=== PATIENT | male | born 1960 | race Caucasian/White ===

== ENCOUNTER 2017-07-22 13:57 | Emergency (ER) | payer OTHER ==
[2017-07-22 14:25] VITALS: BP 162/90
--- NOTE | 2017-07-22 15:08 | UC ---
FLU HPI - HPI Summary HPI Summary: Pt presents with fatigue and headache for 1 month. He has a headache 4-5 days out of the week. He had labwork done through his insurance company on 07/01 and his BUN was abnormal, but he is unsure what the value was. Since that time he has been feeling increasingly faint. He tells me that he has been taking 2-3 tylenol every 3-4 hours for about a month due to his headache. He also says that about 2 years ago this happened to him and he was in the ER requiring 6 liters of fluid. He has a history of bariatric surgery and diabetes. Denies fever, chills, recent illness, or recent injury. No abdominal pain, n/v/d/c - History of Current Complaint Chief Complaint: UCGeneralIllness Stated Complaint: DEHYDRATED Time Seen by Provider: 07/22/17 14:23 Hx Obtained From: Patient Pain Intensity: 0 Pain Scale Used: 0-10 Numeric - Allergy/Home Medications Allergies/Adverse Reactions: Allergies Allergy/AdvReac Type Severity Reaction Status Date / Time Adhesive Tape Allergy BURNING, Verified 07/22/17 14:26 IRRITATION TO SKIN clindamycin Allergy Diarrhea Verified 07/22/17 14:26 Penicillins Allergy Unknown Verified 07/22/17 14:26 Reaction Details BEE STING Allergy Anaphylatic Uncoded 07/22/17 14:26 Shock Home Medications: Home Medications Acetaminophen [Acetaminophen Extra Strength] 2 - 3 tab PO Q3HR PRN 07/22/17 [ History Confirmed 07/22/17] Albuterol HFA INHALER* [Ventolin HFA Inhaler*] 1 puff INH Q4HR PRN 07/22/17 [ History Confirmed 07/22/17] Vilazodone (NF) [Viibryd (NF)] 20 mg PO DAILY 07/22/17 [History Confirmed ] PMH/Surg Hx/FS Hx/Imm Hx Endocrine History: Diabetes Respiratory History: Asthma - Surgical History Surgical History: Yes Surgery Procedure, Year, and Place: 2010 LAPAROSCOPIC GASTRIC BYPASS- [facility] , [facility] [place] 2011 LAPAROSCOPIC REDUCTION AND REPAIR INTERNAL HERNIA, [facility] [place] - Family History Known Family History: Positive: Unknown - Social History Lives: With Family Alcohol Use: Rare Alcohol Amount: 2xmonth Substance Use Type: None Smoking Status (MU): Former Smoker Type: Cigarettes Amount Used/How Often: 1PPD Have You Smoked in the Last Year: No When Did the Patient Quit Smoking/Using Tobacco: 1995 - Immunization History Most Recent Influenza Vaccination: 2013 Most Recent Tetanus Shot: unable to determine Most Recent Pneumonia Vaccination: 2012 Review of Systems Constitutional: Fatigue, Other - Body aches Skin: Negative Eyes: Negative ENT: Negative Respiratory: Negative Cardiovascular: Negative Gastrointestinal: Negative Genitourinary: Hematuria Motor: Negative Neurovascular: Negative Musculoskeletal: Negative Neurological: Headache Psychological: Negative All Other Systems Reviewed And Are Negative: Yes Physical Exam - Summary Physical Exam Summary: GENERAL: NAD. WDWN. No pain distress. SKIN: No rashes, sores, ulcers, masses, lesions. HEENT: Head: AT/NC Eyes: EOM intact. PERRLA. NECK: Supple. Nontender. No lymphadenopathy. CHEST: CTAB. No r/r/w. No accessory muscle use. Breathing comfortably and in no distress. CV: Bradycardia. Without m/r/g. Pulses intact. Brisk cap refill. ABDOMEN: NTTP. Bowel sounds present. No CVA tenderness. NEURO: Alert. CN II-XII grossly intact. PSYCH: Age appropriate behavior. Triage Information Reviewed: Yes Vital Signs: Initial Vital Signs Temp 96.9 F 07/22/17 14:06 Pulse 50 07/22/17 14:06 Resp 16 07/22/17 14:06 BP 162/90 07/22/17 14:06 Pulse Ox 100 07/22/17 14:06 Diagnostics - EKG Cardiac Rate: Bradycardia Cardiac Rhythm: Sinus: Normal ST Segment: Normal Flu Course/Dx - Course Course Of Treatment: EKG - rate 47bpm. Sinus bradycardia. No ST changes as read by Dr. Jiang. UA with protein, glucose, blood, nitrite, bilirubin, and leuks. POC glucose at 145. I spoke with the patient and advised him to go by ambulance to the [facility] [place] ED for further evaluation. I am suspicious of lactic acidosis, rhabdo, renal failure, sepsis, and dehydration. He refused ambulance transfer. I explained the risks of this to him and he signed out AMA, but said he would go to the ED by private car. - Differential Dx/Diagnosis Provider Diagnoses: Hematuria. Headache. Dizziness. Bradycardia. Proteinuria Discharge - Discharge Plan Condition: Fair Disposition: AGAINST MEDICAL ADVICE Referrals: Kathryn Espitia DC [Primary Care Provider] -
--- NOTE | 2017-07-23 15:10 | PN ---
Progress Note - Progress Note Date of Service: 07/23/17 Note: FOllow up labs- + for UTI, patient left AMA from urgent care, patient given Bactrim by AJuan Antonio Gutierrez, nurse to call to confirm. -Vandana Pickett.
== END 2017-07-22 14:46 | disposition left against medical advice (07) ==
LOC: UCEAST 13:57
DX: N39.0 Urinary tract infection, site not specified (principal); B96.20 Unspecified Escherichia coli [E. coli] as the cause of diseases classified elsewhere; R31.9 Hematuria, unspecified; R80.9 Proteinuria, unspecified; R51 Headache; R42 Dizziness and giddiness; R00.1 Bradycardia, unspecified; E11.9 Type 2 diabetes mellitus without complications; J45.909 Unspecified asthma, uncomplicated; Z98.84 Bariatric surgery status; Z88.1 Allergy status to other antibiotic agents; Z91.030 Bee allergy status; Z88.0 Allergy status to penicillin; Z91.048 Other nonmedicinal substance allergy status; Z87.891 Personal history of nicotine dependence
CPT/HCPCS: 81003; 87077; 87086; 87186; 93005; 99212; G0463

== ENCOUNTER 2017-07-22 14:56 | Observation (INO) | payer OTHER ==
[2017-07-22] MEDS ORDERED: NS 0.9% 1000 ML* 1,000 ML IV ONE (15:20)
[2017-07-22] MEDS ORDERED: Meclizine TAB* 12.5 MG PO ONE (15:20)
[2017-07-22 15:53] LABS: ABS Basophils 0 10^3/ul (0-0.2); ABS Eosinophils 0 10^3/ul (0-0.6); ABS Lymphocytes 1.2 10^3/ul (1.0-4.8); ABS Monocytes 0.6 10^3/ul (0-0.8); ABS Neutrophils 10.5 10^3/ul (1.5-7.7); ABS Nucleated RBC 0 10^3/ul; Eosinophil % 0.3 % (0-6); Hematocrit 43 % (42-52); Hemoglobin 14.3 g/dl (14.0-18.0); Lymphocyte % 9.3 % (25-47); Mean Corpuscular HGB Conc 34 g/dl (31-36); Mean Corpuscular Hemoglobin 28 pg (27-31); Mean Corpuscular Volume 84 fL (80-94); Mean Platelet Volume 7 um3 (7.4-10.4); Nucleated Red Blood Cells % 0; Platelet Count 234 10^3/ul (150-450); Red Cell Distribution Width 14 % (10.5-15); White Blood Count 12.4 10^3/ul (3.5-10.8)
[2017-07-22 16:16] LABS: EGFR Non-African American 94.9 (>60)
--- NOTE | 2017-07-22 16:18 | RAD ---
Indication: Dizziness. CT of the brain was performed without IV contrast. Ventricular structures are midline. No midline shift is noted. The extra-axial spaces are unremarkable. There is no evidence of intracranial mass or hemorrhage. Hypodensity in the right posterior parietal lobe is noted. This is consistent with infarct age of which is undetermined. Paranasal sinuses and orbits are unremarkable. IMPRESSION: No intracranial lesion is identified. Right posterior parietal lobe infarct. Age of this is undetermined. No hemorrhage is noted.
[2017-07-22] MEDS ORDERED: Aspirin Low Dose CHEW TAB* 81 MG PO ONE (16:30)
[2017-07-22] MEDS ORDERED: Morphine INJ* 4 MG/ML 1 ML SYRINGE (NEW SYRINGE VERSION) IV ONE (16:30)
[2017-07-22] MEDS ORDERED: Ondansetron INJ* 2 MG/ML VIAL IV ONE (16:31)
--- NOTE | 2017-07-22 16:34 | RAD ---
Indication: Dizziness. 2 views of the chest including dual energy PA views demonstrates no mediastinal shift. Heart is normal size and configuration. Lung bryan appear clear. IMPRESSION: No active cardiopulmonary disease is noted.
[2017-07-22 17:06] LABS: Urine Appearance Turbid; Urine Blood 3+ (Negative); Urine Color Amber; Urine Ketones Trace (Negative); Urine Protein 2+(100 mg/dL) (Negative); Urine Specific Gravity 1.016 (1.010-1.030); Urine Urobilinogen Negative (Negative)
[2017-07-22] MEDS ORDERED: Ciprofloxacin 400MG IVPREMIX(* 400 MG/200 ML BAG IVPB ONE (17:29)
[2017-07-22] MEDS ORDERED: NS 0.9% 1000 ML* 1,000 ML IV SCH (18:00)
[2017-07-22] MEDS ORDERED: Ondansetron INJ* 2 MG/ML VIAL IV PRN (18:00)
[2017-07-22] MEDS ORDERED: Acetaminophen TAB* 325 MG PO PRN (18:00)
[2017-07-22] MEDS ORDERED: Albuterol HFA INHALER* 8 gm MDI INH PRN (18:03)
[2017-07-22] MEDS ORDERED: Iodixanol* (CONTRAST) 320 MG/ML 100 ML SDV IV ONE (18:39)
[2017-07-22] MEDS ORDERED: cefTRIAXone VIAL(*) 1,000 MG in NS 0.9% 50 ML* 50 ML IVPB SCH (20:00)
--- NOTE | 2017-07-22 20:00 | RAD ---
Indication: Stroke. Contrast: Administered 80.3 ml of VISAPAQUE 320 mg/ml CTA of the neck was performed after IV contrast demonstration. CTA of the head was also performed. Coronal and sagittal reconstructed images were obtained. The aortic arch is unremarkable. The great vessels are unremarkable. The common carotid arteries demonstrates minimal intimal wall thickening. Plaque is noted in the left carotid bulb. The left internal carotid artery demonstrates no evidence of carotid artery dissection. The right carotid artery also demonstrates no evidence of carotid artery dissection although the internal carotid arteries are tortuous bilaterally. The vertebral arteries demonstrates no evidence of vertebral artery dissection. No stenosis is noted. The intracranial carotid arteries demonstrates the cavernous portions of the carotid arteries to be patent. Anterior and middle cerebral arteries are intact. No evidence of aneurysmal dilatation or branch occlusion is noted. The basilar artery and posterior cerebral arteries are otherwise unremarkable. No aneurysmal dilatation is noted. IMPRESSION: No evidence of carotid artery or vertebral artery dissection. No aneurysmal dilatation is noted. No branch occlusion is noted. Minimal calcific plaque is noted in the left carotid bulb.
--- NOTE | 2017-07-22 20:48 | RAD ---
Indication: Dizziness. Sagittal and axial T1, axial T2, FLAIR, diffusion and susceptibility weighted images of the brain were obtained. Comparison is made with prior CT done earlier the same day. Ventricular structures are midline. No midline shift is noted. The extra-axial spaces are unremarkable. There is no evidence of intracranial mass or hemorrhage. Periventricular signal abnormality likely represents chronic ischemic White matter change on the FLAIR images. Encephalomalacia involving the right posterior parietal lobe is noted. No restriction of diffusion is noted. Susceptibility weighted images demonstrates no evidence of susceptibility weighted artifact. The FLAIR images demonstrates no significant areas of vasogenic edema with scattered punctate subcortical signal abnormalities. The brainstem and posterior fossa are unremarkable. The cerebellopontine angles are unremarkable. Mastoid air cells and paranasal sinuses are otherwise unremarkable. IMPRESSION: Chronic ischemic White matter change. No evidence of acute infarct is noted.
--- NOTE | 2017-07-22 20:59 | HP ---
CC: [facility] Tamie Levin; Dr. Oliveira * HISTORY AND PHYSICAL: DATE OF ADMISSION: 07/22/17 PRIMARY CARE PROVIDER: [facility] Poonam. ATTENDING PHYSICIAN WHILE IN THE HOSPITAL: Dr. Samson Yeboah * (report dictated by Herman Pacheco NP) CONSULTING NEUROLOGIST: Dr. Oliveira. CHIEF COMPLAINT: Dizziness. HISTORY OF PRESENT ILLNESS: Mr. Howard is a 56-year-old male patient. He has a history of cluster headaches, history of asthma, also carries a history of anxiety. He comes into the ED today stating that he was out lunch today with a friend and he was noticing that he just felt dizzy, felt lightheaded. He had been noticing this morning that he was having difficulty with urination. His urine appeared to be very concentrated. He was having urgency and hesitancy with the stream this afternoon. When he did urinate, he did have some pain with urination. He denied any fevers or chills. No flank pain or abdominal pain. He did notice some hematuria as well. He was concerned though because of the dizziness and he thought maybe he was dehydrated. He says he did not feel like the room was spinning. He said the dizziness got worse when he stood up. Denied having any facial drooping. Denied having any weakness to one side. Denied having any trouble with speech. He was concerned he went to Urgent Care and they transferred him to the hospital here, because there was concern on his initial EKG, there was bradycardia. We were asked to evaluate and ultimately it was found that the patient had the UTI and it appeared that he had a stroke of indeterminate age on the right parietal area. He denies having any vomiting or diarrhea. Denies having any abdominal pain. PAST MEDICAL HISTORY: Significant for: 1. Cluster headaches. 2. Anxiety. 3. Asthma. PAST SURGICAL HISTORY: 1. He has had gastric bypass. 2. He has had inguinal hernia repair. HOME MEDICATIONS: Include: 1. Tylenol Extra Strength 1 to 3 tablets every 3 hours as needed. 2. He also is taking Viibryd 20 mg daily. 3. He is taking multivitamin 2 tablets p.o. b.i.d. 4. Albuterol 1 puff inhaled every 4 hours as needed. ALLERGIES TO MEDICATIONS: Include CLINDAMYCIN and PENICILLIN along with TAPE. FAMILY HISTORY: His mother did have a history of a brain aneurysm. Father had a history of GA and CVA. His multiple relatives, multiple brothers with cancers and sisters also with cancer. He also has a sister that did have alpha antitrypsin disorder. SOCIAL HISTORY: He is a former smoker, he quit in 1995. He does not drink alcohol. Surrogate decision maker is his son. REVIEW OF SYSTEMS: There is no documented fever. He denied having any significant weight change. There was no double vision. He denies having any ear discharge. He denied having any rhinorrhea. No sore throat, no thyroid enlargement. Denies having any chest pain. There is no orthopnea. No nocturnal dyspnea. There was no loss of consciousness. No pruritus and no skin ulceration. Again, no nausea, no vomiting. There was dysuria, there was urgency and frequency. Review of 14 systems completed, all others negative. PHYSICAL EXAMINATION GENERAL: At this time, Mr. Howard is a 56-year-old male patient. He is sitting in the ED stretcher. He does not appear to be in any acute distress. VITAL SIGNS: Blood pressure 181/85, pulse 61, respirations 17, O2 sat 95%, temperature 97.4. HEENT: Head: Atraumatic, normocephalic. Eyes: EOMs are intact. Sclerae anicteric, not pale. Throat: Oral mucosa appears to be moist. No oropharyngeal erythema. NECK: Supple. LUNGS: Clear to auscultation bilaterally. No wheezing, rales, or rhonchi. HEART: Sounds S1, S2. Regular rate and rhythm. No murmurs, rubs, or gallops. ABDOMEN: Soft, flat, nontender. Bowel sounds were present. EXTREMITIES: Pulses were 2+ throughout. He had 5/5 strength. NEUROLOGIC: The patient is awake, he is alert, he is oriented x3. Finger-to- nose intact bilaterally. [id number] intact bilaterally. He had no gross focal deficits. SKIN: Intact. DIAGNOSTIC STUDIES/LAB DATA: WBC of 4.4, RBC of 5.10, hemoglobin 14.3, hematocrit of 43, platelet count of 234. Sodium 131, potassium of 3.9, chloride 99, bicarb of 27, BUN 10, creatinine 0.84, glucose of 112, lactate 0.8 , calcium 9.1, mag 2.1. Total bili 0.8, AST 22, ALT 17, alk phos 79. CK 139. Troponin 0. CRP of 1. TSH was normal. Urine showed 2+ proteins, trace ketones , 3+ blood, positive nitrite, 3+ leukocyte esterase, 3+ wbc's, 3+ rbc's, 3+ glucose. Toxicology was negative. He did have an EKG obtained today. It does show a sinus bradycardia at a rate of 47. No ST elevations or T-wave inversions. When you look at the repeat EKG , the heart rate now is 53. When you look back to an EKG from 2 years ago, his heart rate was noted to be 51 and no acute changes in the morphology. No ST elevations or T-wave inversions. He did have a chest x-ray obtained today which revealed no active cardiopulmonary disease. He had a CT brain obtained today, impression: No intracranial lesions identified, right posterior parietal lobe infarct, age of this is indeterminate. No hemorrhage is noted. Old medical records were reviewed. ASSESSMENT AND PLAN: Mr. Howard is a 56-year-old male patient coming into the ED today with complaints of dizziness. On evaluation here, it was found that he had an age-indeterminate cerebrovascular accident. Also, found to have urinary tract infection. We were asked to evaluate for admission. He will be admitted under observation status for: 1. Dizziness. Etiology is unclear, certainly could be related to the urinary tract infection exacerbating an old stroke. The plan at this point will be to get Neurology input, start the patient on an aspirin. Work up the cerebrovascular accident with CTA head and neck, echo with bubble study, get an MRI of the brain, check lipid panel, A1c in the morning. Place him on telemetry. Get neuro checks every 2 hours and follow this closely. 2. Urinary tract infection. I did put him on Rocephin. When he has finished the antibiotic course, he will need to follow up with Urology in the outpatient setting. 3. History of cluster headaches. P.r.n. Tylenol has been ordered. I am checking the Tylenol level as he has been taking as excessive amount. Education has been provided to the patient. This will need to be reinforced at discharge about the amount that he has been able to take. 4. Asthma. I have ordered his p.r.n. albuterol. 5. DVT prophylaxis. SCDs. 6. Elevated blood pressure in the setting of possible acute cerebrovascular accident. I will allow for permissive hypertension. If the systolics get above 200 or the diastolics above 110, I will treat. 7. Code status. Full code. 8. Fluids, electrolytes, and nutrition. He can have a heart-healthy diet. TIME SPENT: On admission was 60 minutes, greater than half of the time was spent [id number] with the patient obtaining my history and physical, other half of the time was spent going over the plan of care with the patient and implementing plan of care. I did discuss the plan of care with my attending, Dr. Yeboah; he is in agreement. HERMAN PACHECO, AMI [id number]/[facility] #: [id number] KIRK
[2017-07-23 06:28] LABS: ABS Basophils 0.1 10^3/ul (0-0.2); ABS Eosinophils 0.2 10^3/ul (0-0.6); ABS Lymphocytes 1.7 10^3/ul (1.0-4.8); ABS Monocytes 0.7 10^3/ul (0-0.8); ABS Neutrophils 7.8 10^3/ul (1.5-7.7); ABS Nucleated RBC 0 10^3/ul; Eosinophil % 1.8 % (0-6); Hematocrit 40 % (42-52); Hemoglobin 13.4 g/dl (14.0-18.0); Lymphocyte % 16.5 % (25-47); Mean Corpuscular HGB Conc 34 g/dl (31-36); Mean Corpuscular Hemoglobin 28 pg (27-31); Mean Corpuscular Volume 85 fL (80-94); Mean Platelet Volume 7 um3 (7.4-10.4); Nucleated Red Blood Cells % 0; Platelet Count 218 10^3/ul (150-450); Red Blood Count 4.72 10^6/ul (4.0-5.4); Red Cell Distribution Width 14 % (10.5-15); White Blood Count 10.4 10^3/ul (3.5-10.8)
[2017-07-23 06:38] LABS: INR 1.01 (0.77-1.02)
[2017-07-23 06:45] LABS: EGFR Non-African American 93.6 (>60)
[2017-07-23] MEDS ORDERED: Aspirin Low Dose CHEW TAB* 81 MG PO SCH (09:00)
[2017-07-23] MEDS ORDERED: VILAZODONE 10 MG PO SCH (09:00)
[2017-07-23 09:02] VITALS: BP 143/87
--- NOTE | 2017-07-23 09:17 | ED ---
Sourav Lee Angela, scribed for Sebastián Romero MD on 07/22/17 at 1528 . Dizziness - HPI Summary HPI Summary: This pt is a 56 y/o male presenting to [facility] referred by [facility] c/o frequent headaches for the past 1 month associated with dizziness today. Pt describes dizziness as feeling like passing out. Denies room spinning sensation. Pt notes additionally he has felt fatigued, lightheaded for the past couple of hours, and dehydrated x3 days. Denies chest pain, SOB, fever, chills, abd pain. He reports he has been drinking "too much cappuccino" and has had decreased in water intake. Pt had lab work on 07/01/17 and notes everything was normal except he had an "orange" BUN. PMHx includes bariatric surgery and diabetes. - History Of Current Complaint Chief Complaint: EDGeneral Stated Complaint: ABNORMAL EKG-CC TRANSFER Hx Obtained From: Patient Onset/Duration: Still Present Timing: Days Severity Currently: Moderate Character: Lightheaded, Weak Aggravating Factor(s): Nothing Alleviating Factor(s): Nothing Associated Signs And Symptoms: Positive: Other: - NEG: abd pain. Negative: Chest Pain, SOB, Fever, Chills - Allergies/Home Medications Allergies/Adverse Reactions: Allergies Allergy/AdvReac Type Severity Reaction Status Date / Time Adhesive Tape Allergy BURNING, Verified 07/22/17 14:26 IRRITATION TO SKIN clindamycin Allergy Diarrhea Verified 07/22/17 14:26 Penicillins Allergy Unknown Verified 07/22/17 14:26 Reaction Details BEE STING Allergy Anaphylatic Uncoded 07/22/17 14:26 Shock Home Medications: Home Medications Pediatric Multivitamin No.101 [Gummy] 2 tab PO BID 07/22/17 [History Confirmed 07/22/17] PMH/Surg Hx/FS Hx/Imm Hx Endocrine/Hematology History: Reports: Hx Diabetes - HX OF BEFORE WEIGHT LOSS Cardiovascular History: Reports: Hx Hypertension - HX OF, BUT NO MEDICATION Denies: Hx Congestive Heart Failure Respiratory History: Reports: Hx Asthma - USES INHALER, Hx Chronic Bronchitis, Hx Chronic Obstructive Pulmonary Disease (COPD), Hx Pneumonia, Hx Sleep Apnea - HX OF GI History: Reports: Hx Gastroesophageal Reflux Disease - ACID REFLUX - NO MEDS , Other GI Disorders - gastric bypass surgery, 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 History: Denies: Hx Renal Disease Sensory History: Reports: Hx Contacts or Glasses - GLASSES Denies: Hx Hearing Aid Opthamlomology History: Reports: Hx Contacts or Glasses - GLASSES Neurological History: Reports: Hx Headaches - CLUSTER HEADACHES, Hx Migraine - EVERY 2 WEEKS - Surgical History Surgery Procedure, Year, and Place: 2010 LAPAROSCOPIC GASTRIC BYPASS- [facility] , [facility] [place]. 2011 LAPAROSCOPIC REDUCTION AND REPAIR INTERNAL HERNIA, [facility] [place] Hx Anesthesia Reactions: No Infectious Disease History: No Infectious Disease History: Denies: Traveled Outside the [place] in Last 30 Days - Family History Known Family History: Positive: Cardiac Disease - Father: [place] Family History: Father: stroke. Sister: liver and stomach CA - Social History Alcohol Use: Rare Alcohol Amount: 2xmonth Substance Use Type: Reports: None Smoking Status (MU): Former Smoker Type: Cigarettes Amount Used/How Often: 1PPD Have You Smoked in the Last Year: No Review of Systems Constitutional: Other - dehydrated Positive: Fatigue. Negative: Fever, Chills Negative: Chest Pain Negative: Shortness Of Breath Negative: Abdominal Pain Neurological: Other - POS: dizziness, lightheadedness Positive: Headache All Other Systems Reviewed And Are Negative: Yes Physical Exam - Summary Physical Exam Summary: VITAL SIGNS: Reviewed. GENERAL: Patient is a well-developed and nourished male who is lying comfortable in the stretcher. Patient is not in any acute respiratory distress. HEAD AND FACE: No signs of trauma. No ecchymosis, hematomas or skull depressions. No sinus tenderness. EYES: PERRLA, EOMI x 2, No injected conjunctiva, no nystagmus. EARS: Hearing grossly intact. Ear canals and tympanic membranes are within normal limits. MOUTH: Oropharynx within normal limits. NECK: Supple, trachea is midline, no adenopathy, no JVD, no carotid bruit, no c- spine tenderness, neck with full ROM. CHEST: Symmetric, no tenderness at palpation LUNGS: Clear to auscultation bilaterally. No wheezing or crackles. CVS: Regular rate and rhythm, S1 and S2 present, no murmurs or gallops appreciated. ABDOMEN: Soft, non-tender. No signs of distention. No rebound no guarding, and no masses palpated. Bowel sounds are normal. EXTREMITIES: FROM in all major joints, no edema, no cyanosis or clubbing. NEURO: Alert and oriented x 3. No acute neurological deficits. Speech is normal and follows commands. SKIN: Dry and warm GCS: 15 Triage Information Reviewed: Yes Vital Signs On Initial Exam: Initial Vitals Temp Pulse Resp BP Pulse Ox 97.4 F 46 18 162/86 98 07/22/17 14:58 07/22/17 14:58 07/22/17 14:58 07/22/17 14:58 07/22/17 14:58 Vital Signs Reviewed: Yes - Miguel A Coma Scale Best Eye Response: 4 - Spontaneous Best Motor Response: 6 - Obeys Commands Best Verbal Response: 5 - Oriented Coma Scale Total: 15 Diagnostics - Vital Signs Vital Signs Temp Pulse Resp BP Pulse Ox 07/22/17 14:58 97.4 F 46 18 162/86 98 - Laboratory Result Diagrams: 07/22/17 15:40 07/22/17 15:40 Lab Statement: Any lab studies that have been ordered have been reviewed, and results considered in the medical decision making process. - Radiology Chest XR Xray Interpretation: No Acute Changes - IMPRESSION: No active cardiopulmonary disease is noted. Dr. Romero has reviewed this radiology report. Radiology Interpretation Completed By: Radiologist - CT Brain CT CT Interpretation: No Acute Changes - IMPRESSION: No intracranial lesion is identified. Right posterior parietal lobe infarct. Age of this is undetermined. No hemorrhage is noted. Dr. Romero has reviewed this radiology report. CT Interpretation Completed By: Radiologist - EKG 15:00 Cardiac Rate: Bradycardia EKG Rhythm: Sinus Bradycardia - at 53 bpm EKG Interpretation: No ST elevation. - Additional Comments Diagnostic Additional Comments: MRI Brain official radiology report is pending. Please see [facility]. Dizzy Course/Dx - Course Assessment/Plan: This pt is a 56 y/o male presenting to [facility] referred by [facility] c/o frequent headaches for the past 1 month associated with dizziness today. Pt describes dizziness as feeling like passing out. Denies room spinning sensation. Pt notes additionally he has felt fatigued, lightheaded for the past couple of hours, and dehydrated x3 days. Denies chest pain, SOB, fever, chills, abd pain. He reports he has been drinking "too much cappuccino" and has had decreased in water intake. Pt had lab work on 07/01/17 and notes everything was normal except he had an "orange" BUN. PMHx includes bariatric surgery and diabetes. Test results without any significant abnormalities except for WBC of 12.4. Urinalysis is positive for UTI. Pt was given Ciprofloxacin for his UTI. Chest XR shows on active cardiopulmonary disease is noted. Head CT shows no intracranial lesion is identified. Right posterior parietal lobe infarct. Age of this is undetermined. No hemorrhage is noted. I discussed the case with Dr. Dao, neurologist, who recommends an MRI. Since the pt continues to be dizzy and feeling like passing out despite the Meclizine, I discussed the test results and findings with Dr. Yeboah, hospitalist, who accepted the pt for admission. Pt is hemodynamically stable, alert and oriented x3. - Diagnoses Provider Diagnoses: Near syncopal episode, Intractable dizziness, Undetermined CVA - Provider Notifications Discussed Care Of Patient With: Cal Dao Time Discussed With Above Provider: 16:33 Instructed by Provider To: Other - I discussed pt care with Dr. Dao, neurologist, who recommends an MRI. [17:15] I discussed with Dr. Yeboah, hospitalist, who has agreed to admit the pt. Discharge - Discharge Plan Condition: Stable Disposition: ADMITTED TO [facility] Referrals: No Primary Care Phys,NOPCP [Primary Care Provider] - The documentation as recorded by the Sourav ariza Angela accurately reflects the service I personally performed and the decisions made by me, Sebastián Romero MD.
--- NOTE | 2017-07-23 10:32 | DCNOTE ---
Subjective Date of Service: 07/23/17 Interval History: Pt reports he feels much better and would like to go home. No further hematuria , or urinary retention or urgency. Denies fever, chills, no flank or abd pain. No hx of UTI in the past. Recent sex with male partner., Objective Active Medications: Acetaminophen (Tylenol Tab*) 650 mg PO Q4H PRN PRN Reason: FEVER/PAIN Albuterol (Ventolin Hfa Inhaler*) 1 puff INH Q4H PRN PRN Reason: WHEEZING Aspirin (Aspirin Low Dose Tab*) 81 mg PO DAILY [facility] Last Admin: 07/23/17 08:48 Dose: 81 mg Sodium Chloride (Ns 0.9% 1000 Ml*) 1,000 mls @ 100 mls/hr IV PER RATE [facility] Last Admin: 07/22/17 22:47 Dose: 100 mls/hr Ceftriaxone Sodium 1,000 mg/ (Sodium Chloride) 50 mls @ 200 mls/hr IVPB Q24H [facility] Last Admin: 07/22/17 18:45 Dose: 200 mls/hr Ondansetron HCl (Zofran Inj*) 4 mg IV Q6H PRN PRN Reason: NAUSEA Vilazodone HCl (Viibryd (Nf)) 20 mg PO DAILY [facility] PRN Reason: Protocol Last Admin: 07/23/17 09:22 Dose: Not Given Vital Signs - 8 hr 07/23/17 07/23/17 07/23/17 02:35 03:15 08:00 Temperature 97.9 F 97.9 F Pulse Rate 67 62 Respiratory 18 16 16 Rate Blood Pressure 152/80 140/84 (mmHg) O2 Sat by Pulse 96 96 Oximetry 07/23/17 08:44 Temperature 98.2 F Pulse Rate 62 Respiratory 16 Rate Blood Pressure 143/87 (mmHg) O2 Sat by Pulse 96 Oximetry Oxygen Devices in Use Now: None Appearance: well developed 56 yo male A+O x3 in NAD Eyes: No Scleral Icterus, PERRLA Ears/Nose/Mouth/Throat: NL Teeth, Lips, Gums, Mucous Membranes Moist Neck: NL Appearance and Movements; NL JVP Respiratory: Symmetrical Chest Expansion and Respiratory Effort, Clear to Auscultation Cardiovascular: NL Sounds; No Murmurs; No JVD, RRR, No Edema Abdominal: NL Sounds; No Tenderness; No Distention Lymphatic: No Cervical Adenopathy Extremities: No Edema, No Clubbing, Cyanosis Skin: No Rash or Ulcers, No Nodules or Sclerosis Neurological: Alert and Oriented x 3, NL Sensation, NL Gait, NL Muscle Strength and Tone Lines/Tubes/Other Access: Clean, Dry and Intact Peripheral IV Nutrition: Taking PO's Result Diagrams: 07/23/17 05:52 07/23/17 05:52 Assess/Plan/Problems-Billing Assessment: 56 yo male with PMH of cluster VALADEZ, Hx of asthma, anxiety who presented with dizziness, found to have a UTI and incidental old occipital infarct - Patient Problems (1) UTI (urinary tract infection) Comment: + u/a with urinary retention, hematuria - now resolved. Will DC home on Bactrim. Awaiting cx - I will call pt with urine cx results today or tomorrow. Follow up with PCP. Renal function normal, No CVA pain. Low suspicion for stone. No new sexual partners, recently this week had sex with male partner. (2) Dizziness Comment: resolved. Possibly UTI and dehydration?? Na+ was 131 on admission - now resolved with IVFs (3) CVA (cerebral vascular accident) Comment: old occiptal infarct. Appreciate neuro consult Dr. Oliveira. Follow up as outpt. Will need outpt echo with bubble. Monitored on tele, no noted arrythmias. DC home on ASA 81 mg po daily Status and Disposition: OBV. DC to home. Stable. Follow up with Neurology and Dr. Han
--- NOTE | 2017-07-23 12:41 | CONS ---
CC: Dr. Sonia Han NEUROLOGY CONSULTATION: DATE OF CONSULT: 07/23/17 LOCATION: He is in room 443. REFERRING PROVIDER: Herman Pacheco NP CHIEF COMPLAINT: Dizziness, abnormal imaging. HISTORY OF PRESENT ILLNESS: Gabriel Howard is a 56-year-old right-handed man who yesterday Morning noted difficulty urinating and hematuria. He went out I believe for some brunch or lunch and after that, he tried to urinate again and he urinated brown urine. He felt somewhat faint but not vertiginous an d did not have any other symptoms. He went to the [facility] where he was found to be br adycardic and so he was recommended to be transferred to the emergency room. In the emergency room, he had a CT scan of the brain apparently because of the dizziness which revealed a right occipital in farction. This led to an MRI of the brain, which confirmed a right occipital infarction interpreted as a posterior parietal infarction and was felt to be chronic. He was admitted. He has been treated with antibiotics and he feels well today. There is no prior history of transient neurological deficits or stroke. He has a history of obesity, hypertension, diabetes and smoked over 20 years ago. His hypertension and diabetes resolved after b ariatric surgery and weight loss. There is specifically no history of transient visual loss. PAST MEDICAL HISTORY: Notable for bariatric surgery, prior hypertension and diabetes, prior tobacco use over 20 years ago. MEDICATIONS: Medications at home consist of: 1. Acetaminophen as needed for headaches. 2. Viibryd 20 mg p.o. daily. 3. Multivitamins. 4. Albuterol p.r.n. Medications here in the hospital include: 1. Ceftizoxime 1000 mg IV q. 24 hours. 2. Viibryd 20 mg p.o. daily. 3. Aspirin 81 mg p.o. daily. ALLERGIES: He is allergic to PENICILLIN and CLINDAMYCIN. FAMILY HISTORY: Notable for multiple family members with cancer. REVIEW OF SYSTEMS: Notable for frequent dull headaches which resolved with acetaminophen. Occasiona lly he gets more severe headache. There is no history of visual disturbances with his headaches. Th ere is no history of cardiac disease, recent shortness of breath, chest pain, visual changes, seizure s, renal, GI, pulmonary, endocrine, infectious, dermatological, or psychiatric disorders other than t he history of present illness and past medical history. PHYSICAL EXAM: He is thin, but well hydrated. Blood pressure most recently 159/92, although it was up to 180 at one point systolic. He has been afebrile, most recently temperature 97.9. Respiratory rate 16 and oxygen saturations 96% on room air. Heart rates running in the 60s and is regular. There are no murmurs. Lungs are clear. Carotid pulses are present. There are no bruits. Neurologic exam: Pupils and fundi are normal. Visual bryan are full to confrontation bilaterally a nd tested monocularly. Facial musculature and facial sensation are intact and symmetric. Palate and tongue are normal and speech is clear. Hearing is intact and neck muscle strength is normal. Motor exam reveals normal muscle tone, bulk and strength proximally and distally in upper and lower extrem ities. Sensory exam is intact in upper and lower extremities to vibration and light touch. Reflexes are intact and symmetric and plantar responses are flexor bilaterally. A brief testing of g ait is normal. Romberg signs are absent. There is no tremor. Finger taps are normal in the hands. He is alert and oriented and an excellent detailed historian. Memory is intact and language is fluen t. He has good attention, concentration, and fund of knowledge. DIAGNOSTIC STUDIES/LAB DATA: Includes the MRI and CT scan of which images were personally reviewed. Chemistry profile notable for sodium at 131 when he came in, up to 133 this morning. Glucose was 112 when he was admitted, 90 yesterday. Otherwise chemistry profile was normal. Cholesterol is 113, LD L 54. TSH 1.18. CBC notable for an elevated white blood cell count of 12.4 when he came in, 10.4 this morning. There was a slight left shift yesterday but that is normalized as of this morning. Urinalysis notable for 3+ blood, 3+ leukocyte esterase, positive nitrite. Urine was turbid, 2+ red blood cells. Tox scree n yesterday is negative. INR normal at 1.01. CT angiogram of the head and neck is reviewed and reveals some calcification in the aortic bifurcatio ns but no significant stenosis. There is no intracranial stenosis or aneurysms. IMPRESSION: Old right occipital infarction. Appears to have been asymptomatic and he has normal vis ual bryan to confrontation testing today. His risk factors of hypertension and diabetes and prior t obacco use are all resolved. His lipid profile is excellent. PLAN/RECOMMENDATIONS: Recommend treating with aspirin 81 mg per day. He does need an echocardiogram , but this was remote stroke by imaging and so I do not think he needs to remain in the hospital for that. I think he would be discharged for outpatient echocardiogram with bubble study. I can see him in followup in my office and follow up to make sure there are no loose ends in terms of vascular ris k factor control. I explained my recommendations to Mr. Howard. [id number]/[facility] #: [id number]
--- NOTE | 2017-07-23 15:59 | DS ---
AMENDED REPORT NOW INCLUDES COSIGNER DESIGNATION - ESIGNED BEFORE ADJUSTMENT CC: Dr. Sonia Han; Dr. Oliveira * DISCHARGE SUMMARY: DATE OF ADMISSION: 07/22/17 DATE OF DISCHARGE: 07/23/17. HOSPITAL STATUS: Observation. PROVIDER: Yolanda Oh NP. ATTENDING PHYSICIAN: Dr. Jurado * (report dictated by Yolanda Oh NP). PRIMARY CARE PROVIDER: Dr. Sonia Han. CONSULTING HOSPITAL PROVIDER: Dr. Oliveira, Neurologist. DISCHARGE DIAGNOSES: 1. Urinary tract infection, uncomplicated. 2. Dizziness, resolved; suspect in the setting of urinary tract infection and dehydration with a noted low sodium of 131, which resolved with IV fluids. 3. Old occipital infarct, which is an incidental finding. SECONDARY DIAGNOSES: 1. Cluster headaches. 2. Anxiety. 3. Asthma. DISCHARGE MEDICATIONS: 1. Acetaminophen 1000 mg p.o. q. 8 hours p.r.n. 2. Viibryd 20 mg p.o. daily. 3. Pediatric multivitamin 2 tab p.o. b.i.d. 4. Ventolin HFA inhaler 1 puff INH q. 4 hours p.r.n. New medications, 1. Bactrim DS 800/160 mg 1 tab p.o. b.i.d. x7 days. 2. Aspirin 81 mg p.o. daily. 3. Probiotics 1 cap p.o. daily. HISTORY OF PRESENT ILLNESS AND HOSPITAL COURSE: Please see history and physical by Herman Pacheco NP, for full admission details, but in summary, this is a 56-year- old male who presented to the emergency department on 07/22/17 with complaint of dizziness, also reporting a sense of lightheadedness. He also reported that he had noticed that morning he had difficulty with urination and his urine appeared to be very concentrated and he was experiencing urinary urgency and hesitancy with his stream in the afternoon. He reported some pain with urination and noted 2 drops of blood after urinating, and decided to come to the emergency department for further evaluation. He was admitted for dizziness and urinary tract infection. He underwent workup to rule out stroke, which included a brain CT, brain MRI, and a head CTA. The brain MRI did show an old occipital infarct per neurologist, Dr. Oliveira. His head CTA showed no evidence of carotid artery or vertebral artery dissection. No aneurysmal dilatation noted. No branch occlusion is noted. There were minimal calcific plaque noted in the carotid bulb. The patient's dizziness resolved after he was hydrated with IV fluids. His sodium on admission was 131, which resolved after IV fluids were given. Most likely his dizziness was secondary to dehydration in the setting of low sodium and infection. Dr. Oliveira rounded on the patient this morning and reported he is stable for discharge to home. He will need to have an outpatient transthoracic echocardiogram and bubble study. The patient has been given the phone number of [facility] to call and make an appointment on Tuesday. In regards to the patient's urinary tract infection, his UA is abnormal along with his symptoms of dysuria, hematuria, urgency and frequency. Today, on evaluation all of these symptoms have resolved. He reports he feels that he is at his baseline and would like to go home. He denies any pain, fever, chills, nausea, vomiting, CVA or back pain. He denies ever having a history of UTI before in the past. He denies any new sexual partners. He does report he had unprotected sex with his male partner this week prior to these symptoms. I have low suspicion for an obstructing stone. His creatinine has remained normal throughout hospitalization. He has no history of stones and has no pain. I did discuss with the patient, I would like him to follow up closely with his primary care provider and if he has any concerning symptoms to return to the emergency department. As well, if he develops another urinary tract infection, he will require an evaluation by urology. Urine culture is still pending. At the time of discharge, the patient has been given my personal cell phone number and we will connect tomorrow when the culture results, if not sooner. In regards to the incidental finding of an old occipital stroke, the patient will follow up with Neurology as an outpatient. He has been put on aspirin 81 mg p.o. daily. His fasting lipid profile this morning were triglycerides 74, cholesterol 113, LDL 54, HDL 43.8. Other labs are unremarkable. The patient is stable for discharge to home. It is noted that he is a little hypertensive throughout his hospitalization. Yesterday, noting on admission, blood pressure between 150 and 180. This morning they are improved between systolically 130 and 140. The patient will need to followup with his primary care provider to determine if he needs further control of this. Currently, on discharge his blood pressure is 130/72. His drug screen was negative. DISCHARGE PLAN: 1. Follow up with primary care provider, Dr. Sonia Han within 1 week. 2. Follow up with Dr. Oliveira as an outpatient. The patient has been given his office phone number. 3. The patient is to call [facility] on Tuesday for an outpatient echocardiogram with bubble study, results to Dr. Oliveira and Dr. Sonia Han. 4. Follow up for possible hypertension. 5. The patient was instructed to return to the emergency department with any concerning symptoms. 6. The patient is stable to discharge home. TIME SPENT: Approximately 60 minutes was spent on this discharge. The patient is stable for discharge home. YOLANDA OH, AMI [id number]/[facility] #: [id number] KIRK
== END 2017-07-23 11:33 | disposition home or self-care (01) ==
LOC: ED 14:56 → MEDTELE 17:58
PROVIDERS: ADMIT Internal Medicine; ATTEND Internal Medicine
DX: R42 Dizziness and giddiness (principal); N39.0 Urinary tract infection, site not specified; R55 Syncope and collapse; E86.0 Dehydration; Z86.73 Personal history of transient ischemic attack (TIA), and cerebral infarction without residual deficits; F41.9 Anxiety disorder, unspecified; I10 Essential (primary) hypertension; J45.909 Unspecified asthma, uncomplicated; Z79.899 Other long term (current) drug therapy; Z88.0 Allergy status to penicillin; Z88.1 Allergy status to other antibiotic agents; Z87.891 Personal history of nicotine dependence; R00.1 Bradycardia, unspecified
CPT/HCPCS: 36415; 70450; 70496; 70498; 70551; 71046; 80048; 80053; 80061; 80307; 80320; 80329; 81003; 81015; 82550; 83036; 83605; 83735; 83880; 84443; 84484; 85025; 85610; 86140; 93005; 96365; 96367; 96375; 99284; A9270-GY; G0378; G0480; J0696; J0744; J2270; J2405; Q9967

== ENCOUNTER 2017-10-10 21:32 | Emergency (ER) | payer OTHER ==
[2017-10-10] MEDS ORDERED: HYDROmorphone INJ* 2 MG/ML CARPUJECT SYRINGE IV SLOW PU ONE (22:12)
[2017-10-10] MEDS ORDERED: Metoclopramide IV* 5 MG/ML 2 ML VIAL IV SLOW PU ONE (22:16)
[2017-10-10 22:35] LABS: ABS Basophils 0.1 10^3/ul (0-0.2); ABS Eosinophils 0.4 10^3/ul (0-0.6); ABS Lymphocytes 4.3 10^3/ul (1.0-4.8); ABS Monocytes 1.3 10^3/ul (0-0.8); ABS Neutrophils 7.2 10^3/ul (1.5-7.7); ABS Nucleated RBC 0 10^3/ul; Eosinophil % 2.9 % (0-6); Hematocrit 44 % (42-52); Hemoglobin 14.4 g/dl (14.0-18.0); Lymphocyte % 32.3 % (25-47); Mean Corpuscular HGB Conc 33 g/dl (31-36); Mean Corpuscular Hemoglobin 27 pg (27-31); Mean Corpuscular Volume 83 fL (80-94); Mean Platelet Volume 6.8 um3 (7.4-10.4); Nucleated Red Blood Cells % 0; Platelet Count 282 10^3/ul (150-450); Red Blood Count 5.28 10^6/ul (4.0-5.4); Red Cell Distribution Width 14 % (10.5-15); White Blood Count 13.2 10^3/ul (3.5-10.8)
[2017-10-10 22:43] LABS: INR 0.98 (0.77-1.02)
[2017-10-10] MEDS ORDERED: LORazepam INJ* 2 MG/ML 1 ML VIAL ONE (22:45)
[2017-10-10] MEDS ORDERED: LORazepam INJ* 2 MG/ML 1 ML VIAL IV PUSH ONE (22:45)
[2017-10-10] MEDS ORDERED: Iohexol 350* (CONTRAST) 500 ML MDV IV ONE (23:03)
[2017-10-10] MEDS ORDERED: Labetalol IV* 5 MG/ML 20 ML VIAL ONE (23:15)
[2017-10-10] MEDS ORDERED: fentaNYL* 50 MCG/ML 2 ML VIAL (100 MCG VIAL) ONE (23:15)
[2017-10-10] MEDS ORDERED: Labetalol IV* 5 MG/ML 20 ML VIAL IV PUSH ONE (23:16)
[2017-10-10] MEDS ORDERED: fentaNYL* 50 MCG/ML 2 ML VIAL (100 MCG VIAL) IV SLOW PU ONE (23:16)
[2017-10-10] MEDS ORDERED: niCARdipine 0.1MG/ML IVPREMIX* 20 MG/200 ML BAG IV ONE (23:41)
--- NOTE | 2017-10-11 00:28 | ED ---
Ayanna Lee Emily, scribed for Anali Giles MD on 10/10/17 at 2217 . HPI Chest Pain - HPI Summary HPI Summary: This patient is a 57 year old M presenting to [facility] with a chief complaint of L- sided chest pain radiating to mid back that began at 2130 today. The patient rates the pain 9/10 in severity. Symptoms aggravated by nothing. Symptoms alleviated by nothing. Patient reports diaphoresis, muscle spasms, SOB, vomiting (once), and epigastric abd pain. - History of Current Complaint Chief Complaint: EDChestPainROMI Time Seen by Provider: 10/10/17 22:07 Hx Obtained From: Patient Onset/Duration: Started Minutes Ago, Still Present Timing: Constant, Lasting Minutes Initial Severity: Severe Current Severity: Severe Pain Intensity: 9 Pain Scale Used: 0-10 Numeric Chest Pain Location: Left Lateral Chest Pain Radiates: Yes Chest Pain Radiates To:: Back Character: Other: - Spasm Aggravating Factor(s): Nothing Alleviating Factor(s): Nothing Associated Signs and Symptoms: Positive: Other: - Positive diaphoresis, muscle spasms, SOB, vomiting (once), and epigastric abd pain - Additional Pertinent History Primary Care Physician: KANDY - Allergy/Home Medications Allergies/Adverse Reactions: Allergies Allergy/AdvReac Type Severity Reaction Status Date / Time Adhesive Tape Allergy BURNING, Verified 10/10/17 21:41 IRRITATION TO SKIN clindamycin Allergy Diarrhea Verified 10/10/17 21:41 Penicillins Allergy Unknown Verified 10/10/17 21:41 Reaction Details BEE STING Allergy Anaphylatic Uncoded 10/10/17 21:41 Shock PMH/Surg Hx/FS Hx/Imm Hx Previously Healthy: No Endocrine/Hematology History: Reports: Hx Diabetes - HX OF BEFORE WEIGHT LOSS Cardiovascular History: Reports: Hx Hypertension - HX OF, BUT NO MEDICATION Denies: Hx Congestive Heart Failure Respiratory History: Reports: Hx Asthma - USES INHALER, Hx Chronic Bronchitis, Hx Chronic Obstructive Pulmonary Disease (COPD), Hx Pneumonia, Hx Sleep Apnea - HX OF GI History: Reports: Hx Gastroesophageal Reflux Disease - ACID REFLUX - NO MEDS , Other GI Disorders - gastric bypass surgery, 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 History: Denies: Hx Renal Disease Sensory History: Reports: Hx Contacts or Glasses - GLASSES Denies: Hx Hearing Aid Opthamlomology History: Reports: Hx Contacts or Glasses - GLASSES Neurological History: Reports: Hx Headaches - CLUSTER HEADACHES, Hx Migraine - EVERY 2 WEEKS - Surgical History Surgery Procedure, Year, and Place: 2010 LAPAROSCOPIC GASTRIC BYPASS- [facility] [place] 2011 LAPAROSCOPIC REDUCTION AND REPAIR INTERNAL HERNIA, [facility] [place] Hx Anesthesia Reactions: No Infectious Disease History: No Infectious Disease History: Denies: Traveled Outside the [place] in Last 30 Days - Family History Known Family History: Positive: Cardiac Disease - Father: MA Family History: Father: stroke. Sister: liver and stomach CA - Social History Occupation: Employed Full-time Lives: Alone Alcohol Use: Rare Alcohol Amount: 2xmonth Substance Use Type: Reports: None Smoking Status (MU): Former Smoker Type: Cigarettes Amount Used/How Often: 1PPD Have You Smoked in the Last Year: No Review of Systems Positive: Chest Pain Positive: Shortness Of Breath Positive: Abdominal Pain, Vomiting Positive: Other - Positive muscle spasms Positive: Other - Positive diaphoresis All Other Systems Reviewed And Are Negative: Yes Physical Exam - Summary Physical Exam Summary: VITAL SIGNS: Reviewed. GENERAL: ~Patient is a well-developed and nourished male. Pt seems very anxious screaming, doesnt want to stay still in stretcher. Patient is not in any acute respiratory distress. HEAD AND FACE: No signs of trauma. No ecchymosis, hematomas or skull depressions. No sinus tenderness. EYES: PERRLA, EOMI x 2, No injected conjunctiva, no nystagmus. EARS: Hearing grossly intact. Ear canals and tympanic membranes are within normal limits. MOUTH: Oropharynx within normal limits. NECK: Supple, trachea is midline, no adenopathy, no JVD, no carotid bruit, no c- spine tenderness, neck with full ROM. CHEST: Symmetric, no tenderness at palpation LUNGS: Clear to auscultation bilaterally. No wheezing or crackles. CVS: Regular rate and rhythm, S1 and S2 present, no murmurs or gallops appreciated. ABDOMEN: Soft. Diffusely tender. No signs of distention. No rebound no guarding , and no masses palpated. Bowel sounds are normal. EXTREMITIES: FROM in all major joints, no edema, no cyanosis or clubbing. NEURO: Alert and oriented x 3. No acute neurological deficits. Speech is normal and follows commands. SKIN: Diaphoretic Triage Information Reviewed: Yes Vital Signs On Initial Exam: Initial Vitals Temp Pulse Resp BP Pulse Ox 98.5 F 60 20 145/78 100 10/10/17 21:39 10/10/17 21:39 10/10/17 21:39 10/10/17 21:39 10/10/17 21:39 Vital Signs Reviewed: Yes Diagnostics - Vital Signs Vital Signs Temp Pulse Resp BP Pulse Ox 10/10/17 21:39 98.5 F 60 20 145/78 100 - Laboratory Result Diagrams: 10/10/17 22:18 10/10/17 22:18 Lab Statement: Any lab studies that have been ordered have been reviewed, and results considered in the medical decision making process. - Radiology CXR Radiology Interpretation Completed By: ED Physician - CXR reveals, per ED physician, no acute cardiopulmonary disease. - CT CTA Chest/Abdomen/Pelvis CT Interpretation Completed By: Radiologist - Dissection extending through the proximal left common iliac artery and minimally involving the celiac axis and origin of the right renal artery. 4.3 cm ascending aortic aneurysm. ED physician has reviewed this radiology report. - EKG 2126 Cardiac Rate: NL EKG Rhythm: Sinus Rhythm - 68 BPM EKG Interpretation: Nml axis. Nml intervals. No ischemic changes Re-Evaluation - Re-Evaluation First Eval Re-Evaluation Time: 23:30 Change: Unchanged Comment: Discussed results with pt Second Eval Re-Evaluation Time: 23:47 Change: Unchanged Comment: Discussed plan of care with patient Chest Pain Course/Dx - Course Course Of Treatment: 57 year old male. He has no past medical history, came to the ER with CP and back pain that began 30 minutes [employer]. Anxious and moderate distress because of pain. Thrashing in the stretcher. EKG was unremarkable. Sent to CT, CT showed patient has an aortic dissection type B. Pt accepted to CCU at [facility] by Dr. Alvarez (shelver). Patient's blood pressure is improving with labetalol Cardene. Patient's appearance is improving. - Diagnoses Provider Diagnoses: Dissecting aneurysm of thoracic aorta, Beverly type B - Provider Notifications Instructed by Provider To: Other - Consult with Dr. Alvarez (shelver at [facility]) at [phone]. He accepts the pt to the CCU at [facility]. - Critical Care Time Critical Care Time: 30-74 min - 50 minutes Discharge - Sign-Out/Discharge Documenting (check all that apply): Discharge/Admit/Transfer - Transfer - Discharge Plan Condition: Stable Disposition: TRANS HIGHER LVL OF CARE FAC Referrals: Sonia Han MD [Primary Care Provider] - The documentation as recorded by the Ayanna ariza Emily accurately reflects the service I personally performed and the decisions made by me, Anali Giles MD.
[2017-10-11 01:29] VITALS: BP 119/54
--- NOTE | 2017-10-11 07:19 | RAD ---
INDICATION: Chest pain. COMPARISON: Comparison is made with a prior study from July 22, 2017. TECHNIQUE: A portable view of the chest was obtained. FINDINGS: The heart is within normal limits in size. The lungs are underinflated. There are small nodular densities which project bilaterally at the level of the lung bases most consistent with nipple shadows. The lungs are otherwise clear. No pleural effusion or pneumothorax is seen. IMPRESSION: NO EVIDENCE FOR ACUTE DISEASE.
--- NOTE | 2017-10-11 09:59 | RAD ---
Indication: Left chest wall pain and back pain. CTA of the chest was performed after IV contrast administration. Coronal and sagittal reconstructed images were obtained. Contrast: Administered 99.0 ml of OMNIPAQUE 350 mg/ml CTA of the chest, abdomen and pelvis was performed after IV contrast administration. Coronal and sagittal reconstructed images were obtained. There is a descending aortic dissection which originates distal to the origin of the left subclavian artery. The dissection extends into the descending thoracic aorta, abdominal aorta to the left common iliac arteries. There is minimal dissection involving the origin of the celiac axis. There may be minimal involvement of the left renal artery at its origin; however, the left kidney appears to be well perfused. SMA appears to originate from the true lumen. There is mild ectasia of the ascending aorta measuring up to 4.3 cm. The trachea and major bronchi appear patent. The lung bryan demonstrate no pleural fluid, nodules or masses. Heart is of normal size without evidence of pericardial effusion. The liver and spleen are normal in size. Pancreas demonstrates no mass or pancreatic duct dilatation. Gallbladder demonstrates no calcified gallstones. No adrenal masses are noted. The kidneys demonstrate no hydronephrosis. They demonstrate symmetric enhancement. Normal excretion is noted. There is a low density lesion in the lower pole of the right kidney consistent with a cyst measuring 10 mm. No retroperitoneal lymphadenopathy is noted. No dilated loops of bowel are noted. No hernias are noted. The urinary bladder is unremarkable. IMPRESSION: No pericardial effusion is noted. There is a descending aortic dissection noted. This extends from just distal to the left subclavian artery origin to the left common iliac artery. There is minimal involvement of the dissection extending into the celiac axis. Superior mesenteric artery is patent. Left renal artery appears to originate from the true lumen; however, there may be minimal involvement of the dissection into the left renal artery origin. Normal nephrogram of the left kidney is noted.
== END 2017-10-11 01:37 | disposition short-term general hospital (02) ==
LOC: ED 21:32
DX: I71.01 Dissection of thoracic aorta (principal); Z87.891 Personal history of nicotine dependence; Z88.3 Allergy status to other anti-infective agents; Z88.0 Allergy status to penicillin
CPT/HCPCS: 36415; 71045; 71275; 74174; 80053; 82150; 82550; 83605; 83690; 83735; 83880; 84484; 85025; 85610; 85730; 86140; 93005; 96374; 96375; 99285; J1170; J2060; J2765; J3010; Q9967

== ENCOUNTER 2017-10-19 08:07 | Emergency (ER) | payer OTHER ==
[2017-10-19] MEDS ORDERED: NS 0.9% 1000 ML* 1,000 ML IV ONE (08:28)
[2017-10-19] MEDS ORDERED: Iodixanol* (CONTRAST) 320 MG/ML 100 ML SDV IV ONE (08:37)
[2017-10-19] MEDS ORDERED: NS 0.9% 1000 ML* 1,000 ML IV SCH (08:45)
[2017-10-19 08:53] LABS: ABS Basophils 0.1 10^3/ul (0-0.2); ABS Eosinophils 0.4 10^3/ul (0-0.6); ABS Lymphocytes 1.4 10^3/ul (1.0-4.8); ABS Neutrophils 7.9 10^3/ul (1.5-7.7); ABS Nucleated RBC 0 10^3/ul; Eosinophil % 3.8 % (0-6); Hematocrit 38 % (42-52); Hemoglobin 12.9 g/dl (14.0-18.0); Lymphocyte % 12.7 % (25-47); Mean Corpuscular HGB Conc 34 g/dl (31-36); Mean Corpuscular Hemoglobin 28 pg (27-31); Mean Corpuscular Volume 82 fL (80-94); Mean Platelet Volume 7.4 um3 (7.4-10.4); Nucleated Red Blood Cells % 0; Platelet Count 300 10^3/ul (150-450); Red Blood Count 4.63 10^6/ul (4.0-5.4); Red Cell Distribution Width 15 % (10.5-15); White Blood Count 10.7 10^3/ul (3.5-10.8)
[2017-10-19 09:01] LABS: INR 1.13 (0.77-1.02)
--- NOTE | 2017-10-19 09:16 | RAD ---
HISTORY: Aortic dissection, chest pain COMPARISONS: October 10, 2017 TECHNIQUE: Multiple contiguous axial CT scans were obtained of the chest, abdomen, and pelvis after the administration of intravenous contrast. Coronal and sagittal multiplanar reformations are submitted for review.. Oral contrast was not administered. 3-D volumetric reconstructions of the aorta are also submitted for review. FINDINGS: CHEST NECK AND THYROID: The lower neck and thyroid are unremarkable. CHEST WALL: There is no lower cervical, axillary, or supraclavicular lymphadenopathy by size criteria. HEART AND PERICARDIUM: The heart is unremarkable. AORTA AND PULMONARY VASCULATURE: Again noted is a dissection of the thoracic aorta extending from the junction of the arch and descending thoracic aorta, distal to the origin of the left subclavian artery, extending into the abdominal aorta. The cephalic great vessels originate proximal to the dissection. There has been partial thrombosis of the false lumen at the level of the arch compared to the previous examination. The pulmonary vasculature is normal for technique. MEDIASTINUM: There is no mediastinal lymphadenopathy by size criteria. TRINA: There is no hilar lymphadenopathy by size criteria. AIRWAY AND ESOPHAGUS: The airway is unremarkable, without endobronchial filling defect. The esophagus is grossly normal. LUNG PARENCHYMA: There is minimal compressive atelectasis of the left lower lobe. PLEURA: No pleural abnormalities are noted. BONES AND SOFT TISSUES: No bone or soft tissue abnormalities are noted. ABDOMEN/PELVIS: LIVER: The liver is normal in shape, size, contour, and attenuation. BILE DUCTS: There is no intrahepatic or extrahepatic biliary dilatation. GALLBLADDER: The gallbladder is normal, without pericholecystic inflammatory change. PANCREAS: The pancreas is normal, without mass or ductal dilatation. SPLEEN: Normal in size and appearance. UPPER GI TRACT: Evaluation of the gastrointestinal tract is limited by incomplete gastric distention. There is a small sliding hiatal hernia. There is postsurgical change to the upper GI tract. SMALL BOWEL & MESENTERY: There is postsurgical change to the small bowel. There is no obstruction. COLON: The colon is normal in contour, course, caliber. There is no pericolonic inflammatory change. ADRENALS: Normal bilaterally. KIDNEYS: There is asymmetric hypoperfusion of the left kidney compared to the right BLADDER: The bladder is smooth in contour. PELVIC ORGANS: The prostate gland is normal. The seminal vesicles are symmetric. AORTA: As noted above, there is an aortic dissection extending from the descending thoracic aorta. The celiac trunk originates from the true lumen. There is a small dissection flap extending into the celiac trunk. The superior mesenteric artery originates from the true lumen. The renal arteries originate from the true lumen bilaterally. The inferior mesenteric artery originates from the false lumen. The dissection extends into the left common iliac artery. IVC: Unremarkable LYMPH NODES: There is no lymphadenopathy by size criteria. ABDOMINAL WALL: There is no evidence for abdominal wall hernia. BONES AND SOFT TISSUES: There are bilateral pars defects at L5 with trace anterolisthesis of L5 on S1. Mild diffuse degenerative changes are noted. OTHER: None IMPRESSION: AGAIN NOTED IS AN AORTIC DISSECTION THAT ORIGINATES DISTAL TO THE CEPHALIC GREAT VESSELS (BRUCE TYPE B), INFERIORLY INTO THE LEFT COMMON ILIAC ARTERY. THE DISSECTION FLAP EXTENDS INTO THE CELIAC TRUNK. THERE IS RELATIVE HYPOPERFUSION OF THE LEFT KIDNEY COMPARED TO THE RIGHT. WHEN COMPARED TO OCTOBER 10, 2012, THERE HAS BEEN INTERVAL PARTIAL THROMBOSIS OF THE FALSE LUMEN AT THE LEVEL OF THE ARCH. 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
--- NOTE | 2017-10-19 09:56 | ED ---
HPI Chest Pain - HPI Summary HPI Summary: Patient presents to the emergency department this morning with left-sided chest pain that started around 6 AM. He denies associated diaphoresis, shortness of breath, nausea however he reports this is different chest pain that he had on Tuesday when he presented to the ED and was diagnosed with an aortic dissection, Acton type B. He continues to have sullivan and belly pain he's been having from day of onset. From that visit, he was transferred to [facility] in [place] and discharged on albuterol, amlodipine, aspirin 81 mg, carvedilol 25 mg twice a day, cetirizine, [place] vitamins, oxycodone, simethicone, Flomax, vybrid. He's been taking his meds as directed. He was advised to follow up outpatient with vascular surgeon here in [facility] however with his new onset of chest pain, wanted to be seen. Went to and was directed here. - History of Current Complaint Chief Complaint: EDChestPainROMI Time Seen by Provider: 10/19/17 08:43 Hx Obtained From: Patient Pain Intensity: 6 - Additional Pertinent History Primary Care Physician: KANDY - Allergy/Home Medications Allergies/Adverse Reactions: Allergies Allergy/AdvReac Type Severity Reaction Status Date / Time Adhesive Tape Allergy BURNING, Verified 10/10/17 21:41 IRRITATION TO SKIN clindamycin Allergy Diarrhea Verified 10/10/17 21:41 Penicillins Allergy Unknown Verified 10/10/17 21:41 Reaction Details BEE STING Allergy Anaphylatic Uncoded 10/10/17 21:41 Shock Home Medications: Home Medications Aspirin 81 mg CHEW TAB* 81 mg PO BID 10/19/17 [History Confirmed 10/19/17] Carvedilol TAB* [Coreg TAB*] 25 mg PO BID 10/19/17 [History Confirmed 10/19/17] Cetirizine* [ZyrTEC 10 MG TAB*] 10 mg PO DAILY 10/19/17 [History Confirmed 10/19] Tamsulosin CAP* [Flomax CAP*] 0.4 mg PO DAILY 10/19/17 [History Confirmed ] amLODIPine TAB* [Norvasc 5 mg TAB*] 10 mg PO DAILY 10/19/17 [History Confirmed 10/19/17] oxyCODONE TAB* [Roxycodone TAB 5 mg*] 5 mg PO Q4H PRN 10/19/17 [History Confirmed 10/19/17] PMH/Surg Hx/FS Hx/Imm Hx Previously Healthy: No - Aortic dissection, Chaz Type B, bariatric status Endocrine/Hematology History: Reports: Hx Diabetes - HX OF BEFORE WEIGHT LOSS Cardiovascular History: Reports: Hx Hypertension - was not on meds prior to Denies: Hx Congestive Heart Failure Respiratory History: Reports: Hx Asthma - USES INHALER, Hx Chronic Bronchitis, Hx Chronic Obstructive Pulmonary Disease (COPD), Hx Pneumonia, Hx Sleep Apnea - HX OF GI History: Reports: Hx Gastroesophageal Reflux Disease - ACID REFLUX, Other GI Disorders - gastric bypass surgery, 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 History: Denies: Hx Renal Disease Sensory History: Reports: Hx Contacts or Glasses - GLASSES Denies: Hx Hearing Aid Opthamlomology History: Reports: Hx Contacts or Glasses - GLASSES Neurological History: Reports: Hx Headaches - CLUSTER HEADACHES, Hx Migraine - EVERY 2 WEEKS - Surgical History Surgery Procedure, Year, and Place: 2010 LAPAROSCOPIC GASTRIC BYPASS- [facility] , [facility] [place] [facility] [place]. 2011 LAPAROSCOPIC REDUCTION AND REPAIR INTERNAL HERNIA, [facility] [place] Hx Anesthesia Reactions: No Infectious Disease History: No Infectious Disease History: Denies: Traveled Outside the [place] in Last 30 Days - Family History Known Family History: Positive: Cardiac Disease - Father: [place] Family History: Father: stroke. Sister: liver and stomach CA - Social History Alcohol Use: Rare Alcohol Amount: 2xmonth Hx Substance Use: No Substance Use Type: Reports: None Hx Tobacco Use: Yes - not currently Smoking Status (MU): Former Smoker Type: Cigarettes Amount Used/How Often: 1PPD Have You Smoked in the Last Year: No Review of Systems Positive: Fatigue - generalized. Negative: Fever, Chills Eyes: Negative ENT: Negative Positive: Chest Pain Negative: Shortness Of Breath, Cough Positive: Abdominal Pain Genitourinary: Negative Musculoskeletal: Negative Skin: Negative Neurological: Negative Psychological: Normal All Other Systems Reviewed And Are Negative: Yes Physical Exam Triage Information Reviewed: Yes Vital Signs On Initial Exam: Initial Vitals Temp Pulse Resp BP Pulse Ox 97.4 F 48 18 96/56 94 10/19/17 08:11 10/19/17 08:11 10/19/17 08:11 10/19/17 08:11 10/19/17 08:11 Vital Signs Reviewed: Yes Appearance: Positive: Ill-Appearing - generalized pallor, fatigued but speaking w/ normal volume, pace and tone Skin: Positive: Warm, Skin Color Reflects Adequate Perfusion, Dry Head/Face: Positive: Normal Head/Face Inspection Eyes: Positive: Normal, EOMI, FLAVIA, Conjunctiva Clear ENT: Positive: Normal ENT inspection, Hearing grossly normal, Pharynx normal Neck: Positive: Supple Respiratory/Lung Sounds: Positive: Clear to Auscultation, Breath Sounds Present Cardiovascular: Positive: Pulses are Symmetrical in both Upper and Lower Extremities, S1, S2. Negative: Leg Edema Left, Leg Edema Right Abdomen Description: Positive: Soft, Other: - TTP over Rt mid abdomen. Negative : Pulsatile Mass Bowel Sounds: Positive: Present Musculoskeletal: Positive: Normal, Strength/ROM Intact Neurological: Positive: Normal, Sensory/Motor Intact, Alert, Oriented to Person Place, Time, CN Intact II-III Psychiatric: Positive: Normal - pleasant, calm, cooperative Diagnostics - Vital Signs Vital Signs Temp Pulse Resp BP Pulse Ox 10/19/17 09:02 50 12 98 10/19/17 08:41 48 17 115/67 98 10/19/17 08:22 46 96 10/19/17 08:11 97.4 F 48 18 96/56 94 - Laboratory Lab Results: Lab Results 10/19/17 10/19/17 10/19/17 Range/Units 08:36 08:36 08:36 WBC 10.7 (3.5-10.8) 10^3/ul RBC 4.63 (4.0-5.4) 10^6/ul Hgb 12.9 L (14.0-18.0) g/dl Hct 38 L (42-52) % MCV 82 (80-94) fL MCH 28 (27-31) pg MCHC 34 (31-36) g/dl RDW 15 (10.5-15) % Plt Count 300 (150-450) 10^3/ul MPV 7.4 (7.4-10.4) um3 Neut % (Auto) 73.6 (38-83) % Lymph % (Auto) 12.7 L (25-47) % [place] % (Auto) 9.3 H (0-7) % Eos % (Auto) 3.8 (0-6) % Baso % (Auto) 0.6 (0-2) % Absolute Neuts (auto) 7.9 H (1.5-7.7) 10^3/ul Absolute Lymphs (auto) 1.4 (1.0-4.8) 10^3/ul Absolute Monos (auto) 1.0 H (0-0.8) 10^3/ul Absolute Eos (auto) 0.4 (0-0.6) 10^3/ul Absolute Basos (auto) 0.1 (0-0.2) 10^3/ul Absolute Nucleated RBC 0 10^3/ul Nucleated RBC % 0 INR (Anticoag Therapy) 1.13 H (0.77-1.02) APTT 37.4 H (26.0-36.3) seconds Sodium 129 L (139-145) mmol/L Potassium 3.6 (3.5-5.0) mmol/L Chloride 98 L (101-111) mmol/L Carbon Dioxide 23 (22-32) mmol/L Anion Gap 8 (2-11) mmol/L BUN 18 (6-24) mg/dL Creatinine 0.80 (0.67-1.17) mg/dL Est GFR ( Amer) 128.6 (>60) Est GFR (Non-Af Amer) 100.0 (>60) BUN/Creatinine Ratio 22.5 H (8-20) Glucose 124 H (70-100) mg/dL Lactic Acid (0.5-2.0) mmol/L Calcium 8.5 L (8.6-10.3) mg/dL Total Bilirubin 0.70 (0.2-1.0) mg/dL AST 13 (13-39) U/L ALT 10 (7-52) U/L Alkaline Phosphatase 73 (34-104) U/L Troponin I 0.00 (<0.04) ng/mL Total Protein 6.8 (6.4-8.9) g/dL Albumin 3.3 (3.2-5.2) g/dL Globulin 3.5 (2-4) g/dL Albumin/Globulin Ratio 0.9 L (1-3) Blood Type Antibody Screen 10/19/17 10/19/17 Range/Units 08:36 08:36 WBC (3.5-10.8) 10^3/ul RBC (4.0-5.4) 10^6/ul Hgb (14.0-18.0) g/dl Hct (42-52) % MCV (80-94) fL MCH (27-31) pg MCHC (31-36) g/dl RDW (10.5-15) % Plt Count (150-450) 10^3/ul MPV (7.4-10.4) um3 Neut % (Auto) (38-83) % Lymph % (Auto) (25-47) % [place] % (Auto) (0-7) % Eos % (Auto) (0-6) % Baso % (Auto) (0-2) % Absolute Neuts (auto) (1.5-7.7) 10^3/ul Absolute Lymphs (auto) (1.0-4.8) 10^3/ul Absolute Monos (auto) (0-0.8) 10^3/ul Absolute Eos (auto) (0-0.6) 10^3/ul Absolute Basos (auto) (0-0.2) 10^3/ul Absolute Nucleated RBC 10^3/ul Nucleated RBC % INR (Anticoag Therapy) (0.77-1.02) APTT (26.0-36.3) seconds Sodium (139-145) mmol/L Potassium (3.5-5.0) mmol/L Chloride (101-111) mmol/L Carbon Dioxide (22-32) mmol/L Anion Gap (2-11) mmol/L BUN (6-24) mg/dL Creatinine (0.67-1.17) mg/dL Est GFR ( Amer) (>60) Est GFR (Non-Af Amer) (>60) BUN/Creatinine Ratio (8-20) Glucose (70-100) mg/dL Lactic Acid 0.7 (0.5-2.0) mmol/L Calcium (8.6-10.3) mg/dL Total Bilirubin (0.2-1.0) mg/dL AST (13-39) U/L ALT (7-52) U/L Alkaline Phosphatase (34-104) U/L Troponin I (<0.04) ng/mL Total Protein (6.4-8.9) g/dL Albumin (3.2-5.2) g/dL Globulin (2-4) g/dL Albumin/Globulin Ratio (1-3) Blood Type A Negative Antibody Screen Negative Result Diagrams: 10/19/17 08:36 10/19/17 08:36 Lab Statement: Any lab studies that have been ordered have been reviewed, and results considered in the medical decision making process. Chest Pain Course/Dx - Course Course Of Treatment: Patient with a Chaz type B aortic dissection presents as a return patient to our ED with new onset chest pain. He was diagnosed with this aortic dissection on Tuesday here in the ED and transferred to [facility]. He was recently discharged with medications including a beta deejay. He presents here today because of his different, new left-sided chest pain. He continues to have back and ab pain he had on Tuesday. His EKG reveals bradycardia otherwise no acute changes and 1st troponin is WNL. His labs show mild decrease of H&H from last visit. His CTA reveals "again noted is an aortic dissection that originates distal to the cephalic great vessels ( Acton type B) , inferiorly into the left common iliac artery. Dissection flap extends into the ciliary trunk. There is relative hypoperfusion of the left kidney compared to the right (discussed with Dr. Kilgore, radiologist, today who cannot state if this is old or new compared to previous CT from Tuesday as he reports 'the timing of the dye was different then'). When compared to October 10, 2012, there has been interval partial thrombosis of the false lumen at the level of the arch. Spondylolysis with trace retrolisthesis at L5-S1". Discussed with Dr. Roberto, on-call vascular surgeon at [facility], who offers to take the patient as a transfer through the ED to better assess and observe hypoperfusion found to the left kidney as well as complete Lt chest pain investigation. Pt's BUN and creatinine are within normal limits at this time. He has urinated. However with a low pressure and low heart rate, it is difficult to say what could be causing this, especially since he's on a beta deejay. Discussed options with the patient who agrees to transfers. Stable at times of transition of care. Accepting physician is Dr. Oneill at [facility]. - Diagnoses Provider Diagnoses: Dissecting aneurysm of thoracic aorta, Acton type B, Chest pain, Unspecified injury of left renal artery, initial encounter Discharge - Sign-Out/Discharge Documenting (check all that apply): Discharge/Admit/Transfer - Discharge Plan Condition: Stable Disposition: TRANS HIGHER LVL OF CARE FAC - Billing Disposition and Condition Condition: STABLE Disposition: Trans Higher Lvl of Care Fac
[2017-10-19] MEDS ORDERED: oxyCODONE TAB* 5 MG TAB PO ONE (10:24)
[2017-10-19 13:52] VITALS: BP 134/76
== END 2017-10-19 13:50 | disposition short-term general hospital (02) ==
LOC: ED 08:07
DX: I71.01 Dissection of thoracic aorta (principal); S35.402A Unspecified injury of left renal artery, initial encounter; R07.89 Other chest pain; R10.9 Unspecified abdominal pain; Z86.79 Personal history of other diseases of the circulatory system; Z87.891 Personal history of nicotine dependence; X58.XXXA Exposure to other specified factors, initial encounter; Y92.9 Unspecified place or not applicable
CPT/HCPCS: 36415; 71275; 74174; 80053; 83605; 84484; 85025; 85610; 85730; 86850; 86900; 86901; 93005; 99283; A9270-GY; Q9967

== ENCOUNTER 2018-01-14 13:01 | Emergency (ER) | payer OTHER ==
--- OUTSIDE RECORDS SUMMARY | 2018-01-14 13:12 | XMS REPORT ---
:1960 External Reference #:[id number] Author Organization [facility] Address [address] [place] [address] Phone [phone] Care Team Providers Name Role Phone Roni Yoo MD Care Team Information Side Trimmer Unavailable Roni Yoo MD Primary Care Physician Unavailable Payers Type Date Identification Numbers Payment Provider Subscriber Health Maintenance Effective: Policy Number: [place] Tali Howard Organization (O) 05/16/2012 [id number] [facility] Group Number: [id number] [id number] Group Name: [facility] [place] [address] PayID: [id number] Problems Date Description Provider Status Onset: 06/03/2006 Benign essential hypertension Zay Candelario M.D. Active Onset: 06/03/2006 Asthma without status asthmaticus Zay Candelario M.D. Active Onset: 11/28/2008 Obesity Mack Mejía M.D. Active Onset: 01/06/2012 FH: Cardiovascular disease Mack Mejía M.D. Active Onset: 04/08/2009 Type 2 diabetes mellitus Mack Mejía M.D. Active Onset: 02/03/2012 Anxiety state Mack Mejía M.D. Active Onset: 07/26/2017 Ischemic stroke Sonia Han M.D. Active Onset: 10/11/2017 Dissection of thoracic aorta Sonia Han M.D. Active Onset: 02/15/2011 Allergic urticaria Roni Solomon M.D. Resolved Resolved: 03/24/2016 Onset: 12/31/2011 Acute pharyngitis Roni Solomon M.D. Resolved Resolved: 03/24/2016 Onset: 05/23/2012 Acute bronchitis Zay Candelario M.D. Resolved Resolved: 03/24/2016 Onset: 05/23/2012 Acute sinusitis Zay Candelario M.D. Resolved Resolved: 03/24/2016 Family History Date Family Member(s) Problem(s) Comments General No early myocardial infarction or cerebrovascular accident, nothing less than age 61Also cousin with aortic aneurysm - fatal age 38 Father NM age 68 Father due to Liver Cancer () Father due to Kidney Disease () Mother Aneurysm Brain Mother due to Aneurysm () - Brain First Brother Anuerysm Aortic First Sister Aortic Aneurysm Paternal Uncles Aortic Dissection Social History Type Date Description Comments Cigarette Use Former Cigarette Smoker quit 1995 ETOH Use Occasional wine Smoking Patient is a former smoker Daily Caffeine occ tea Exercise Type/Frequency Current Does not exercise Allergies, Adverse Reactions, Alerts Date Description Reaction Status Severity Comments 10/28/1997 Penicillin active 07/02/2009 Clindamycin active Severe Acid Reflux 03/19/2010 Bee Sting active Medications Medication Date Status Form Strength Qnty SIG Indications Ordering Provider Azithromycin 01/10 Hx Tablets 250mg 6tabs 2 by Linda mouth [place], - every Afnp-C 01/15 day x1 then 1 by mouth every day x 4 more days Viibryd 12/14 Active Tablets 20mg 60tabs one po F41.1 bid MD Fredo Pepcid 11/07 Active Tablets 40mg 60tabs by mouth . twice a matt Yoo MD Srinivasa Contour 03/24 Active Strips 100unit test Roni Link Blood Glucose /2015 s blood Vikas Yoo Strips glucose once a week - Dx: E11.9 - last seen 12/14/17 Proair HFA 04/02 Active Aerosol 108(90Bas 1units 2 puffs J45.20 Roni Fariba /2014 e) every 4 luiz Yoo/Act hours as needed Albuterol 08/08 Active Nebulizer (2.5mg/3M 20Bulle dispense Roni Link Sulfate /2012 L) 0.083% ts 1 bullet adela Yoo MD nebulize r, inhale twice a day, or up to 4 times daily if needed Flinstones Active 1 po bid Unknown Multivitamin / Aspir-Low Active Tablets DR 81mg 1 by Unknown /0000 mouth every day Carvedilol Active Tablets 25mg one po Unknown /0000 bid Hydrochlorothiaz Active Tablets 25mg one by Unknown hermes /0000 mouth qam. Amlodipine Active Tablets 10mg 1 by Unknown Besylate /0000 mouth every day Bactrim DS 12/14 Hx Tablets 800-160mg 14tabs twice a N39.0 Roni Galloway. day Fredo, - 01/02 Lisinopril 11/25 Hx Tablets 10mg 90tabs 1 by Roni Link mouth Fredo, - every MD Viibryd 03/24 Hx Tablets 40mg 90tabs Take One F41.1 Tablet Guille, - By Mouth M.D. 12/14 Day Doxycycline 02/03 Hx Tablets 100mg 20tabs 1 twice R68.84 Celia Hyclate /2015 a day x Lewis, - 10 days Afnp-C 02/13 Physical Therapy 08/14 Hx evaluate S46.911A and [facility] Alatorre - treat Rt 12/01 pain Tramadol HCL 08/14 Hx Tablets 50mg 120tabs 1 - 2 S46.911A tablets AMI Alatorre - by mouth 12/01 4 x a day as needed for pain Medrol (Merritt) 08/14 Hx Tablets 4mg 21tabs take as S46.911A directed AMI Alatorre - 08/21 Viibryd 04/02 Hx Tablets 20mg 90tabs 1 by F41.1 mouth Guille, - every M.D. Ketoconazole 02/26 Hx Cream 2% 60units apply to B35.4 Raz De La Rosa, affected M.D. - area 12/01 day Return To Work 02/26 Hx Pt september B34.9 Raz De La Rosa, return M.D. - to work 08/1402/27/15 . no restrict ions Fluticasone 07/22 Hx Suspension 50mcg/Act 1units use two J02.0 Gabriela Propionate sprays Giselle, - in each [employer] 12/02 nostril daily, as needed Prednisone 05/30 Hx Tablets 10mg 19tabs 4 by Yung A. mouth x [place], - 2 days, M.D. 06/06 then by mouth x 2 days, then 2 by mouth x 2 days,the n 1 by mouth x 1 day Levocetirizine 05/28 Hx Tablets 5mg 7tabs 1 by 708.1 Yung A. Dihydrochloride mouth [place], - every M.D. Ranitidine HCL 05/28 Hx Tablets 300mg 7tabs 1 by 708.1 Yung A. mouth [place], - every M.D. Fluocinonide 05/28 Hx Cream 0.1% 30gm apply to 708.1 Yung A top of [place], - feet as M.D. 06/11 once a day Prednisone 02/14 Hx Tablets 10mg 19tabs 4 by 692.6 Yung A. mouth x [place], - 2 days, M.D. 02/21 then by mouth x 2 days, then 2 by mouth x 2 days,the n 1 by mouth x 1 day Levocetirizine 02/14 Hx Tablets 5mg 7tabs 1 by 692.6 Yung A. Dihydrochloride mouth [place], - every M.D. Ranitidine HCL 02/14 Hx Tablets 300mg 7tabs 1 by 692.6 Yung A. mouth [place], - every M.D. Prednisone 11/15 Hx Tablets 20mg 13tabs 2 po qd 692.6 Nica L. /2013 x Lola helton, - then 1 M.D. 02/14 po qd x d and / po x 3 d take with food Prednisone 11/15 Hx Tablets 20mg 13tabs 2 po qd 692.6 Nica L. /2013 x Lola helton, - then 1 M.D. 02/14 po qd x d and 1/2 po x 3 d take with food Prednisone 10/24 Hx Tablets 20mg 13tabs 2 po qd 692.6 x 3d, [place], - then 1 Afnp-C 11/02 po qd x d and 1/2 po x 3 d take with food Sertraline HCL 06/27 Hx Tablets 25mg 10tabs 1 po qd 300.00 Giron A. Otilio Mejía - 06/27 Sertraline HCL 06/27 Hx Tablets 50mg 90tabs 1 by F41.1 Yung A. mouth [place], - every M.D. Srinivasa Contour 06/08 Hx 100unit test Sonia Blood Glucose s every [place], Test Strips - day as M.D. 03/24 Bupropion HCL XL 05/17 Hx Tablets ER 150mg 30tabs 1 po qd 300.00 Gabriela 24HR Giselle, - SAMPLING EXPERT 06/27 Medrol Dosepak 11/24 Hx Tablets 4mg 1pack use as 692.6 Giron A. directed Otilio Mejía - 12/06 Azithromycin 08/08 Hx Tablets 500mg 13tabs 2 po x 3 461.8 days, [facility], - then 1 [employer]ING [employer] 11/24 per x 7 days Cheratussin ac 08/08 Hx Syrup 100-10mg/ 100ml 5 ml 786.2 5ML every 12 [facility], - hrs prn [facility] 11/24 cough Work Excuse 08/08 Hx excuse 466.0 from [facility], - work due [facility] 11/24 to illness until 08/08/12 through 08/10/12 Proair HFA 05/23 Hx Aerosol 108(90Bas 1units 2 Puffs J45.20 Zay Link /2012 e) mcg/ac Q Id prn Peggy Candelario M.D. 04/02 Levofloxacin 05/23 Hx Tablets 500mg 10tabs 1 po qd 461.8 Zay Link /2012 Peggy Candelario M.D. 08/08 Sertraline HCL 02/13 Hx Tablets 50mg 30tabs Take One 300.00 Mack Tablet Otilio Mejía - By Mouth 05/17 Day Zithromax Z-Merritt 01/05 Hx Tablets 250mg 1Pack as Mack Chua directed Otilio Mejía - 02/02 Sertraline HCL 01/05 Hx Tablets 25mg 90tabs 1 po qd 300.00 Mack Otilio Mejía - 02/13 Zithromax Z-Merritt 12/30 Hx Tablets 250mg 1Pack as Roni Rivas directed Peggy Solomon M.D. 01/05 Prednisone 02/15 Hx Tablets 20mg 18tabs 3 x 3 Roni Evelyn days 2 Peggy Solomon x 3 days MBernard 12/30 1 x 3 days Proair HFA 02/04 Hx Aerosol 108(90Bas 2units Two 493.90 e) mcg/ac Inhalati Otilio Mejía - ons One Apart Every 4 Hours as Needed Ibuprofen 08/27 Hx Tablets 800mg 90tabs 1 po q8 493.00 hours Giselle, - tid with [employer] 02/15 Tussionex 08/27 Hx Syrup 10mg;8 4Oz 1 tsp q 493.00 mg/5 ML 12 hrs Giselle, - SAMPLING EXPERT 10/01 Levaquin 08/27 Hx Tablets 500mg 10tabs 1 po qd 493.00 x 10 Giselle, - days [employer] 10/01 Xopenex 08/27 Hx Nebulizer 1.25mg/3M 1box use qd 493.00 L - qid in Giselle, - nebulize [employer] 10/01 r sob/coug h/ wheeze Nebulizer 08/27 Hx Kit 1units to use J45.20 Gabriela Kit/Tubing/Mouth with Giselle, piece - nebulize [employer] 02/03 Nebulizer 08/27 Hx Misc 1units use as J45.20 directed Giselle, - SAMPLING EXPERT 02/03 dx: asthma lifelong Symbicort 08/27 Hx Aerosol 160-4.5mc 1units 1 puff 493.00 g/Act bid Otilio Mejía - 12/30 Ibuprofen 04/30 Hx Tablets 800mg 30tabs 1 po q8 719.47 Giron hours Otilio Mejía - tid with 08/27 food next three days then prn Actos 04/30 Hx Tablets 15mg 90tabs 1 po qd 250.00 Giron A. Otilio Mejía - 04/30 Metformin HCL 04/30 Hx Tablets 1000mg 180tabs 1 po bid 250.00 Giron A Otilio Mejía - 11/24 Vivotif Candice 03/19 Hx Capsules 4caps one V65.8 DR ankit Mejía M.D. - po qod 07/21 for doses, complete more than one week before leaving Cephalexin 12/06 Hx Tablets 500mg 20tabs 1 po qid Oumou /2010 Peggy Quintero M.D. 12/17 Hydrocodone-Acet 12/06 Hx Tablets 10-500mg 100tabs 1-2 po Oumou aminophen q8 hours Peggy Quintero M.D. 12/17 for pain Ibuprofen 12/06 Hx Tablets 800mg 90tabs 1 po q8 Oumou hours donell Rascon - tid with Otilio 04/30 Advair Diskus 09/03 Hx Misc 250-50mcg 3units 1 puff Giron A. /Dose bid Otilio Mejía - 11/24 Levaquin 08/13 Hx Tablets 500mg 10tabs 1 po qd 465.9 Giron Otilio Mejía - 10/06 Prednisone 08/13 Hx Tablets 20mg 8tabs 2 tabs x 493.90 Giron 4 days Otilio Mejía - 10/06 Contour Blood 08/02 Hx 1Month testing Oumou Test qid or Peggy Quintero M.D. 11/24 Metformin HCL 07/30 Hx Tablets 500mg 180tabs 1 po bid 250.00 Giron Otilio Mejía - 04/30 Prednisone 07/30 Hx Tablets 10mg 30tabs 2 bid x 493.90 3dAlfonzo pelletier M.D. - then 3 08/13 qd x days, then 1 bid x 3 days then 1 qd x 3 Azithromycin 07/30 Hx Tablets 250mg 6tabs 2 po 493.90 today Otilio Mejía - and 1 po 08/13 x 4 days Mens One A Day 07/02 Hx [facility] 11/24 Of Niacin 07/02 Hx Tablets 500mg 1 po qd [facility] 07/08 Of Levaquin 07/02 Hx Tablets 750mg 5tabs 1 qd x 465.9 5d Otilio Mejía - 07/30 Prednisone 07/02 Hx Tablets 10mg 30tabs 2 bid x 493.90 3dAlfonzo pelletier M.D. - then 3 07/30 qd x days, then 1 bid x 3 days then 1 qd x 3 Tussionex 07/02 Hx Syrup 10mg;8 4Oz 1 tsp q 466.0 mg/5 ML 12 hrs Otilio Mejía - 10/06 Proair HFA 04/09 Hx Aerosol 90mcg/ac 1units 2 puffs 493.90 every Otilio Mejía - four prn sob or wheezing Metformin HCL 04/08 Hx Tablets 500mg 90tabs 1 po 250.00 daily Otilio Mejía - 07/30 Cozaar 10/25 Hx Tablets 50mg 90tabs 1 po qd 401.1 Otilio Mejía - 11/24 Cozaar 09/26 Hx Tablets 25mg 30tabs 1 po qd 401.1 Nae - Afnp-C 10/25 Zithromax 07/25 Hx Tablets 250mg 6Tabs 2 po qd Nae almaguer, - then 1 Afnp-C 05/04 po qd /2008 times 4 Tussionex 08/31 Hx Liquid ER (12/23/5ML 120ml 5ml po q 465.9 Zay TDeena Pennkinetic ) 12 hours Midura, Extended Release - M.D. 08/15 Robitussin A-C 08/24 Hx 80ml 1-2 tsp 466.0 Giron A. po q4h Otilio Mejía - prn 07/25 cough Zithromax 08/24 Hx Tablets 250mg 6Tabs 2 po qd 466.0 Giron A. today , Otilio Mejía - then 1 07/25 po qd times 4 Prednisone 08/24 Hx Tablets 20mg 21tabs 3 tabs x 493.90 Giron A 3 days, Otilio Mejía - then 2 07/25 tabs x 3 days then 1 tab x 3 days then 1/2 tab for three days Albuterol 08/24 Hx Aerosol 90mcg/Act 1Mdi 2 puffs 493.90 Giron A q4hrs Otilio Mejía - prn 04/09 Zithromax 02/02 Hx Capsules 250mg 11caps 2 tabs 466.0 Gabriela /2006 po x1, Giselle, - then 1 [employer]ING EXPERT 08/24 tab po /2007 qd x 9 more days Tussionex 02/02 Hx Syrup 10mg;8 4Oz 1 TSP Q 466.0 mg/5 ML 12 HRS Giselle, - SAMPLING EXPERT 08/24 Percocet 02/02 Hx Tablets 10mg;325 30tabs 1 PO Q Gabriela /2006 mg 4-5 Giselle, - Hours [employer]ING [employer]ERT 08/24 prn Lisinopril 07/06 Hx Tablets 5mg 30tabs 1 po qd 401.1 Giron A. Otilio Mejía - 09/26 Topomax 07/06 Hx 25mg 60units 1 at hs Zay T. /2007 for 1 Midura, - week M.D. 08/24 then at hS Zithromax 04/21 Hx Capsules 250mg 6caps 2 Tabs Linda PO X1, [place], - Then 1 Afnp-C 04/26 Tab PO /2005 qd X 4 More Days Albuterol Mdi 04/21 Hx 1units 2 puffs Zay T. q 4hr Midura, - prn M.D. 07/25 cough wheeze Mucinex 03/31 Hx 0units 600 MG 1-2 PO Medicine - bid [facility] 04/21 Of [place] Levaquin 03/31 Hx Tablets 500mg 10tabs 1 PO qd Zay T. /2004 Andree, - M.D. 04/21 Medrol Dosepack 03/31 Hx 4mg 1units as Zay T. /2004 Directed Andree, - M.D. 08/27 Quinamn 03/31 Hx 260mg 60units 1-2 po Zay T. bid prn Andree, - Leg M.D. 04/21 Cramps Levaquin 03/23 Hx 500mg 10units 1 qd Zay T. Andree, - M.D. 03/31 Tussionex 03/23 Hx 100ml 1 tsp Zay T. q12h prn Andree, - M.D. 03/31 Zithromax 03/10 Hx 250mg 6units 2 tabs Gabriela day 1 Giselle, - SAMPLING EXPERT 03/23 1 tab qd days 2 thru 5 Humibid LA 03/10 Hx 60units 1 bid Gabriela Giselle, - SAMPLING EXPERT 03/31 Advair Discus 03/10 Hx 100/50 Sample one inhalati Giselle, - on twice [employer]ING EXPERT 03/23 daily 2004 Zithromax 07/21 Hx 250mg 6units 2 Tabs Gabriela Day 1 Giselle, - SAMPLING EXPERT 11/12 1 Tab qd Days 2 Thru 5 Entex-LA 07/21 Hx 20units 1 PO bid Gabriela (Without Ppa) prn Giselle, - SAMPLING EXPERT 11/12 Plegine 07/21 Hx 35mg 180unit 1-2 tid Gabriela s Giselle, - SAMPLING EXPERT 03/31 Zithromax 05/23 Hx 250mg 6units 2 tabs Gabriela day 1 Giselle, - SAMPLING EXPERT 07/21 1 tab qd days 2 thru 5 Claritin D 24HR 05/23 Hx 90units 1qd Giselle, - SAMPLING EXPERT 11/12 Meridia 05/23 Hx 10mg 30units one qd Gabriela Giselle, - SAMPLING EXPERT 07/21 Liat-D 08/31 Hx 60units 1 po bid Zay T. /2001 prn for Midura, - allergy M.D. 05/23 Tobradex 08/31 Hx Ophth 1Bottle 1-2 gtts Zay T. /2001 Soln lt eye Midura, - qid M.D. 05/23 Plegine 08/31 Hx 35mg 180unit 1-2 tid Zay T. /2001 s prn Midura, - M.D. 05/23 Plegine 10/13 Hx 35mg 180unit 1-2 tid Zay T. s Before Midura, - Meals M.D. 08/31 Prednisone 03/19 Hx 10mg 5 Tabs Zay T. PO qd X Midura, - 2 D, 4T M.D. 03/19 qd X3D, 3T QDX 3D, 1YCVT0T, 1T QDX 2D And D/C Claritin D 24 HR 03/19 Hx 30units One PO qd Giselle, - SAMPLING EXPERT 04/18 Prednisone 03/19 Hx 10mg 5 Tabs PO qd X Giselle, - 2 D, 4T SAMPLING EXPERT 03/31 qd X3D, 3T QDX 3D, 0YODD0S, 1T QDX 2D And D/C Ciprofloxacin 06/19 Hx 500mg 20units 1 PO bid Zay T. Midura, - M.D. 03/09 Medrol 06/19 Hx Dose Pack 1units as Zay T. Directed Midura, - M.D. 03/09 Zithromax 06/05 Hx 250mg 6units 2 Tabs Celia Day 1 Lewis, - Afnp-C 06/10 1 Tab qd Days 2 Thru 5 Robitussin ac 06/05 Hx 4Oz 1-2 TSP PO Q4H Lewis, - prn Afnp-C 06/15 Cough Entex Pse 06/05 Hx 20units 1 bid prn Lewis, - [place] Afnp-C 06/15 on Liat-D 10/28 Hx 60units 1 PO bid Zay T. prn For Midura, - Allergy M.D. 08/31 Symptoms Zithromax 10/09 Hx Tabs 250mg 6tabs 2 Tabs Vincenzo F. /1997 Day 1 Peggy Grey.Juana 10/14 1 Tab qd Days 2 Thru 5 Proventil 10/09 Hx Mdi 1units Two Vincenzo F. Puffs Q Que, - 4H prn M.DDeena 03/09 Cough Wheezing Niacin Hx Tablets ER 500mg 1 tab qd Giron A. /0000 Otilio Mejía - 10/06 Hydrocodone-Acet Hx Tablets 5-325mg 30tabs 1-2 q 6 Unknown aminophen / hrs prn - pain 12/06 [address] 81mg 1 po qd Unknown /0000 - 11/24 Vitamin C 00/00 Hx Tablets 1000mg qd Unknown /0000 - 02/03 Vitamin B12 /00 Hx Tablets ER 1000mcg 2 po qd Unknown /0000 - 02/03 Multivitamins 00/00 Hx Tablets 90tabs 1 po qd Unknown /0000 - 12/30 Biotin 00/00 Hx Capsules 5000mcg 1 po qd Unknown /0000 - 07/21 Calcium Citrate 00 Hx Tablets 250mg 2 petite Unknown /0000 tabs sd - 12/14 Bactrim 0000 Hx Tablets 400-80mg use Unknown /0000 twice a - day 12/14 Prevacid Hx Capsules 15mg 1 by Unknown /0000 mouth - every 11/07 day acid reflux as needed Immunizations CPT Code Status Date Vaccine Lot # [id number] Given 01/28/2017 Influenza Vac, Quad[place] [id number] Given 03/24/2016 Influenza Vac, Quadrivalent, Slit Virus, Im [id number] 70164 Given 12/03/2015 Tdap Tetanus, W Pertussis [id number] 14658 Given 12/03/2015 Hep A Adlt Immunization [id number] 37073 Given 04/02/2015 Influenza Vac, Quadrivalent, Slit Virus, Im [id number] 03571 Given 04/30/2010 Hepatitis B Immunization, adult dosage, for [id number] intramuscular use 12732 Given 03/19/2010 Hep A Adlt Immunization [id number] 92008 Given 07/08/2009 Pneumococcal Immunization [id number] 31154 Given 04/08/2009 H1N1 Virus Vaccine [id number] 26190 Given 04/08/2009 H1N1 Immunization Intramuscular/Intranasal W Counseling Vital Signs Date Vital Result Comment 01/10/2018 BP Systolic 130 mmHg BP Diastolic 70 mmHg Heart Rate 76 /min Body Temperature 98.2 F Respiratory Rate 20 /min Weight 192.50 lb 12/14/2017 BP Systolic 112 mmHg BP Diastolic 74 mmHg Heart Rate 66 /min Body Temperature 98.6 F Respiratory Rate 16 /min Height 70 inches 5'10" Weight 196.12 lb BMI (Body Mass Index) 28.1 kg/m2 11/07/2017 BP Systolic 142 mmHg BP Diastolic 76 mmHg Heart Rate 72 /min Body Temperature 98.1 F Height 70 inches 5'10" Weight 192.12 lb BMI (Body Mass Index) 27.6 kg/m2 07/29/2017 BP Systolic 140 mmHg BP Diastolic 94 mmHg Heart Rate 68 /min Body Temperature 97.8 F Respiratory Rate 16 /min Height 70 inches 5'10" Weight 195.00 lb BMI (Body Mass Index) 28.0 kg/m2 03/24/2016 BP Systolic 124 mmHg BP Diastolic 80 mmHg Heart Rate 64 /min Body Temperature 98.8 F Respiratory Rate 18 /min Height 70 inches 5'10" Weight 188.00 lb BMI (Body Mass Index) 27.0 kg/m2 02/04/2016 BP Systolic 120 mmHg BP Diastolic 86 mmHg Heart Rate 60 /min Body Temperature 98.6 F Height 70 inches 5'10" Weight 193.00 lb BMI (Body Mass Index) 27.7 kg/m2 12/03/2015 BP Systolic 140 mmHg BP Diastolic 92 mmHg Heart Rate 60 /min Body Temperature 97.6 F Weight 191.12 lb 08/15/2015 BP Systolic 110 mmHg BP Diastolic 70 mmHg Heart Rate 72 /min Body Temperature 98.0 F Respiratory Rate 18 /min Weight 201.00 lb 05/02/2015 BP Systolic 134 mmHg BP Diastolic 80 mmHg Heart Rate 60 /min Body Temperature 98.4 F Respiratory Rate 15 /min Height 70 inches 5'10" Weight 202.25 lb BMI (Body Mass Index) 29.0 kg/m2 04/02/2015 BP Systolic 144 mmHg BP Diastolic 92 mmHg Heart Rate 78 /min Body Temperature 98.4 F Respiratory Rate 18 /min Height 70 inches 5'10" Weight 200.00 lb BMI (Body Mass Index) 28.7 kg/m2 02/26/2015 BP Systolic 118 mmHg BP Diastolic 70 mmHg Heart Rate 60 /min Body Temperature 97.1 F Respiratory Rate 18 /min Height 70 inches 5'10" Weight 194.00 lb BMI (Body Mass Index) 27.8 kg/m2 07/22/2014 BP Systolic 122 mmHg BP Diastolic 70 mmHg Heart Rate 72 /min Body Temperature 97.2 F Height 70 inches 5'10" Weight 217.00 lb BMI (Body Mass Index) 31.1 kg/m2 05/28/2014 BP Systolic 124 mmHg BP Diastolic 80 mmHg Heart Rate 60 /min Body Temperature 97.9 F Respiratory Rate 16 /min Height 70 inches 5'10" Weight 214.00 lb BMI (Body Mass Index) 30.7 kg/m2 02/14/2014 BP Systolic 122 mmHg BP Diastolic 80 mmHg Heart Rate 68 /min Body Temperature 98.4 F Respiratory Rate 16 /min Height 70 inches 5'10" Weight 215.00 lb BMI (Body Mass Index) 30.8 kg/m2 10/24/2013 Heart Rate 64 /min Body Temperature 98.8 F Respiratory Rate 16 /min Height 70 inches 5'10" Weight 214.00 lb BMI (Body Mass Index) 30.7 kg/m2 06/27/2013 BP Systolic 120 mmHg BP Diastolic 86 mmHg Heart Rate 60 /min Body Temperature 98.3 F Respiratory Rate 20 /min Height 70 inches 5'10" Weight 217.00 lb BMI (Body Mass Index) 31.1 kg/m2 05/17/2013 BP Systolic 118 mmHg BP Diastolic 60 mmHg Heart Rate 68 /min Body Temperature 97.1 F Height 70 inches 5'10" Weight 227.12 lb BMI (Body Mass Index) 32.6 kg/m2 11/24/2012 Body Temperature 98.7 F Respiratory Rate 18 /min Height 70 inches 5'10" Weight 228.00 lb BMI (Body Mass Index) 32.7 kg/m2 08/08/2012 BP Systolic 124 mmHg BP Diastolic 78 mmHg Heart Rate 54 /min Body Temperature 97.5 F Respiratory Rate 16 /min O2 % BldC Oximetry 97 % Height 70 inches 5'10" Weight 217.00 lb BMI (Body Mass Index) 31.1 kg/m2 05/23/2012 BP Systolic 112 mmHg BP Diastolic 64 mmHg Heart Rate 60 /min Body Temperature 97.9 F Height 70 inches 5'10" Weight 206.00 lb BMI (Body Mass Index) 29.6 kg/m2 02/03/2012 BP Systolic 120 mmHg BP Diastolic 82 mmHg Heart Rate 54 /min Height 70 inches 5'10" Weight 189.00 lb BMI (Body Mass Index) 27.1 kg/m2 01/06/2012 BP Systolic 124 mmHg BP Diastolic 84 mmHg Heart Rate 54 /min Body Temperature 96.8 F Height 70 inches 5'10" Weight 190.00 lb BMI (Body Mass Index) 27.3 kg/m2 12/31/2011 BP Systolic 114 mmHg BP Diastolic 84 mmHg Heart Rate 54 /min Body Temperature 97.4 F Height 70 inches 5'10" Weight 195.00 lb BMI (Body Mass Index) 28.0 kg/m2 02/15/2011 BP Systolic 104 mmHg BP Diastolic 72 mmHg Heart Rate 52 /min Body Temperature 98.3 F Height 70 inches 5'10" Weight 218.00 lb BMI (Body Mass Index) 31.3 kg/m2 11/24/2010 BP Systolic 104 mmHg BP Diastolic 72 mmHg Heart Rate 66 /min Body Temperature 97.4 F Height 70 inches 5'10" Weight 259.00 lb BMI (Body Mass Index) 37.2 kg/m2 10/01/2010 BP Systolic 126 mmHg BP Diastolic 84 mmHg Heart Rate 78 /min Body Temperature 98.3 F Height 70 inches 5'10" Weight 291.00 lb BMI (Body Mass Index) 41.7 kg/m2 08/27/2010 BP Systolic 110 mmHg BP Diastolic 70 mmHg Heart Rate 68 /min Body Temperature 98.7 F Height 70 inches 5'10" Weight 297.00 lb BMI (Body Mass Index) 42.6 kg/m2 07/21/2010 BP Systolic 120 mmHg BP Diastolic 76 mmHg Heart Rate 64 /min Body Temperature 97.8 F Height 70 inches 5'10" Weight 294.00 lb BMI (Body Mass Index) 42.2 kg/m2 04/30/2010 BP Systolic 132 mmHg BP Diastolic 68 mmHg Heart Rate 66 /min Body Temperature 97.1 F Height 70 inches 5'10" Weight 297.00 lb BMI (Body Mass Index) 42.6 kg/m2 03/19/2010 BP Systolic 140 mmHg BP Diastolic 86 mmHg Heart Rate 60 /min Body Temperature 98.0 F Respiratory Rate 20 /min Height 70 inches 5'10" Weight 300.00 lb BMI (Body Mass Index) 43.0 kg/m2 12/17/2009 BP Systolic 122 mmHg BP Diastolic 78 mmHg Heart Rate 72 /min Body Temperature 97.4 F Height 70 inches 5'10" Weight 293.00 lb BMI (Body Mass Index) 42.0 kg/m2 12/06/2009 BP Systolic 128 mmHg BP Diastolic 76 mmHg Heart Rate 78 /min Body Temperature 98.1 F Height 70 inches 5'10" Weight 304.00 lb BMI (Body Mass Index) 43.6 kg/m2 10/06/2009 BP Systolic 130 mmHg BP Diastolic 82 mmHg Heart Rate 68 /min Body Temperature 98.2 F Weight 303.00 lb 08/13/2009 BP Systolic 120 mmHg BP Diastolic 80 mmHg Heart Rate 60 /min Body Temperature 98.0 F Respiratory Rate 24 /min O2 % BldC Oximetry 94 % Weight 304.00 lb 07/30/2009 BP Systolic 138 mmHg BP Diastolic 80 mmHg Heart Rate 80 /min Body Temperature 98.8 F Weight 308.00 lb 07/08/2009 BP Systolic 130 mmHg BP Diastolic 82 mmHg Heart Rate 73 /min Body Temperature 97.6 F O2 % BldC Oximetry 96 % Height 70 inches 5'10" Weight 306.00 lb BMI (Body Mass Index) 43.9 kg/m2 07/02/2009 BP Systolic 120 mmHg BP Diastolic 84 mmHg Heart Rate 66 /min Body Temperature 98.3 F Respiratory Rate 18 /min O2 % BldC Oximetry 96 % Height 70 inches 5'10" Weight 312.00 lb BMI (Body Mass Index) 44.8 kg/m2 04/29/2009 BP Systolic 130 mmHg BP Diastolic 86 mmHg Heart Rate 78 /min Body Temperature 97.7 F Height 70 inches 5'10" Weight 315.00 lb BMI (Body Mass Index) 45.2 kg/m2 04/08/2009 BP Systolic 122 mmHg BP Diastolic 82 mmHg Heart Rate 60 /min Body Temperature 97.4 F Respiratory Rate 20 /min Weight 314.00 lb 12/25/2008 BP Systolic 128 mmHg BP Diastolic 88 mmHg Heart Rate 60 /min Body Temperature 98.0 F Respiratory Rate 18 /min Height 70 inches 5'10" Weight 311.00 lb BMI (Body Mass Index) 44.6 kg/m2 11/28/2008 BP Systolic 130 mmHg BP Diastolic 90 mmHg Heart Rate 72 /min Body Temperature 98.0 F Height 70 inches 5'10" Weight 310.00 lb BMI (Body Mass Index) 44.5 kg/m2 10/25/2008 BP Systolic 142 mmHg BP Diastolic 62 mmHg Heart Rate 68 /min Body Temperature 97.3 F Respiratory Rate 16 /min Weight 310.00 lb 09/26/2008 BP Systolic 124 mmHg BP Diastolic 78 mmHg Heart Rate 68 /min Body Temperature 97.0 F Respiratory Rate 16 /min Weight 302.00 lb 08/27/2008 BP Systolic 142 mmHg BP Diastolic 80 mmHg Heart Rate 76 /min Body Temperature 97.9 F Weight 303.00 lb 08/15/2008 BP Systolic 154 mmHg BP Diastolic 90 mmHg Heart Rate 76 /min Body Temperature 98.4 F Respiratory Rate 20 /min Weight 301.00 lb 07/25/2008 BP Systolic 126 mmHg BP Diastolic 92 mmHg Heart Rate 66 /min Body Temperature 97.2 F Height 70 inches 5'10" Weight 302.00 lb BMI (Body Mass Index) 43.3 kg/m2 2007 BP Systolic 120 mmHg BP Diastolic 78 mmHg Heart Rate 78 /min Body Temperature 98.8 F Height 70 inches 5'10" Weight 298.00 lb BMI (Body Mass Index) 42.8 kg/m2 08/25/2007 BP Systolic 120 mmHg BP Diastolic 80 mmHg Body Temperature 98.3 F Height 70 inches 5'10" Weight 298.00 lb BMI (Body Mass Index) 42.8 kg/m2 02/02/2007 BP Systolic 142 mmHg BP Diastolic 90 mmHg Heart Rate 72 /min Body Temperature 97.9 F Height 70 inches 5'10" Weight 299.00 lb BMI (Body Mass Index) 42.9 kg/m2 07/28/2006 BP Systolic 122 mmHg BP Diastolic 70 mmHg Heart Rate 76 /min Height 70 inches 5'10" Weight 296.00 lb BMI (Body Mass Index) 42.5 kg/m2 07/06/2006 BP Systolic 152 mmHg BP Diastolic 100 mmHg Heart Rate 72 /min Height 70 inches 5'10" Weight 297.00 lb BMI (Body Mass Index) 42.6 kg/m2 06/03/2006 BP Systolic 160 mmHg BP Diastolic 82 mmHg Heart Rate 76 /min Height 70 inches 5'10" Weight 294.00 lb BMI (Body Mass Index) 42.2 kg/m2 04/21/2006 BP Systolic 132 mmHg BP Diastolic 80 mmHg Body Temperature 98.6 F Height 70 inches 5'10" 03/31/2005 BP Systolic 124 mmHg BP Diastolic 70 mmHg Heart Rate 66 /min Body Temperature 98.4 F Height 70 inches 5'10" Weight 278.00 lb BMI (Body Mass Index) 39.9 kg/m2 03/23/2004 BP Systolic 134 mmHg BP Diastolic 80 mmHg Heart Rate 66 /min Body Temperature 97.1 F Height 70 inches 5'10" Weight 269.00 lb BMI (Body Mass Index) 38.6 kg/m2 03/10/2004 BP Systolic 122 mmHg BP Diastolic 80 mmHg Heart Rate 80 /min Height 70 inches 5'10" Weight 266.00 lb BMI (Body Mass Index) 38.2 kg/m2 11/13/2003 BP Systolic 128 mmHg BP Diastolic 92 mmHg Heart Rate 88 /min Height 70 inches 5'10" Weight 276.00 lb BMI (Body Mass Index) 39.6 kg/m2 07/22/2003 BP Systolic 140 mmHg BP Diastolic 84 mmHg Heart Rate 66 /min Body Temperature 98.2 F Height 70 inches 5'10" Weight 275.00 lb BMI (Body Mass Index) 39.5 kg/m2 05/23/2003 BP Systolic 144 mmHg BP Diastolic 98 mmHg Heart Rate 88 /min Body Temperature 97.6 F Height 70 inches 5'10" Weight 272.00 lb BMI (Body Mass Index) 39.0 kg/m2 08/31/2001 BP Systolic 126 mmHg LG Cuff BP Diastolic 80 mmHg LG Cuff Body Temperature 97.7 F Height 70 inches 5'10" Weight 258.00 lb BMI (Body Mass Index) 37.0 kg/m2 05/13/2000 BP Systolic 122 mmHg BP Diastolic 68 mmHg Heart Rate 66 /min Height 70 inches 5'10" Weight 232.00 lb BMI (Body Mass Index) 33.3 kg/m2 12/10/1999 BP Systolic 122 mmHg LA, SM Cuff BP Diastolic 88 mmHg LA, SM Cuff Heart Rate 72 /min Reg Height 70 inches 5'10" Weight 231.00 lb BMI (Body Mass Index) 33.1 kg/m2 10/14/1999 BP Systolic 116 mmHg LG Cuff BP Diastolic 80 mmHg LG Cuff Height 70 inches 5'10" Weight 252.00 lb BMI (Body Mass Index) 36.2 kg/m2 03/19/1999 Body Temperature 97.2 F 03/09/1999 Body Temperature 98.2 F Weight 246.00 lb 06/19/1998 BP Systolic 126 mmHg LA LG Cuff BP Diastolic 84 mmHg LA LG Cuff Body Temperature 97.6 F 06/05/1998 Body Temperature 98.7 F Weight 250.00 lb 10/28/1997 BP Systolic 120 mmHg BP Diastolic 78 mmHg Weight 255.00 lb 10/09/1997 BP Systolic 130 mmHg L Arm BP Diastolic 86 mmHg L Arm Heart Rate 64 /min Body Temperature 96.0 F Height 71.5 inches 5'11.50" Weight 249.00 lb Results Test Date Test Result H/L Range Note Laboratory test finding 01/10/2018 Quickstrep POS Negative Chlamydia/GC 12/28/2017 Chlamydia Negative Negative 1, 2 Amplification trachomatis, Cleo Neisseria gonorrhoeae, Cleo Negative Negative 1, 3 Laboratory test 12/28/2017 RPR Non Reactive Non Reactive 1, 4 finding Laboratory test 12/28/2017 HIV 1&2 Antibody NEGATIVE Negative finding Screen ([facility]) Urine Culture And 12/14/2017 Urine Culture SEE RESULT 5 Sensitivities BELOW Ua - Micro ([facility]) 12/14/2017 Appearance CLOUDY Color YELLOW Glucose, Urine ([facility]/CTX) NEG Bilirubin NEG Ketones NEG SP Grav 1.015 Blood SMALL PH 7.0 Protein SSA:1+ Urobil 0.2 Nitrite POSITIVE Leukocytes ([facility]) LARGE Hyaline - /Lpf Granular - /Lpf WBC ([facility]) 15-20 RBC 4-5 Mucus - /Lpf Epith RARE /Lpf Bacteria 2-3+ /Hpf Amorphous - /Lpf Crystals, Fluid ([facility]/CTX) - Z#Comments - Laboratory test finding 10/19/2017 Troponin I 0.00 ng/mL <0.04 Laboratory test finding 10/10/2017 Magnesium 2.1 mg/dL 1.9-2.7 Creatine Kinase(CK) 85 U/L 10-223 Troponin I 0.00 ng/mL <0.04 Amylase 51 U/L 29-103 Lipase 24 U/L 11.0-82.0 C Reactive Protein < 1.00 mg/L < 5.00 6 Comp Metabolic Panel 10/10/2017 Sodium 136 mmol/L Low 139-145 Potassium 3.4 mmol/L Low 3.5-5.0 Chloride 104 mmol/L 101-111 Co2 Carbon Dioxide 21 mmol/L Low 22-32 Anion Gap 11 mmol/L 2-11 Glucose 124 mg/dL High 70-100 Blood Urea Nitrogen 12 mg/dL 6-24 Creatinine 0.96 mg/dL 0.67-1.17 BUN/Creatinine Ratio 12.5 8-20 Calcium 9.0 mg/dL 8.6-10.3 Total Protein 7.2 g/dL 6.4-8.9 Albumin 4.1 g/dL 3.2-5.2 Globulin 3.1 g/dL 2-4 Albumin/Globulin Ratio 1.3 1-3 Total Bilirubin 0.50 mg/dL 0.2-1.0 Alkaline Phosphatase 76 U/L 34-104 Alt 13 U/L 7-52 Ast 21 U/L 13-39 Egfr Non- 81.0 >60 Egfr 104.2 >60 7 Laboratory test finding 10/10/2017 Partial Thrombo Time 38.4 seconds High 26.0-36.3 PTT Lactic Acid 3.2 mmol/L High 0.5-2.0 8 B-Type Natriuretic Peptide BNP 10 pg/mL 9 Inr/Protime 10/10/2017 Inr 0.98 0.77-1.02 CBC Auto Diff 10/10/2017 White Blood Count 13.2 10^3/uL High 3.5-10.8 Red Blood Count 5.28 10^6/uL 4.0-5.4 Hemoglobin 14.4 g/dL 14.0-18.0 Hematocrit 44 % 42-52 Mean Corpuscular Volume 83 fL 80-94 Mean Corpuscular Hemoglobin 27 pg 27-31 Mean Corpuscular HGB Conc 33 g/dL 31-36 Red Cell Distribution Width 14 % 10.5-15 Platelet Count 282 10^3/uL 150-450 Mean Platelet Volume 6.8 um3 Low 7.4-10.4 Abs Neutrophils 7.2 10^3/uL 1.5-7.7 Abs Lymphocytes 4.3 10^3/uL 1.0-4.8 Abs Monocytes 1.3 10^3/uL High 0-0.8 Abs Eosinophils 0.4 10^3/uL 0-0.6 Abs Basophils 0.1 10^3/uL 0-0.2 Abs Nucleated RBC 0 10^3/uL Granulocyte % 54.1 % 38-83 Lymphocyte % 32.3 % 25-47 Monocyte % 9.7 % High 0-7 Eosinophil % 2.9 % 0-6 Basophil % 1.0 % 0-2 Nucleated Red Blood Cells % 0 Ua - Non Micro ([facility]) 08/11/2017 Appearance clear Color yellow Glucose, Urine ([facility]/CTX) 100mg/dl High know diabetic Bilirubin neg Ketones neg SP Grav 1.015 Blood neg PH 7.0 Protein neg Urobil 0.2 Nitrite neg Leukocytes ([facility] neg Measles/Mumps/Rubella 09/21/2016 Rubella >33.00 Immune 10, 11 Immunity Antibodies, IgG index >0.99 Rubeola Ab, IgG >300.0 AU/mL Immune >29.9 10, 12 Mumps Abs, IgG 24.3 AU/mL Immune >10.9 10, 13 Comprehensive Metabolic Prof 03/24/2016 Sodium 141 mEq/L 134-149 Potassium 4.9 mEq/L 3.6-5.5 Chloride 100 mEq/L 94-112 Carbon Dioxide 29 mEq/L 21-32 Glucose 121 mg/dL High 70-105 BUN 10 mg/dL 6-26 Creatinine 0.8 mg/dL 0.6-1.4 BUN/Creat Ratio 12.5 CALC 8.0-36.0 Calcium 9.1 mg/dL 8.6-10.2 Total Protein 6.7 g/dL 6.4-8.3 Albumin 4.3 g/dL 3.8-5.5 Globulin 2.4 g/dL 2.0-4.8 A/G Ratio 1.8 CALC 0.6-2.3 Alk. Phosphatase 91 U/L 22-95 Alt (SGPT) 22 U/L 7-35 Ast (Sgot) 20 U/L 5-34 Total Bilirubin 1.1 mg/dL 0.2-1.3 GFR Non- >60 ml/min/1.73m^ >=60 GFR >60 ml/min/1.73m^ >=60 Laboratory test finding 03/24/2016 TSH 1.06 mIU/L 0.50-6.00 Lipid Profile 03/24/2016 Cholesterol 138 mg/dL 120-200 Triglycerides 47 mg/dL 30-200 HDL Cholesterol 51 mg/dL 30-70 LDL (Calculated) 78 CALC 0-129 VLDL Cholesterol 9 mg/dL 0-50 HDL Risk Factor 2.7 CALC 0.0-4.4 Laboratory test finding 03/24/2016 PSA 0.3 ng/mL 0.0-4.0 Complete Blood Count 03/24/2016 WBC 9.5 x10^3/UL 3.6-9.6 RBC 5.08 x10^6/UL 3.90-5.70 HGB 15.2 g/dL 12.1-17.2 HCT 45 % 36-50 MCV 88.0 fL 82.2-97.4 MCH 29.9 pg 27.6-33.3 MCHC 34.2 g/dL 33.0-35.5 RDW 14.3 % High 11.6-13.7 PLT 286 x10^3/UL 150-400 MPV 6.2 fL Low 7.4-10.4 Gran # 7.7 x10^3/UL High 1.5-7.2 Lymph# 1.5 x10^3/UL 0.7-4.9 [place]# 0.3 x10^3/UL 0.1-0.9 Gran % 80.3 % High 42.2-75.2 Lymph % 16.2 % Low 20.5-51.1 [place]% 3.5 % 1.7-9.3 Laboratory test finding 03/24/2016 Hemoglobin A1c ([facility]) 5.7 % 4.1-5.7 Comprehensive Metabolic Prof 03/21/2015 Sodium 136 mEq/L 134-149 Potassium 4.1 mEq/L 3.6-5.5 Chloride 100 mEq/L 94-112 Carbon Dioxide 23 mEq/L 21-32 Glucose 97 mg/dL 70-105 BUN 9 mg/dL 6-26 Creatinine 0.7 mg/dL 0.6-1.4 BUN/Creat Ratio 12.9 CALC 8.0-36.0 Calcium 9.6 mg/dL 8.6-10.2 Total Protein 7.0 g/dL 6.4-8.3 Albumin 4.1 g/dL 3.8-5.5 Globulin 2.9 g/dL 2.0-4.8 A/G Ratio 1.4 CALC 0.6-2.3 Alk. Phosphatase 77 U/L 22-95 Alt (SGPT) 22 U/L 7-35 Ast (Sgot) 27 U/L 5-34 Total Bilirubin 1.1 mg/dL 0.2-1.3 GFR Non- >60 ml/min/1.73m^ >=60 GFR >60 ml/min/1.73m^ >=60 Lipid Profile 03/21/2015 Cholesterol 134 mg/dL 120-200 Triglycerides 50 mg/dL 30-200 HDL Cholesterol 54 mg/dL 30-70 LDL (Calculated) 70 CALC 0-129 VLDL Cholesterol 10 mg/dL 0-50 HDL Risk Factor 2.5 CALC 0.0-4.4 Complete Blood Count 03/21/2015 WBC 6.1 x10^3/UL 3.6-9.6 RBC 5.04 x10^6/UL 3.90-5.70 HGB 15.5 g/dL 12.1-17.2 HCT 45 % 36-50 MCV 90.0 fL 82.2-97.4 MCH 30.8 pg 27.6-33.3 MCHC 34.2 g/dL 33.0-35.5 RDW 13.9 % High 11.6-13.7 PLT 198 x10^3/UL 150-400 MPV 6.6 fL Low 7.4-10.4 Gran # 3.9 x10^3/UL 1.5-7.2 Lymph# 1.8 x10^3/UL 0.7-4.9 [place]# 0.4 x10^3/UL 0.1-0.9 Gran % 62.3 % 42.2-75.2 Lymph % 30.0 % 20.5-51.1 [place]% 7.7 % 1.7-9.3 Laboratory test finding 03/21/2015 PSA 0.4 ng/mL 0.0-4.0 14 Laboratory test finding 07/22/2014 Quickstrep neg Negative Throat - Beta Strep [facility] NEG@48HRS CBC Electronic ([facility]) 05/17/2013 WBC 6.6 3.6-9.6 RBC 5.71 High 3.90-5.70 Hemoglobin ([facility]/CMC/CTX) 16.9 g/dL 12.1 - 17.2 Hematocrit ([facility]/CMC/CTX) 51.7 % High 36.1 - 50.3 Platelets 220 10^3/ul 150-400 Lymph% 23.3 20.5-51.1 Mixed% 5.6 Neutrophils % 71.1 Mean Corpuscular Vol 90 82.2-97.4 Mean Corpuscular Hemoglobin 29.6 27.6-33.3 Mean Corpuscular Hemo Concen 32.7 32.0-36.0 RDW 11.4 Low 11.6-13.7 Mean Platelet Volume 6.3 Low 6.5-11.0 Laboratory test finding 05/17/2013 Hemoglobin A1c 5.8 % High 4.1-5.7 ([facility]/CMC,CX) Comprehensive Metabolic 05/17/2013 Albumin 4.8 g/dL 3.8-5.5 Prof Alk. Phos. 102 U/L High 22-95 Alt (SGPT) 19 U/L 10-40 Ast (Sgot) 24 U/L 5-34 BUN 15 mg/dL 6-26 Calcium 9.6 mg/dL 8.6-10.2 Chloride 101 mEq/L 94-112 Creatinine 0.9 mg/dL 0.6-1.4 Carbon Dioxide 23 mEq/L 21-32 Glucose 103 mg/dL 70-105 Sodium 137 mEq/L 134-149 Total Bilirubin 0.7 mg/dL 0.2-1.3 Total Protein 7.4 g/dL 6.3-8.1 Potassium 5.1 mEq/L 3.6-5.5 Globulin 2.6 g/dL 2.0-4.8 A/G Ratio 1.9 Calc 0.6-2.3 BUN/Creat Ratio 16.1 Calc 8.0-36.0 Lipid Profile 05/17/2013 Cholesterol 150 mg/dL 120-200 HDL 36 mg/dL 30-70 Triglycerides 84 mg/dL 30-200 HDL Risk Factor 4.2 CALC 0.0-4.4 LDL (Calculated) 98 CALC 0-129 VLDL (Calculated) 17 mg/dL 0-50 Laboratory test finding 05/17/2013 B12 789 pg/mL 230-1050 Folate 6.41 ng/mL 3.00-16.00 Vitamin D25 35.3 ng/mL 30.0-100.0 Ferritin 69 ng/mL 22-415 Laboratory test finding 01/06/2012 Hemoglobin A1c ([facility] 5.5 % 4.1- 5.7 Ua - Non Micro (a) 01/06/2012 Appearance clear Color yellow Glucose neg Bilirubin neg Ketones neg SP Grav 1.020 Blood neg PH 6.0 Protein neg Urobil 0.2 Nitrite neg Leukocytes ([facility]) neg Laboratory test finding 12/31/2011 Quickstrep negative Negative Comprehensive Metabolic Prof 12/31/2011 Albumin 4.4 g/dL 3.8-5.5 Alk. Phos. 103 U/L High 22-95 15 Alt (SGPT) 28 U/L 10-40 Ast (Sgot) 20 U/L 5-34 BUN 20 mg/dL 6-26 Calcium 9.2 mg/dL 8.6-10.2 Chloride 103 mEq/L 94-112 Creatinine 1.0 mg/dL 0.6-1.4 Carbon Dioxide 24 mEq/L 21-32 Glucose 103 mg/dL 70-105 Sodium 141 mEq/L 134-149 Total Bilirubin 0.7 mg/dL 0.2-1.3 Total Protein 6.5 g/dL 6.3-8.1 Potassium 4.6 mEq/L 3.6-5.5 Globulin 2.2 g/dL 2.0-4.8 A/G Ratio 2.0 Calc 0.6-2.2 BUN/Creat Ratio 20.2 Calc 8.0-36.0 Lipid Profile 12/31/2011 Cholesterol 110 mg/dL Low 120-200 16 HDL 38 mg/dL 30-70 Triglycerides 50 mg/dL 30-200 HDL Risk Factor 2.9 CALC 0.0-4.0 LDL (Calculated) 63 CALC 0-129 VLDL (Calculated) 10 mg/dL 0-50 Laboratory test finding 12/31/2011 PSA 0.30 ng/mL 0.00-4.00 Laboratory test finding 11/29/2011 Vitamin B1 Whole 151 nmol/L 70-180 17 , 18 Blood Vitamin E 6.9 mg/L 5.5 - 17.0 17, 19 Vitamin D, 25 Hydroxy 11/29/2011 25-Hydroxy Vitamin D2 <4.0 ng/mL () 17 25-Hydroxy Vitamin D3 26 ng/mL () 17 25-Hydroxy Vitamin D Total 26 ng/mL () 17, 20 Laboratory test finding 11/29/2011 Ferritin 186 NG/ML 24-336 17 Vitamin B12 > 1500 pg/mL High 180-914 17 Folic Acid > 25.8 NG/ML See Below 17, 21 Iron & Iron Binding Capacity 11/29/2011 Iron Total 165 g/dL 45-182 17 Unsaturated Iron Binding 141 g/dL 17 Total Iron Binding Capacity 306 g/dL 250-450 17 % Iron Saturation 54 % 15-55 17 Comp Metabolic Panel 11/29/2011 Sodium 138 mmol/L 135-145 17 Potassium 4.4 mmol/L 3.5-5.0 17 Chloride 107 mmol/L 101-111 17 Co2 (Carbon Dioxide) 28.0 mmol/L 22-32 17 Anion Gap 3.0 mmol/L 2-11 17, 22 Glucose 93 mg/dL 70-100 17 BUN 22 mg/dL 6-24 17 Creatinine 0.9 mg/dL 0.50-1.40 17 One Over Creatinine 1.11 17 BUN/Creatinine Ratio 24.4 High 8-20 17 Calcium 9.5 mg/dL 8.1-9.9 17 Total Protein 6.7 GM/DL 6.2-8.1 17 Albumin 4.1 GM/DL 3.6-5.4 17 Globulin 2.6 GM/DL 2-4 17 Albumin/Globulin Ratio 1.6 1-3 17 Bilirubin Total 1.0 mg/dL 0.4-1.5 17, 23 Alkaline Phosphatase 73 U/L 39-117 17 Alt (SGPT) 39 U/L 17-63 17 Ast (Sgot) 27 U/L 12-42 17 eGFR Non- 89.3 > 60 17 eGFR 114.9 > 60 17, 24 CBC Auto Diff 11/29/2011 White Blood Count 5.9 CUMM 4.8-10.8 17 Red Cell Count 4.64 CUMM 4.6-6.2 17 Hemoglobin 14.9 g/dL 14.0-18.0 17 Hematocrit 42 % 42-52 17 Mean Corpuscular Volume 90 um3 80-94 17 Mean Corpuscular Hemoglob 32 pg High 27-31 17 Mean Corpuscular HGB Cone 36 g/dL 32-36 17 Redcell Distribution WDTH 13 % 10.5-15 17 Platelet Count 162 CUMM 150-450 17 Mean Platelet Volume 8.3 um3 7.4-10.4 17 Gran % 58.8 % 38-83 17 Lymph % 30.6 % 20-45 17 Mononuclear % 8.4 % 1-9 17 Eosinophil % 1.9 % 0-6 17 Basophil % 0.3 % 0-2 17 Abs Lymphs 1.8 1.0-4.8 17 Abs Mononuclear 0.5 0-0.8 17 Absolute Neutrophil Count 3.5 1.5-7.7 17 Abs Eosinophils 0.1 0-0.6 17 Abs Basophils 0 0-0.2 17 Comments 1 17, 25 Laboratory test finding 07/30/2011 Vitamin E, Serum 9.7 mg/L 4.6-17.8 26 , 27 Iron/Tibc,%Sat Group 07/30/2011 Iron 64 g/dL 46-155 26 Total Iron Binding Cap. 319 g/dL 250-450 26 % Iron Saturation 20.1 % 13.0-45.0 26 Laboratory test finding 07/30/2011 Vitamin B1, Plasma 22.9 nmol/L 5.2- 76.1 26, 28 Vitamin D, 25 Oh 30.0 ng/mL 30.0-100.0 26, 29 CBC Electronic ([facility]) 07/30/2011 WBC 7.5 3.6-9.6 RBC 5.03 3.90-5.70 Hemoglobin ([facility]/CMC/CTX) 15.3 g/dL 12.1 - 17.2 Hematocrit ([facility]/CMC/CTX) 44.3 % 36.1 - 50.3 Platelets 234 10^3/ul 150-400 Lymph% 25.9 20.5-51.1 Mixed% 4.5 Neutrophils % 69.6 Mean Corpuscular Vol 88.1 82.2-97.4 Mean Corpuscular Hemoglobin 30.4 27.6-33.3 Mean Corpuscular Hemo Concen 34.5 32.0-36.0 RDW 13.2 11.6-13.7 Mean Platelet Volume 10.1 6.5-11.0 Laboratory test finding 07/30/2011 B12 > 2260 pg/mL High 230-1050 Folate 17.84 ng/mL High 3.00-16.00 Ferritin 115 ng/mL 22-415 Comprehensive Metabolic Prof 07/30/2011 Albumin 4.8 g/dL 3.8-5.5 Alk. Phos. 103 U/L High 22-95 30 Alt (SGPT) 39 U/L 10-40 Ast (Sgot) 29 U/L 5-34 BUN 15 mg/dL 6-26 Calcium 9.8 mg/dL 8.6-10.2 Chloride 100 mEq/L 94-112 Creatinine 1.0 mg/dL 0.6-1.4 Carbon Dioxide 28 mEq/L 21-32 Glucose 107 mg/dL High 70-105 31 Sodium 137 mEq/L 134-149 Total Bilirubin 0.4 mg/dL 0.2-1.3 Total Protein 7.4 g/dL 6.3-8.1 Potassium 4.1 mEq/L 3.6-5.5 Globulin 2.5 g/dL 2.0-4.8 A/G Ratio 1.9 Calc 0.6-2.2 BUN/Creat Ratio 14.9 Calc 8.0-36.0 Laboratory test finding 06/14/2011 Amylase 44 U/L 20-120 32 Lipase 26 U/L 22-51 C Reactive Protein 0.5 mg/dL Less Than 0.5 Comp Metabolic Panel 06/14/2011 Sodium 139 mmol/L 135-145 Potassium 4.7 mmol/L 3.5-5.0 Chloride 101 mmol/L 101-111 Co2 (Carbon Dioxide) 30.0 mmol/L 22-32 Anion Gap 8.0 mmol/L 2-11 33 Glucose 102 mg/dL High 70-100 BUN 13 mg/dL 6-24 Creatinine 0.8 mg/dL 0.50-1.40 One Over Creatinine 1.25 BUN/Creatinine Ratio 16.3 8-20 Calcium 9.5 mg/dL 8.1-9.9 Total Protein 7.3 GM/DL 6.2-8.1 Albumin 4.7 GM/DL 3.6-5.4 Globulin 2.6 GM/DL 2-4 Albumin/Globulin Ratio 1.8 1-3 Bilirubin Total 0.8 mg/dL 0.4-1.5 34 Alkaline Phosphatase 96 U/L 39-117 Alt (SGPT) 35 U/L 17-63 Ast (Sgot) 28 U/L 12-42 eGFR Non- 102.7 > 60 eGFR 132.1 > 60 35 Manual Differential 06/14/2011 Polysegmented Neutrophil 76 % 38-83 Lymphocyte 16 % Low 25-47 Monocyte 6 % 0-13 Eosinophil 1 % 0-6 Atypical Lymph 1 % 0-6 Absolute Neutrophil Count 7.3 Anisocytosis SLIGHT CBC Auto Diff 06/14/2011 White Blood Count 9.7 CUMM 4.8-10.8 Red Cell Count 4.90 CUMM 4.6-6.2 Hemoglobin 15.3 g/dL 14.0-18.0 Hematocrit 43 % 42-52 Mean Corpuscular Volume 89 um3 80-94 Mean Corpuscular Hemoglob 31 pg 27-31 Mean Corpuscular HGB Cone 35 g/dL 32-36 Redcell Distribution WDTH 14 % 10.5-15 Platelet Count 231 CUMM 150-450 Mean Platelet Volume 8.3 um3 7.4-10.4 36 Comprehensive Metabolic Prof 04/19/2011 Albumin 4.5 g/dL 3.8-5.5 Alk. Phos. 110 U/L High 22-95 37 Alt (SGPT) 20 U/L 10-40 Ast (Sgot) 18 U/L 5-34 BUN 15 mg/dL 6-26 Calcium 9.7 mg/dL 8.6-10.2 Chloride 101 mEq/L 94-112 Creatinine 0.9 mg/dL 0.6-1.4 Carbon Dioxide 26 mEq/L 21-32 Glucose 86 mg/dL 70-105 Sodium 134 mEq/L 134-149 Total Bilirubin 0.5 mg/dL 0.2-1.3 Total Protein 6.8 g/dL 6.3-8.1 Potassium 5.2 mEq/L 3.6-5.5 Globulin 2.3 g/dL 2.0-4.8 A/G Ratio 2.0 Calc 0.6-2.2 BUN/Creat Ratio 16.6 Calc 8.0-36.0 Laboratory test finding 04/19/2011 B12 > 2100 pg/mL High 230-1050 38 Folate >22.00 ng/mL High 3.00-16.00 Ferritin 115 ng/mL 22-415 Laboratory test finding 04/19/2011 Vitamin B1, Plasma 50.1 nmol/L 5.2- 76.1 39, 40 Vitamin E, Serum 12.8 mg/L 3.0-15.8 39 Iron/Tibc,%Sat Group 04/19/2011 Iron 90 g/dL 46-155 39 Total Iron Binding Cap. 303 g/dL 250-450 39 % Iron Saturation 29.7 % 13.0-45.0 39 Laboratory test finding 04/19/2011 Vitamin D, 25 Oh 26.4 ng/mL Low 30.0- 100.0 39, 41 CBC Electronic (a) 04/19/2011 WBC 7.2 3.6-9.6 RBC 4.57 3.90-5.70 Hemoglobin ([facility]/CMC/CTX) 13.8 g/dL 12.1 - 17.2 Hematocrit ([facility]/CMC/CTX) 40.7 % 36.1 - 50.3 Platelets 242 10^3/ul 150-400 Lymph% 29.6 20.5-51.1 Mixed% 4.7 Neutrophils % 65.7 Mean Corpuscular Vol 89.1 82.2-97.4 Mean Corpuscular Hemoglobin 30.2 27.6-33.3 Mean Corpuscular Hemo Concen 33.9 32.0-36.0 RDW 13.7 11.6-13.7 Mean Platelet Volume 9.6 6.5-11.0 Laboratory test finding 01/14/2011 Amylase 40 U/L 20-120 42 Lipase 35 U/L 22-51 Liver Function Panel 01/14/2011 Bilirubin Direct 0.5 mg/dL 0.1-0.5 Indirect Bilirubin 1.4 mg/dL High 0.3-1.0 43 Comp Metabolic Panel 01/14/2011 Sodium 138 mmol/L 135-145 Potassium 4.1 mmol/L 3.5-5.0 Chloride 101 mmol/L 101-111 Co2 (Carbon Dioxide) 27.0 mmol/L 22-32 Anion Gap 10.0 mmol/L 2-11 44 Glucose 101 mg/dL High 70-100 BUN 12 mg/dL 6-24 Creatinine 0.9 mg/dL 0.50-1.40 One Over Creatinine 1.11 BUN/Creatinine Ratio 13.3 8-20 Calcium 9.6 mg/dL 8.1-9.9 Total Protein 7.8 GM/DL 6.2-8.1 Albumin 4.7 GM/DL 3.6-5.4 Globulin 3.1 GM/DL 2-4 Albumin/Globulin Ratio 1.5 1-3 Bilirubin Total 1.9 mg/dL High 0.4-1.5 45 Alkaline Phosphatase 73 U/L 39-117 Alt (SGPT) 30 U/L 17-63 Ast (Sgot) 29 U/L 12-42 eGFR Non- 89.7 > 60 eGFR 115.3 > 60 46 CBC Auto Diff 01/14/2011 White Blood Count 9.0 CUMM 4.8-10.8 Red Cell Count 5.47 CUMM 4.6-6.2 Hemoglobin 16.1 g/dL 14.0-18.0 Hematocrit 47 % 42-52 Mean Corpuscular Volume 87 um3 80-94 Mean Corpuscular Hemoglob 30 pg 27-31 Mean Corpuscular HGB Cone 34 g/dL 32-36 Redcell Distribution WDTH 16 % High 10.5-15 Platelet Count 231 CUMM 150-450 Mean Platelet Volume 9.0 um3 7.4-10.4 Gran % 80.8 % 38-83 Lymph % 13.5 % Low 25-47 Mononuclear % 4.6 % 1-9 Eosinophil % 0.7 % 0-6 Basophil % 0.4 % 0-2 Abs Lymphs 1.2 1.0-4.8 Abs Mononuclear 0.4 0-0.8 Absolute Neutrophil Count 7.2 1.5-7.7 Abs Eosinophils 0.1 0-0.6 Abs Basophils 0 0-0.2 47 Laboratory test finding 01/14/2011 Clotest NEGATIVE Laboratory test finding 11/24/2010 Hemoglobin A1c 5.8 % High 4.1-5.7 ([facility] Type & Screen 11/10/2010 Patient Blood Type A NEGATIVE Antibody Screen NEGATIVE Type And Screen 10/27/2010 Patient Blood Type A NEGATIVE Antibody Screen NEGATIVE Specimen Discard Date 11/10/10 48 Basic Metabolic Profile 10/01/2010 BUN 19 mg/dL 6-26 Calcium 9.9 mg/dL 8.6-10.2 Chloride 102 mEq/L 94-112 Creatinine 1.1 mg/dL 0.6-1.4 Carbon Dioxide 28 mEq/L 21-32 Glucose 103 mg/dL 70-105 Sodium 137 mEq/L 134-149 Potassium 4.5 mEq/L 3.6-5.5 BUN/Creat Ratio 18.2 Calc 8.0-36.0 CBC Electronic ([facility]) 10/01/2010 WBC 11.7 High 3.6-9.6 RBC 5.31 3.90-5.70 Hemoglobin ([facility]/CMC/CTX) 15.4 g/dL 12.1 - 17.2 Hematocrit ([facility]/CMC/CTX) 45.7 % 36.1 - 50.3 Platelets 259 10^3/ul 150-400 Lymph% 18.4 Low 20.5-51.1 Mixed% 2.7 Neutrophils % 78.9 Mean Corpuscular Vol 86.1 82.2-97.4 Mean Corpuscular Hemoglobin 29.0 27.6-33.3 Mean Corpuscular Hemo Concen 33.7 32.0-36.0 RDW 14.0 High 11.6-13.7 Mean Platelet Volume 9.6 6.5-11.0 PT + PTT No Therpy/Unkn 10/01/2010 PTT 32.7 seconds 23.7-35.5 49 PT (No Therapy/Unknown) 13.1 seconds 11.7-14.5 49, 50 Inr 1.0 49, 51 Laboratory test 07/21/2010 Hemoglobin A1c 6.5 % High 4.1-5.7 finding ([facility],CX) Surgical Pathology 06/10/2010 Surgical Pathology 52 - <SEE NOTE> Laboratory test 06/10/2010 Clotest POSITIVE finding Laboratory test 05/29/2010 Cortisol (Am) 12.8 g/dL 4.3-22.4 53 finding Laboratory test 05/29/2010 TSH 4.26 mIU/L 0.50-6.00 finding Comprehensive 05/29/2010 Albumin 4.8 g/dL 3.8-5.5 Metabolic Prof Alk. Phos. 58 U/L 22-95 Alt (SGPT) 24 U/L 10-40 Ast (Sgot) 19 U/L 5-34 BUN 21 mg/dL 6-26 Calcium 10.2 mg/dL 8.6-10.2 Chloride 102 mEq/L 94-112 Creatinine 0.9 mg/dL 0.6-1.4 Carbon Dioxide 26 mEq/L 21-32 Glucose 122 mg/dL High 70-105 54 Sodium 136 mEq/L 134-149 Total Bilirubin 0.4 mg/dL 0.2-1.3 Total Protein 7.6 g/dL 6.3-8.1 Potassium 4.1 mEq/L 3.6-5.5 Globulin 2.8 g/dL 2.0-4.8 A/G Ratio 1.7 Calc 0.6-2.2 BUN/Creat Ratio 22.6 Calc 8.0-36.0 Laboratory test finding 04/30/2010 Sed Rate ([facility]) 9mm CBC (a) 04/30/2010 WBC 9.2 3.6-9.6 RBC 5.44 3.90-5.70 Hemoglobin ([facility]/CTX) 14.8 g/dL 12.1 - 17.2 Hematocrit ([facility]/CTX) 45.8 % 36.1 - 50.3 Platelets 250 10^3/ul 150-400 Lymph% 19.9 Low 20.5-51.1 Mixed% 5.6 Neutrophils % 74.5 Mean Corpuscular Vol 84 82.2-97.4 Mean Corpuscular Hemoglobin 27.2 Low 27.6-33.3 Mean Corpuscular Hemo Concen 32.3 32.0-36.0 RDW 12.6 11.6-13.7 Mean Platelet Volume 7.9 6.5-11.0 Laboratory test finding 04/30/2010 Uric Acid 7.5 mg/dL 2.5-9.2 55 Laboratory test finding 10/06/2009 Alpha 1 Antitrypsin,Ser 97 mg/dL 90- 200 Lipid Profile 10/06/2009 Cholesterol 133 mg/dL 120-200 HDL 28 mg/dL Low 30-70 56 Triglycerides 116 mg/dL 30-200 HDL Risk Factor 4.7 CALC 4.2-7.0 LDL (Calculated) 82 CALC 0-129 VLDL (Calculated) 23 mg/dL 0-50 Comprehensive Metabolic Prof 10/06/2009 Albumin 4.6 g/dL 3.8-5.5 Alk. Phos. 66 U/L 22-95 Alt (SGPT) 24 U/L 10-40 Ast (Sgot) 22 U/L 5-34 BUN 15 mg/dL 6-26 Calcium 9.7 mg/dL 8.6-10.2 Chloride 100 mEq/L 94-112 Creatinine 1.1 mg/dL 0.6-1.4 Carbon Dioxide 24 mEq/L 21-32 Glucose 122 mg/dL High 70-105 57 Sodium 141 mEq/L 134-149 Total Bilirubin 0.3 mg/dL 0.2-1.3 Total Protein 7.5 g/dL 6.3-8.1 Potassium 4.6 mEq/L 3.6-5.5 Globulin 2.9 g/dL 2.0-4.8 A/G Ratio 1.6 Calc 0.6-2.2 BUN/Creat Ratio 13.5 Calc 8.0-36.0 Laboratory test finding 10/06/2009 Hemoglobin A1c 6.6 % High 4.1-5.7 ([place] [place] Laboratory test finding 07/30/2009 Hemoglobin A1c 6.8 % High 4.1-5.7 ([facility] [place] Laboratory test finding 04/16/2009 Hemoglobin A1c 6.9 % High 4.1-5.7 ([facility] [place] Comprehensive Metabolic 04/16/2009 Glucose 146 mg/dL High 70-105 58 Prof BUN 22 mg/dL 6-26 Creatinine 1.0 mg/dL 0.6-1.4 Sodium 135 mEq/L 134-149 Potassium 4.0 mEq/L 3.6-5.5 Chloride 101 mEq/L 94-112 Carbon Dioxide 22 mEq/L 21-32 Albumin 4.6 g/dL 3.8-5.5 Total Protein 7.5 g/dL 6.3-8.1 Calcium 9.1 mg/dL 8.6-10.2 Alk. Phos. 57 U/L 22-95 Ast (Sgot) 21 U/L 5-34 Alt (SGPT) 24 U/L 10-40 Total Bilirubin 0.3 mg/dL 0.2-1.3 Globulin 2.8 g/dL 2.0-4.8 A/G Ratio 1.7 Calc 0.6-2.2 BUN/Creat Ratio 21.3 Calc 8.0-36.0 Lipid Profile 04/16/2009 Cholesterol 126 mg/dL 120-200 HDL 26 mg/dL Low 30-70 59 Triglycerides 222 mg/dL High 30-200 HDL Risk Factor 4.9 CALC 4.2-7.0 LDL (Calculated) 56 CALC 0-129 VLDL (Calculated) 44 mg/dL 0-50 Laboratory test finding 12/25/2008 Hemoglobin A1c 7.0 % High 4.1-5.7 ([facility],CX) Comprehensive Metabolic 11/28/2008 Albumin 4.4 g/dL 3.8-5.5 60 Prof Alk. Phos. 65 U/L 22-95 60 Alt (SGPT) 28 U/L 10-40 60 Ast (Sgot) 25 U/L 5-34 60 BUN 17 mg/dL 6-26 60 Calcium 9.7 mg/dL 8.6-10.2 60 Chloride 99 mEq/L 94-112 60 Creatinine 1.0 mg/dL 0.6-1.4 60 Carbon Dioxide 28 mEq/L 21-32 60 Glucose 117 mg/dL High 70-105 60 Sodium 137 mEq/L 134-149 60 Total Bilirubin 0.5 mg/dL 0.2-1.3 60 Total Protein 7.5 g/dL 6.3-8.1 60 Potassium 4.4 mEq/L 3.6-5.5 60 Globulin 3.1 g/dL 2.0-4.8 60 A/G Ratio 1.4 Calc 0.6-2.2 60 BUN/Creat Ratio 16.3 Calc 8.0-36.0 60 Comprehensive Metabolic Prof 06/04/2006 Albumin 4.6 g/dL 3.8-5.5 60 Alk. Phos. 63 U/L -95 60 Alt (SGPT) 24 U/L 10-40 60 Ast (Sgot) 20 U/L 5-34 60 BUN 14 mg/dL 6-26 60 Calcium 9.6 mg/dL 8.6-10.2 60 Chloride 102 mEq/L 94-112 60 Creatinine 1.0 mg/dL 0.6-1.4 60 Carbon Dioxide 29 mEq/L 21-32 60 Glucose 126 mg/dL High 70-105 60 Sodium 140 mEq/L 134-149 60 Total Bilirubin 0.6 mg/dL 0.2-1.3 60 Total Protein 8.1 g/dL 6.3-8.1 60 Potassium 4.7 mEq/L 3.6-5.5 60 Globulin 3.4 g/dL 2.0-4.8 60 A/G Ratio 1.3 Calc 0.6-2.2 60 BUN/Creat Ratio 14.0 Calc 8.0-36.0 60 Lipid Profile 06/04/2006 Cholesterol 131 mg/dL 120-200 60 HDL 26 mg/dL Low 30-70 60 Triglycerides 137 mg/dL 30-200 60 HDL Risk Factor 5.0 CALC 4.2-7.0 60 LDL (Calculated) 77 CALC 0-129 60 VLDL (Calculated) 27 mg/dL 0-50 60 Laboratory test finding 06/04/2006 PSA 0.27 ng/mL 0.00-4.00 60 Ua - Micro ([facility]) 06/03/2006 Appearance CLEAR Color YELLOW Glucose NEG Bilirubin NEG Ketones TRACE SP Grav >=1.030 Blood 1+ PH 5.0 Protein, Random Urine SSA NEG Urobil 0.2 Nitrite NEG Leukocytes (Fma/CMC/[facility]) NEG Hyaline - /Lpf Granular - /Lpf WBC ([facility]) 0-3 RBC, Fluid 3-5 Mucus - /Lpf Epith RARE /Lpf Bacteria TRACE /Hpf Amorphous - /Lpf Crystals, Urine (Fma/CMC/CTX) - /Lpf Misc - Comp Metabolic ([facility]) 11/14/2003 Glucose, Serum (a/CMC/CTX) 100 mg/dL 70 -118 BUN (Fma/CMC/[facility]rex) 22 mg/dL 6-26 Creatinine (a/CMC/CTX) 0.9 mg/dL 0.6-1.4 BUN/Creatinin Ratio 25.3 8.0-36 Sodium 134 134-149 Potassium 4.3 3.6-5.5 Chloride 94 mEq/L 94-112 Co2 24 21-32 Calcium (a/CMC/[facility]rex) 9.3 mg/dL 8.6-10.0 Total Protein 7.8 g/dL 6.3-8.1 Albumin (a/CMCC/Centrex) 4.4 3.8-5.5 Globulin 3.3 2.0-4.8 A/G Ratio (a/CMC/[facility]rex) 1.3 0.6-2.2 Alkaline Phosphatase (F/C/CTX) 54 U/L 30-110 Alt (SGPT) 22 10-40 Ast (Sgot) (a/CMC/[facility]) 18 U/mL 5-34 Bilirubin, Total 0.9 mg/dL 0.2-1.3 Lipid Profile ([facility]) 11/14/2003 Cholesterol 157 mg/dL 120-200 Triglyceride 189 mg/dL 30-200 HDL-Chol 31 30-85 LDL, Calculated ([facility] 88 CALC 0-129 VLDL 38 0-50 HDL Risk Factor (a) 5.0 CALC 4.2-7.0 Free T4/TSH 11/14/2003 TSH (a/[facility]) 1.41 uIU/ml 0.5-6.0 (a/[facility]) Free T4 0.99 ng/dL 0.75-1.54 Comp Metabolic ([facility]) 10/16/1999 Albumin 4.5 GM/DL 3.80 - 5.50 Alkaline Phosphatase 87 U/L 39-130 Bilirubin, Total 0.9 mg/dL 0.2-1.3 BUN 16 mg/dL 10-26 Calcium 8.8 mg/dL 7.4-9.2 Creatinine 1.0 mg/dL 0.6-1.4 Glucose 104 mg/dL 70 - 118 Ast Sgot 31 U/L 9-44 Alt (SGPT) 23 U/L 10-40 Total Protein 8.6 g/dL 6.3-8.1 Sodium 139 mEq/L 134-149 Potassium 4.4 mEq/L 3.6-5.5 Chloride 101 mEq/L 94-112 Co2 28 21-32 Globulin 4.1 2.0-4.8 Albumin / Globulin Ratio 1.1 0.6-2.2 BUN/Creatinin Ratio 16.0 8.0-36 Laboratory test finding 10/16/1999 Free T4 10.84 pg/mL 7.0-15.5 TSH 1.17 uIU/ML 0.4-4.2 1 SRC:urine 1 sst 2 Source of Specimen: urine 1 sst 3 Source of Specimen: urine 1 sst 4 Source of Specimen: urine 1 sst 5 SEE RESULT BELOW Name: TALI HOWARD : [address]: Roni Yoo MD Acct: [id number] Unit: [id number] AGE: 57 Location: [facility] Re12/15/17 SEX: M Status: REG REF SPEC: [id number] BENJAMÍN: 12/14/17-[address] [facility] [address]: Roni Yoo MD REQ: [id number] RECD: 12/15/17 STATUS: COMP _ SOURCE: URINE SPDESC: ORDERED: Urine Culture COMMENTS: [id number] URINE IN [place]LEMAN TOP TUBE Urine Source: Random Procedure Result Reported Site Urine Culture Final 12/16/17- 1635 ML No Growth (<1,000 CFU/mL) * ML - Main Lab . END OF REPORT DEPARTMENT OF PATHOLOGY, [address] [place] [address] Juan Luis Magdaleno M.D. Director [facility] # [id number] 6 Acute inflammation: >10.00 7 Because ethnic data is not always readily available, this report includes an eGFR for both -Americans and non- Americans. The National Kidney Disease Education Program (NKDEP) does not endorse the use of the MDRD equation for patients that are not between the ages of 18 and 70, are , have extremes of body size, muscle mass, or nutritional status, or are non- or non-. According to the National Kidney Foundation, irrespective of diagnosis, the stage of the disease is based on the level of kidney function: Stage Description GFR(mL/min/1.73 m(2)) 1 Kidney damage with normal or decreased GFR 90 2 Kidney damage with mild decrease in GFR 60-89 3 Moderate decrease in GFR 30-59 4 Severe decrease in GFR 15-29 5 Kidney failure <15 (or dialysis) 8 Critical Result LACT:3.2 Called to BJ at: 22:47:43 by:[id number] Read back by:[facility] Severe Sepsis and Septic Shock Management Bundle Measure requires all lactic acids initially measuring >2.0 mmol/L be repeated. 9 >100 to <200 pg/mL: likely compensated congestive heart failure (CHF) 200 to 400 pg/mL: likely moderate CHF >400 pg/mL: likely moderate to severe CHF 10 1 sst 11 Non-immune <0.90 Equivocal 0.90 - 0.99 Immune >0.99 12 Negative <25.0 Equivocal 25.0 - 29.9 Positive >29.9 Presence of antibodies to Rubeola is presumptive evidence of immunity except when acute infection is suspected. 13 Negative <9.0 Equivocal 9.0 - 10.9 Positive >10.9 A positive result generally indicates past exposure to Mumps virus or previous vaccination. 14 FASTING 15 RESULT ROSIO'D 16 RESULT ROSIO'D 17 FASTING 18 Test Performed by: [facility] [address], [place] [address] Hand Pleater: Sosa Laughlin, Ph.D. 19 Test Performed by: [address] [address] Hand Pleater: Sosa Laughlin, Ph.D. 20 -- REFERENCE VALUE -- 25-HYDROXY D TOTAL (D2+D3) Optimum levels in the normal population are 25-80 Test Performed by: [address] [address] Hand Pleater: Jacoby Hernandez III, M.D. 21 Please note: New reference range, effective 05/06/11 NORMAL REFERENCE RANGE: GREATER THAN 4.1 NG/ML 22 Anion gap measurement may be of limited value in the presence of any alkalosis, especially in a combined acid base disorder. . 23 A metabolite of Naproxen, O-desmethylnaproxen, has been shown to interfere with the Jendrassik-Shirin method for measuring total bilirubin. Samples from patients who have taken Naproxen have shown spurious elevation in total bilirubin levels. 24 Because ethnic data is not always readily available, this report includes an eGFR for both -Americans and non- Americans. The National Kidney Disease Education Program (NKDEP) does not endorse the use of the MDRD equation for patients that are not between the ages of 18 and 70, are , have extremes of body size, muscle mass, or nutritional status, or are non- or non-. According to the National Kidney Foundation, irrespective of diagnosis, the stage of the disease is based on the level of kidney function: Stage Description GFR(mL/min/1.73 m(2)) 1 Kidney damage with normal or decreased GFR 90 2 Kidney damage with mild decrease in GFR 60-89 3 Moderate decrease in GFR 30-59 4 Severe decrease in GFR 15-29 5 Kidney failure <15 (or dialysis) 25 [id number] 26 SPLIT SPECIMEN; 2 SSTS 1 POURED OFF SERUM PROTECTED FROM LIGHT 1 EDTA PLASMA FROZEN AND PROTECTED FROM LIGHT 27 Please note reference interval change 28 Whole blood is the preferred specimen for thiamine assessment since thiamine diphosphate (TDP) is the biologically active form of the vitamin and is not measurably found in plasma. Plasma thiamine levels show only recent intake rather than body stores. Results for this test are for research purposes only by the assay's desolderer. The performance characteristics of this product have not been established. Results should not be used as a diagnostic procedure without confirmation of the diagnosis by another medically established diagnostic product or procedure. . Effective August 30, 2011 the reference interval will be changing to: 8.1 - 32.9 29 Vitamin D deficiency has been defined by the [place] of [employer] and an Endocrine Society practice guideline as a level of serum 25-OH vitamin D less than 20 ng/mL (1,2). The Endocrine Society went on to further define vitamin D insufficiency as a level between 21 and 29 ng/mL (2). 1. IOM ([place] [employer]). 2010. Dietary reference intakes for calcium and D. [place]: The National Academies Press. 2. Zuleyka MF, Gail ANGEL, Demetrice VALADEZ, et al. Evaluation, treatment, and prevention of vitamin D deficiency: an Endocrine Society clinical practice guideline. JCEM. 2010; 96(7):1911-30. . Effective July 19, 2011, Vitamin D, 25 Hydroxy specimen requirements will change to serum only. 30 result rosio'd 31 result rosio'd 32 PLEASE NOTE NEW REFERENCE RANGE. 33 Anion gap measurement may be of limited value in the presence of any alkalosis, especially in a combined acid base disorder. . 34 A metabolite of Naproxen, O-desmethylnaproxen, has been shown to interfere with the Jendrassik-Shirin method for measuring total bilirubin. Samples from patients who have taken Naproxen have shown spurious elevation in total bilirubin levels. 35 Because ethnic data is not always readily available, this report includes an eGFR for both -Americans and non- Americans. The National Kidney Disease Education Program (NKDEP) does not endorse the use of the MDRD equation for patients that are not between the ages of 18 and 70, are , have extremes of body size, muscle mass, or nutritional status, or are non- or non-. According to the National Kidney Foundation, irrespective of diagnosis, the stage of the disease is based on the level of kidney function: Stage Description GFR(mL/min/1.73 m(2)) 1 Kidney damage with normal or decreased GFR 90 2 Kidney damage with mild decrease in GFR 60-89 3 Moderate decrease in GFR 30-59 4 Severe decrease in GFR 15-29 5 Kidney failure <15 (or dialysis) 36 Lymphopenia % 37 result miquel'd 38 takes b12 supplements 39 1POUR OFF PLASMA FROM LAV TOP FROZEN AND PROTECTED BY LIGHT. 1POUR OFF SERUM PROTECTED FROM LIGHT.; 1SST 40 Whole blood is the preferred specimen for thiamine assessment since thiamine diphosphate (TDP) is the biologically active form of the vitamin and is not measurably found in plasma. Plasma thiamine levels show only recent intake rather than body stores. Results for this test are for research purposes only by the assay's desolderer. The performance characteristics of this product have not been established. Results should not be used as a diagnostic procedure without confirmation of the diagnosis by another medically established diagnostic product or procedure. 41 Vitamin D deficiency has been defined by the [place] [employer] and an Endocrine Society practice guideline as a level of serum 25-OH vitamin D less than 20 ng/mL (1,2). The Endocrine Society went on to further define vitamin D insufficiency as a level between 21 and 29 ng/mL (2). 1. IOM ([place] [employer]). 2011. Dietary reference intakes for calcium and D. [place]: The National Academies Press. 2. Zuleyka MF, Gail [place], Mary-Nikhil VALADEZ, et al. Evaluation, treatment, and prevention of vitamin D deficiency: an Endocrine Society clinical practice guideline. JCEM. 2010; 96(7):1911-30. Please note reference interval change 42 PLEASE NOTE NEW REFERENCE RANGE. 43 Please note updated reference range, effective 12/04/09 44 Anion gap measurement may be of limited value in the presence of any alkalosis, especially in a combined acid base disorder. . 45 A metabolite of Naproxen, O-desmethylnaproxen, has been shown to interfere with the Jendrassik-Shirin method for measuring total bilirubin. Samples from patients who have taken Naproxen have shown spurious elevation in total bilirubin levels. 46 Because ethnic data is not always readily available, this report includes an eGFR for both -Americans and non- Americans. The National Kidney Disease Education Program (NKDEP) does not endorse the use of the MDRD equation for patients that are not between the ages of 18 and 70, are , have extremes of body size, muscle mass, or nutritional status, or are non- or non-. According to the National Kidney Foundation, irrespective of diagnosis, the stage of the disease is based on the level of kidney function: Stage Description GFR(mL/min/1.73 m(2)) 1 Kidney damage with normal or decreased GFR 90 2 Kidney damage with mild decrease in GFR 60-89 3 Moderate decrease in GFR 30-59 4 Severe decrease in GFR 15-29 5 Kidney failure <15 (or dialysis) 47 Lymphopenia % 48 PREADMISSION TESTING SAMPLES FOR BLOOD BANK WILL BE HELD FOR 14 DAYS FROM THE DATE OF COLLECTION *IF* THE FOLLOWING CRITERIA ARE MET: 1) THE PATIENT HAS *NOT* BEEN IN THE LAST 3 MONTHS. 2) THE PATIENT HAS *NOT* BEEN TRANSFUSED IN THE LAST 3 MONTHS. PREADMISSION TESTING SAMPLES WILL *NOT* BE HELD FOR 14 DAYS FROM PATIENTS WHO IN THE LAST 3 MONTHS: 1) HAVE BEEN 2) HAVE BEEN TRANSFUSED THESE PATIENTS *MUST* BE COLLECTED WITHIN 3 DAYS OF THE SURGERY DATE. 49 FASTING 2 FROZEN POURED OFF PLASMA FROM BLUE TOP TUBES 50 . 51 INTERNATIONAL NORMALIZED RATIO(INR) INDICATIONS INR RANGE PATIENTS NOT ON ANTICOAGULANT THERAPY * DEEP VENOUS THROMBOSIS 2.0-3.0 PULMONARY EMBOLISM 2.0-3.0 ATRIAL FIBRILLATION 2.0-3.0 PROPHYLAXIS: 2.0-3.0 HIGH-RISK SURGERY TISSUE HEART VALVES ATRIAL FIBRILLATION ACUTE MYOCARDIAL INFARCTION VALVULAR HEART DISEASE MECHANICAL PROSTHETIC VALVE 2.5-3.5 * USE OF INR VALUES SHOULD BE LIMITED TO PATIENTS WHO ARE ON STABLE ORAL ANTICOAGULANT THERAPY. AN INR ABOVE 5.0-5.5 APPEARS TO BE ASSOCIATED WITH AN UNACCEPTABLY HIGH RISK OF BLEEDING. 52 ---- RUN DATE: 06/12/10 [facility] NMI LIVE PAGE 1 RUN TIME: 1037 Specimen Inquiry RUN USER: INTERFACE -- Name: TALI HOWARD Status: REG REF Re06/10/10 Age/Sex: 49/M Unit#: [id number] Location: [facility] : 62 -- Specimen: [id number] Spec Date: 06/10/[address]: Stalin cortes MD Spec Type: SURGICAL P Received: 06/10/10-0533 Copies to: Mack hunt MD SPECIMEN STOMACH ANTRAL BIOPSIES HISTORY POST-OP DIAGNOSIS: Esophagus - normal, no erosions; stomach - mild antral gastritis, duodenum - normal bulb to 3rd portion; Mild antral gastritis CLINICAL INFORMATION: Pre-op bariatric surgery; morbid obesity GROSS DESCRIPTION The specimen is received in formalin labelled Tali Howard, Stomach Antral Biopsies, and consists of multiple mitchell soft tissue fragments measuring 0.9 x 0.3 x 0.2 cm. Submitted entirely, one cassette. DIAGNOSIS Stomach, antrum, biopsies: A. Mild chronic active gastritis with Helicobacter pylori-like organisms. B. Foveolar hyperplasia with reactive epithelial changes. C. No goblet cell metaplasia or dysplasia identified. D. A confirmatory immunohistochemical stain for Helicobacter pylori-like organisms is pending and will be reported in an addendum. ADDENDUM Addendum #1 Entered: 06/12/101006 An immunohistochemical stain was performed with appropriate control for Helicobacter pylori and is negative. -- DEPARTMENT OF PATHOLOGY, [address] [place] [address] [facility] Permit #[id number] Otilio Everett M.D. Jetting Machine Operator Dir magaly -- -- RUN DATE: 06/12/10 [facility] NMI LIVE PAGE 2 RUN TIME: 1037 Specimen Inquiry RUN USER: INTERFACE -- Name: TALI HOWARD Status: REG REF Re06/10/10 Age/Sex: 49/M Unit#: [id number] Location: [facility] : 62 -- -- CONTINUED -- ADDENDUM (Continued) Addendum Review (signature on file) JAMAAL URIBE 06/12/10 -- Signed Electronically by: JUAN LUIS MAGDALENO MD 06/11/10 1442 -- -- DEPARTMENT OF PATHOLOGY, [address] [place] [address] [facility] Permit #[id number] Juan Luis Magdaleno M.D. Director Jamaal Uribe M.D. Jetting Machine Operator Dir magaly -- 53 FASTING; pour off serum 54 RESULT ROSIO'D 55 FASTING 56 result rosio'd 57 result rosio'd 58 RESULT ROSIO'D 59 RESULT ROSIO'D 60 FASTING Procedures Date CPT Code Description Status 08/08/2012 26183 Pulse Oximetry Completed 08/08/2012 76985 Nebulizer Treatment Completed 02/14/2012 Colonoscopy Completed 01/06/2012 49138 Finger Or Heel Stick Completed 11/24/2010 61198 Finger Or Heel Stick Completed 10/01/2010 29134 Electrocardiogram Complete Completed 08/27/2010 81635 Nebulizer Treatment Completed 11/14/2003 31056 Electrocardiogram Complete Completed Encounters Type Date Location Provider CPT E/M Dx Office Visit 12/14/2017 4:30p [place] [address] N39.0 K40.00 N52.2 Office Visit 11/07/2017 4:30p [place] [address] I71.4 Office Visit 07/29/2017 11:15a Main Office SUHA Stewart 14938 N39.0 Office Visit 03/24/2016 9:20a [facility] Sonia Han M.D. 38202 E11.9 F41.1 I10 Z00.00 J45.20 Z23 Office Visit 02/04/2016 1:30p [facility] Saritha Hamilton-C 11276 R68.84 Office Visit 12/03/2015 10:45a [facility] Saritha Hamilton-C 54288 F41.1 J45.20 J30.2 Z23 Office Visit 08/15/2015 9:30a [place] [address] S46.911A J06.9 Office Visit 05/02/2015 2:00p [facility] Raz De La Rosa M.D. 79080 K40.90 Office Visit 04/02/2015 8:00a Main Office Raz De La Rosa M.D. 75288 Z00.00 F41.1 J45.20 Z23 Office Visit 02/26/2015 4:00p Main Office Raz De La Rosa M.D. 13111 B34.9 F41.1 B35.4 Office Visit 07/22/2014 9:45a Main Office Gabriela Desai [facility] 90000 465.9 Office Visit 05/28/2014 11:10a [facility] Yung Bryan M.D. 60663 708.1 Office Visit 02/14/2014 4:30p Main Office Yung Bryan M.D. 54939 692.6 Office Visit 10/24/2013 2:30p Main Office Linda Avelarratna ami- 77053 692.6 Office Visit 06/27/2013 8:30a [facility] Mack Mejía M.D. 91487 300.00 790.21 493.90 Office Visit 05/17/2013 10:00a [facility] Gabriela Desai [facility] 09762 300.00 V17.49 250.00 V45.86 272.4 268.9 Office Visit 11/24/2012 1:45p [place] [address] 692.6 Office Visit 08/08/2012 11:15a Main Office Oumouivon bAebe, [facility] 14722 466.0 461.8 786.2 Office Visit 05/23/2012 3:40p Main Office Zay Candelario M.D. 81297 466.0 461.8 493.90 Office Visit 02/03/2012 9:20a Main Office Mack Mejía M.D. 53703 300.00 Office Visit 01/06/2012 8:00a Main Office Mack Mejía M.D. 95789 V70.0 250.00 493.90 300.00 V17.49 V77.91 V76.41 Office Visit 12/31/2011 1:00p Main Office Roni Solomon M.D. 13964 462 Office Visit 02/15/2011 1:10p Main Office Roni Solomon M.D. 92232 708.0 Office Visit 11/24/2010 9:40a [facility] Mack Mejía M.D. 41750 250.00 278.00 493.90 401.1 780.59 Office Visit 10/01/2010 3:00p Main Office Mack Mejía M.D. 72932 V72.83 278.00 250.00 493.90 401.1 Office Visit 08/27/2010 3:15p [facility] Gabriela Desai, [facility] 48537 493.00 Office Visit 07/21/2010 9:30a [facility] Mack Mejía M.D. 66524 250.00 278.00 401.1 787.91 493.00 Office Visit 04/30/2010 10:40a Main Office Mack Mejía M.D. 96077 719.47 278.00 250.00 401.1 780.59 Office Visit 03/19/2010 3:10p Main Office Mack Mejía M.D. 43543 V65.8 250.00 493.90 401.1 278.00 780.59 V05.3 Office Visit 12/17/2009 10:15a Main Office Saritha Hamilton-C 60295 883.0 V58.32 Office Visit 12/06/2009 11:50a Main Office Oumouelena Quintero 85837 883.0 M.DDeena Office Visit 10/06/2009 9:40a [facility] Mack Mejía M.D. 30487 250.00 493.90 401.1 278.00 272.4 Office Visit 08/13/2009 10:00a [facility] Mack Mejía M.D. 47520 465.9 493.90 250.00 401.1 Office Visit 07/30/2009 3:00p [facility] Office Mack Mejía M.D. 25973 465.9 493.90 250.00 401.1 Office Visit 07/08/2009 9:40a [facility] Office Mack Mejía M.D. 48070 493.90 250.00 401.1 278.00 272.4 V03.82 Office Visit 07/02/2009 4:10p [facility] Office Mack Mejía M.D. 66362 465.9 493.90 250.00 401.1 278.00 Office Visit 04/29/2009 10:30a [facility] Office Linda AvelarSkyla segundo 86133 465.9 493.90 Office Visit 04/08/2009 9:00a [facility] Office Mack Mejía M.D. 79382 250.00 401.1 278.00 493.90 V04.81 Office Visit 12/25/2008 10:40a [facility] Office Mack Mejía M.D. 14815 790.21 278.00 Office Visit 11/28/2008 10:20a Main Office Mack Mejía M.D. 22365 780.59 401.1 278.00 Office Visit 10/25/2008 1:00p Main Office Linda AvelarSkyla segundo 96449 401.9 Office Visit 09/26/2008 2:40p Main Office Mack Mejía M.D. 85648 401.1 Office Visit 08/27/2008 8:10a Main Office Mack Mejía M.D. 79632 784.0 780.2 401.1 493.90 600.00 Office Visit 08/15/2008 8:40a Main Office Mack Mejía M.D. 63674 401.1 493.90 727.43 780.2 Office Visit 07/25/2008 11:00a [facility] Office Zay Candelario M.D. 87431 465.9 493.90 466.0 Office Visit 2007 3:10p [facility] Office Mack Mejía M.D. 76119 465.9 493.90 Office Visit 08/25/2007 3:40p [facility] Mack Mejía M.D. 85482 466.0 493.90 Office Visit 02/02/2007 3:00p [facility] SUHA Stewart 31876 466.0 Office Visit 07/28/2006 2:40p [facility] Zay Candelario M.D. 40717 401.1 346.20 726.32 493.90 Office Visit 07/06/2006 8:40a Main Office Zay Candelario M.D. 99276 401.1 790.6 780.4 346.20 Office Visit 06/03/2006 3:20p Main Office Zay Candelario M.D. 79721 599.7 401.1 493.90 278.00 783.5 V17.3 600.00 Office Visit 04/21/2006 9:00a Main Office Saritha Mckeon 41568 465.9 490 Office Visit 03/31/2005 3:40p Main Office Zay Candelario M.D. 09337 466.0 465.9 493.90 Office Visit 03/23/2004 12:10p Main Office Zay Candelario M.D. 58774 466.0 786.2 Office Visit 03/10/2004 1:30p Main Office SUHA Stewart 71007 493.90 Office Visit 11/14/2003 10:25a Main Office Zay Candelario M.D. 72966 V77.91 278.00 V17.4 786.50 V18.0 V77.0 Office Visit 07/22/2003 2:45p Main Office SUHA Stewart 80364 465.9 783.21 Office Visit 05/23/2003 2:00p [facility] SUHA Stewart 08184 473.9 Office Visit 08/31/2001 11:00a [facility] Zay Candelario M.D. 42460 Office Visit 05/13/2000 3:00p Main Office Zay Candelario M.D. 21260 Plan of Care 01/10/2018 - Linda Soni, Afnp-CJ02.0 Streptococcal pharyngitisFollow up: Followup:. (Follow up)AllNew Medication:Azithromycin 250 mgComments:~B_~U_ Medication Management~b_~u_ Patient Understands medications he's taking? Yes No Are there Barriers to Adherence? Yes No Has the patient been asked about herbal supplements and therapies, and OTC meds? Yes No ~B_~U_Care Plan~b_~u_1. Patient has been queried about patient's goals/ preferences and functional/lifestyle goals at relevant visits. If relevant, describe: na2. Treatment goals as explained to the patient: abovesx resolution 3. Are there barriers to meeting treatment goals? Yes No If Yes, please describe:4. Self-Management goals as described to the patient: Yes No continue sx rx call inb after antibx
--- OUTSIDE RECORDS SUMMARY | 2018-01-14 13:13 | XMS REPORT ---
:1960 External Reference #:[id number] Author Organization [facility] Address [address] [place] [address] Phone [phone] Care Team Providers Name Role Phone Roni Yoo MD Care Team Information Insurance Instructor Unavailable Roni Yoo MD Primary Care Physician Unavailable Payers Type Date Identification Numbers Payment Provider Subscriber Health Maintenance Effective: Policy Number: Nicholas Tali Howard Organization (O) 05/16/2012 [id number] [facility]-[employer] Group Number: [id number] [id number] Group Name: [facility] [place] [address] PayID: [id number] Problems Date Description Provider Status Onset: 06/03/2006 [...] aortic aneurysm - fatal age 39 Father [place] age 68 Father due to Liver Cancer [...] Form Strength Qnty SIG Indications Ordering Provider Bactrim DS 12/14 Active Tablets 800-160mg 14tabs twice a N39.0 day MD Fredo Viibryd 12/14 Active Tablets 20mg 60tabs one po F41.1 bid MD Fredo Lisinopril 11/25 Active Tablets 10mg 90tabs 1 by Roni Kenzie mouth ida Yoo MD day Pepcid 11/07 Active Tablets 40mg 60tabs by mouth twice a matt Yoo MD Srinivasa Contour 03/24 Active Strips 100unit test Deena Blood Glucose /2015 s blood Vikas Yoo Strips glucose once a week - Dx: E11.9 - last seen 12/14/17 Proair HFA 04/02 Active Aerosol 108(90Bas 1units 2 puffs J45.20 /2014 e) every 4 luiz Yoo/Act hours as MD needed Albuterol 08/08 Active Nebulizer (2.5mg/3M 20Bulle dispense Roni Townsend L) 0.083% ts 1 adela Darby MD nebulize r, inhale twice a day, or up to 4 times daily if needed Flinstones Active 1 po bid Unknown Multivitamin / Aspir-Low Active Tablets DR 81mg 1 by Unknown /0000 mouth every day Carvedilol Active Tablets 25mg one po Unknown /0000 bid Hydrochlorothiaz Active Tablets 25mg one by Unknown hermes / mouth qam. Amlodipine Active Tablets 10mg 1 by Unknown Besylate / mouth every day Viibryd 03/24 Hx Tablets 40mg 90tabs Take One F41.1 Tablet [place], - By Mouth M.D. 12/14 Day Doxycycline 02/03 Hx Tablets 100mg 20tabs 1 twice R68.84 Celia Hycl a day x Lewis, - 10 days Afnp-C 02/13 Physical Therapy 08/14 Hx evaluate S46.911A and AMI Alatorre - treat Rt 12/01 shoulder pain Tramadol HCL 08/14 Hx Tablets 50mg 120tabs 1 - 2 S4. tablets AMI Alatorre - by mouth 12/01 4 x day as needed for pain Medrol (Merritt) 08/14 Hx Tablets 4mg 21tabs take as S46.1A directed AMI Alatorre - 08/21 Viibryd 04/02 [...] 07/22 Hx Suspension 50mcg/Act 1units use two J06.9 Gabriela Propionate sprays Giselle, - in each JOB ANALYST 12/02 nostril daily, as needed Prednisone 01/15 Hx Tablets 10mg 19tabs 4 by Yung A. mouth x Darlow, - 2 days, M.D. 06/06 then by mouth x 2 days, then 2 by mouth x 2 days,the n 1 by mouth x 1 day Levocetirizine 05/28 Hx Tablets 5mg 7tabs 1 by 708.1 Yung A. Dihydrochloride /2014 mouth Darlow, - every M.D. Ranitidine HCL [...] 7tabs 1 by 692.6 Yung A. Dihydrochloride /2013 mouth Darlow, - every M.D. Ranitidine HCL 02/14 Hx Tablets 300mg 7tabs 1 by 692.6 Yung A. mouth Darlow, - every M.D. Prednisone 07 Hx Tablets 20mg 13tabs 2 po qd 692.6 Nica L. x Lola helton, - then 1 M.D. 02/14 po qd x d and 1/2 po x 3 d take with food Prednisone 07 Hx Tablets 20mg 13tabs 2 po qd 692.6 Nica L. x Lola helton, - then 1 M.D. 10 po qd x d and 1/2 po x 3 d take with food Prednisone 10/24 Hx Tablets 20mg 13tabs 2 po qd 692.6 Linda x Nae helton, - then 1 Afnp-C 11/02 po qd x3 d and 1/2 po x 3 d take with food Sertraline HCL 06/27 Hx Tablets 25mg 10tabs 1 po qd 300.00 Mack A Otilio Mejía - 06/27 Sertraline HCL 06/27 Hx Tablets 50mg 90tabs 1 by F41.1 Yung A mouth Darlow, - every M.D. Srinivasa Contour 06/08 Hx 100unit test Sonia Blood Glucose /2013 s every Stan[place], Test Strips - day as M.D. 03/24 Bupropion HCL XL 05/17 Hx Tablets ER 150mg 30tabs 1 po qd 300.00 Gabriela 24HR Giselle, - JOB ANALYST 06/27 Medrol Dosepak 11/24 Hx Tablets 4mg 1pack use as 692.6 Mack . directed Otilio Mejía - 12/06 Azithromycin 08/08 Hx Tablets 500mg 13tabs 2 po x 3 461.8 Oumou /2013 days, [facility], - then 1 JOB ANALYST 11/24 per day /2012 x 7 days Cheratussin ac 08/08 Hx Syrup 100-10mg/ 100ml 5 ml 786.2 5ML every [facility], - hrs prn [facility] 11/24 cough Work Excuse 08/08 Hx excuse 466.0 from [facility], - work due [facility] 11/24 to illness until 08/08/12 through 08/10/12 Proair HFA 05/23 Hx Aerosol 108(90Bas 1units 2 Puffs J45.20 Zay Link e) mcg/ac Q Id prn Peggy Candelario M.D. 04/02 Levofloxacin 05/23 Hx Tablets 500mg 10tabs 1 po qd 461.8 Zay Link Peggy Candleario M.D. 08/08 Sertraline HCL 02/13 Hx Tablets 50mg 30tabs Take One 300.00 Mack . Tablet Otilio Mejía - By Mouth 05/17 [...] Tablets 20mg 18tabs 3 x 3 Roni Srivastava. days 2 Juanito, - x 3 days M.DDeena 12/30 1 x 3 days Proair HFA 02/04 Hx Aerosol 108(90Bas 2units Two 493.90 e) mcg/ac Inhalati Otilio Mejía - ons One Apart Every 4 Hours as Needed Ibuprofen 08/27 Hx Tablets 800mg 90tabs 1 po q8 493.00 hours Giselle, - tid with JOB ANALYST 02/15 Tussionex 08/27 Hx Syrup 10mg;8 4Oz 1 tsp q 493.00 mg/5 ML 12 hrs Giselle, - [facility] 10/01 Levaquin 08/27 Hx Tablets 500mg 10tabs 1 po qd 493.00 x 10 Giselle, - days JOB ANALYST 10/01 Xopenex 08/27 Hx Nebulizer 1.25mg/3M 1box use qd 493.00 L - qid in Giselle, - nebulize [facility] 10/01 r sob/coug h/ wheeze Nebulizer 08/27 Hx Kit 1units to use J45.20 Gabriela Kit/Tubing/Mouth /2010 with Giselle, piece - nebulize [facility] 02/03 Nebulizer 08/27 Hx Misc 1units use as J45.20 directed Giselle, - [facility] 02/03 dx: asthma lifelong Symbicort 08/27 Hx Aerosol 160-4.5mc 1units 1 puff 493.00 Giron g/Act bid Otilio Mejía - 12/30 Ibuprofen 04/30 Hx Tablets 800mg 30tabs 1 po q8 719.47 hours Otilio Mejía - tid with 08/27 food next three days then prn Actos 04/30 Hx Tablets 15mg 90tabs 1 po qd 250.00 Giron A Otilio Mejía - 04/30 Metformin HCL 04/30 Hx Tablets 1000mg 180tabs 1 po bid 250.00 Giron A Otilio Mejía - 11/24 Vivotif Candice 03/19 Hx Capsules 4caps one V65.8 DR ankit Mejía M.D. - po qod 07/21 for doses, complete more than one week before leaving Cephalexin 12/06 Hx Tablets 500mg 20tabs 1 po qid Oumou Peggy Quintero M.D. 12/17 Hydrocodone-Acet 12/06 Hx Tablets 10-500mg 100tabs 1-2 po Oumou aminophen q8 hours Peggy Quintero M.D. 12/17 for pain Ibuprofen 12/06 Hx Tablets 800mg 90tabs 1 po q8 Oumou /2010 hours donell Rascon - tid with Otilio 04/30 Advair Diskus 09/03 Hx Misc 250-50mcg 3units 1 puff /Dose bid Otilio Mejía - 11/24 Levaquin 08/13 Hx Tablets 500mg 10tabs 1 po qd 465.9 Giron Otilio Mejía - 10/06 Prednisone 08/13 Hx Tablets 20mg 8tabs 2 tabs x 493.90 Giron A. 4 days Otilio Mejía - 10/06 Contour Blood 08/02 Hx 1Month testing Oumou Test qid or Peggy Quintero M.D. 11/24 Metformin HCL 07/30 Hx Tablets 500mg 180tabs 1 po bid 250.00 Giron A. Otilio Mejía - 04/30 Prednisone 07/30 Hx Tablets 10mg 30tabs 2 bid x 493.90 Giron A. 3daysAlfonzo M.D. - then 3 08/13 qd x days, then 1 bid x 3 days then 1 qd x 3 Azithromycin 07/30 Hx Tablets 250mg 6tabs 2 po 493.90 today Otilio Mejía - and 1 po 08/13 x 4 days Mens One A Day 07/02 Hx [facility] 11/24 [facility] [place] Niacin 07/02 Hx Tablets 500mg 1 po qd [facility] 07/08 Of Levaquin 07/02 Hx Tablets 750mg 5tabs 1 qd x 465.9 . 5d Otilio Mejía - 07/30 Prednisone 07/02 Hx Tablets 10mg 30tabs 2 bid x 493.90 3daysAlfonzo M.D. - then 3 07/30 qd x days, then 1 bid x 3 days then 1 qd x 3 Tussionex 07/02 Hx Syrup 10mg;8 4Oz 1 tsp q 466.0 mg/5 ML 12 hrs Otilio Mejía - 10/06 Proair HFA 04/09 Hx Aerosol 90mcg/ac 1units 2 puffs 493.90 Mack Deena every Otilio Mejía - four 02/04 hours prn sob or wheezing Metformin HCL 04/08 Hx Tablets 500mg 90tabs 1 po 250.00 Mack . daily Otilio Mejía - 07/30 Cozaar 10/25 Hx Tablets 50mg 90tabs 1 po qd 401.1 . Otilio Mejía - 11/24 Cozaar 09/26 Hx Tablets 25mg 30tabs 1 po qd 401.1 Nae - Afnp-C 10/25 Zithromax 07/25 Hx Tablets 250mg 6Tabs 2 po qd today , Nae, - then 1 Afnp-C 05/04 po qd times 4 Tussionex 08/31 Hx Liquid ER (8/10/5ML 120ml 5ml po q 465.9 Zay Bunchkinetic /2007 ) 12 hours Midura, Extended Release - M.D. 08/15 Robitussin A-C 08/24 Hx 80ml 1-2 tsp 466.0 Giron . po q4h Otilio Mejía - prn 07/25 cough Zithromax 08/24 Hx Tablets 250mg 6Tabs 2 po qd 466.0 Giron today , Otilio Mejía - then 1 07/25 po qd /2008 times 4 Prednisone 08/24 Hx Tablets 20mg 21tabs 3 tabs x 493.90 Giron A 3 days, Otilio Mejía - then 2 07/25 tabs x 3 days then 1 tab x 3 days then 1/ tab for three days Albuterol 08/24 Hx Aerosol 90mcg/Act 1Mdi 2 puffs 493.90 q4hrs Otilio Mejía - prn 04/09 Zithromax 02/02 Hx Capsules 250mg 11caps 2 tabs 466.0 Gabriela po x1, Giselle, - then 1 JOB ANALYST 08/24 tab po qd x 9 more days Tussionex 02/02 Hx Syrup 10mg;8 4Oz 1 TSP Q 466.0 mg/5 ML 12 HRS Giselle, - JOB ANALYST 08/24 Percocet 02/02 Hx Tablets 10mg;325 30tabs 1 PO Q Gabriela /2006 mg 4-5 Giselle, - Hours JOB ANALYST 08/24 prn Lisinopril 07/06 Hx Tablets 5mg 30tabs 1 po qd 401.1 Giron A. Otilio Mejía - 09/26 Topomax 07/06 Hx 25mg 60units 1 at hs Zay T. /2006 for 1 Midura, - week M.D. 08/24 then at hS Zithromax 04/21 Hx Capsules 250mg 6caps 2 Tabs Linda PO X1, [place], - Then 1 Afnp-C 04/26 Tab PO qd X 4 More Days Albuterol Mdi 04/21 Hx 1units 2 puffs Zay T. /2005 q 4hr Midura, - prn M.D. 03/12 cough wheeze Mucinex 03/31 Hx 0units 600 MG 1-2 PO [facility] - bid [facility] 04/21 [place] Levaquin 03/31 Hx Tablets 500mg 10tabs 1 PO qd Zay T. /2004 Andree - M.DDeena 04/21 Medrol Dosepack 03/31 Hx 4mg 1units as Zay T. Directed Andree - M.DDeena 08/27 Quinamn 03/31 Hx 260mg 60units 1-2 po Zay T. /2004 bid prn Andree, - Leg M.DDeena 04/21 Cramps Levaquin 03/23 Hx 500mg 10units 1 qd Zay T. Andree, - Joel.Juana 03/31 Tussionex 03/23 Hx 100ml 1 tsp Zay T. q12h prn Andree - M.Juana 03/31 Zithromax 03/10 Hx 250mg 6units 2 tabs Gabriela day 1 Giselle, - JOB ANALYST 03/23 1 tab qd days 2 thru 5 Humibid LA 03/10 Hx 60units 1 bid Gabriela Giselle, - JOB ANALYST 03/31 Advair Discus 03/10 Hx 100/50 Sample one inhalati Giselle, - on twice JOB ANALYST 03/23 Zithromax 07/21 Hx 250mg 6units 2 Tabs Gabriela Day 1 Giselle, - JOB ANALYST 11/12 1 Tab qd Days 2 Thru 5 Entex-LA 07/21 Hx 20units 1 PO bid Gabriela (Without Ppa) prn Giselle, - JOB ANALYST 11/12 Plegine 07/21 Hx 35mg 180unit 1-2 tid Gabriela s Giselle, - JOB ANALYST 03/31 Zithromax 05/23 Hx 250mg 6units 2 tabs Gabriela day 1 Giselle, - JOB ANALYST 07/21 1 tab qd days 2 thru 5 Claritin D 24HR 05/23 Hx 90units 1qd Giselle, - JOB ANALYST 11/12 Meridia 05/23 Hx 10mg 30units one qd Gabriela Giselle, - JOB ANALYST 07/21 Liat-D 08/31 Hx 60units 1 po bid Zay T. prn for Midura, - allergy M.D. 05/23 [...] M.D. 03/19 qd X3D, 3T QDX 3D, 0ATUE3A, 1T QDX 2D And D/C Claritin D 24 HR 03/19 Hx 30units One PO qd Giselle, - JOB ANALYST 04/18 Prednisone 03/19 Hx 10mg 5 Tabs PO qd X Giselle, - 2 D, 4T JOB ANALYST 03/31 qd X3D, 3T QDX 3D, 5LSAN0Q, 1T QDX 2D And D/C Ciprofloxacin 06/19 Hx 500mg 20units 1 PO bid Zay T. Midura, - M.D. 03/09 Medrol 06/19 Hx Dose Pack 1units as Zay T. Directed Midura, - M.D. 03/09 Zithromax 06/05 Hx 250mg 6units 2 Tabs Celia Day 1 Lewis, - Afnp-C 06/10 1 Tab qd Days 2 Thru 5 Robitussin ac 06/05 Hx 4Oz 1-2 TSP Celia PO Q4H Lewis, - prn Afnp-C 06/15 Entex Pse 06/05 Hx 20units 1 bid Celia prn Lewis, - [place] Afnp-C 06/15 Liat-D 10/28 Hx 60units 1 PO bid Zya T. prn For Midura, - Allergy M.D. 08/31 Zithromax 10/09 Hx Tabs 250mg 6tabs 2 Tabs Vincenzo F. /1997 Day 1 Qeu - M.D. 10/14 1 Tab qd Days 2 Thru 5 Proventil 10/09 Hx Mdi 1units Two Vincenzo F. Puffs Q [place], - 4H prn M.DDeena 03/09 Cough Wheezing Niacin Hx Tablets ER 500mg 1 tab qd Giron A. /0000 Otilio Mejía - 10/06 Hydrocodone-Acet Hx Tablets 5-325mg 30tabs 1-2 q 6 Unknown aminophen hrs prn - pain 12/[address] 81mg 1 po qd Unknown /0000 - 11/24 Vitamin C Hx Tablets 1000mg qd Unknown /0000 - 02/03 Vitamin B12 Hx Tablets ER 1000mcg 2 po qd Unknown /0000 - 02/03 Multivitamins 00/00 Hx Tablets 90tabs 1 po qd Unknown /0000 - 12/30 Biotin Hx Capsules 5000mcg 1 po qd Unknown /0000 - 07/21 Calcium Citrate Hx Tablets 250mg 2 petite Unknown /0000 tabs sd - 12/14 Bactrim Hx Tablets 400-80mg use Unknown /0000 twice a - day 12/14 Prevacid Hx Capsules 15mg 1 by Unknown /0000 DR mouth - every 11/07 day acid reflux as needed Immunizations CPT Code Status Date Vaccine Lot # [id number] Given 01/28/2017 Influenza Vac, [place] [id number] Given 03/24/2016 Influenza Vac, Quadrivalent, Slit Virus, Im [id number] 19128 Given 12/03/2015 Tdap Tetanus, W Pertussis [id number] 57560 Given 12/03/2015 Hep A Adlt Immunization [id number] 66725 Given 04/02/2015 Influenza Vac, Quadrivalent, Slit Virus, Im [id number] 54113 Given 04/30/2010 Hepatitis B Immunization, adult dosage, for [id number] intramuscular use 07103 Given 03/19/2010 Hep A Adlt Immunization [id number] 91102 Given 07/08/2009 Pneumococcal Immunization [id number] 85941 Given 04/08/2009 H1N1 Virus Vaccine [id number] 81455 Given 04/08/2009 H1N1 Immunization Intramuscular/Intranasal W Counseling Vital Signs Date Vital Result Comment 12/14/2017 BP Systolic 112 mmHg BP Diastolic [...] Test Date Test Result H/L Range Note Ua - Micro (Fma) 12/14/2017 Appearance CLOUDY [...] finding 10/19/2017 Troponin I 0.00 ng/mL <0.04 CBC Auto Diff 10/10/2017 White Blood Count [...] 0-2 Nucleated Red Blood Cells % 0 Inr/Protime 10/10/2017 Inr 0.98 0.77-1.02 Laboratory test finding 10/10/2017 Partial Thrombo Time 38.4 seconds High 26.0-36.3 PTT Lactic Acid 3.2 mmol/L High 0.5-2.0 1 B-Type Natriuretic Peptide BNP 10 pg/mL 2 Comp Metabolic Panel 10/10/2017 Sodium 136 mmol/L [...] Egfr Non- 81.0 >60 Egfr 104.2 >60 3 Laboratory test finding 10/10/2017 Magnesium 2.1 mg/dL 1.9-2.7 Creatine Kinase(CK) 85 U/L 10-223 Troponin I 0.00 ng/mL <0.04 Amylase 51 U/L 29-103 Lipase 24 U/L 11.0-82.0 C Reactive Protein < 1.00 mg/L < 5.00 4 Ua - Non Micro (Fma) 08/11/2017 Appearance clear Color yellow Glucose, Urine (Fma/CMC/CTX) 100mg/dl High know diabetic Bilirubin neg Ketones neg SP Grav 1.015 Blood neg PH 7.0 Protein neg Urobil 0.2 Nitrite neg Leukocytes (Fma/CMC/Centrex) neg Measles/Mumps/Rubella 09/21/2016 Rubella >33.00 index Immune 5, 6 Immunity Antibodies, IgG >0.99 Rubeola Ab, IgG >300.0 AU/mL Immune >29.9 5, 7 Mumps Abs, IgG 24.3 AU/mL Immune >10.9 5, 8 Laboratory test finding 03/24/2016 Hemoglobin A1c (Fma) 5.7 % 4.1-5.7 Complete Blood Count 03/24/2016 WBC 9.5 x10^3/UL 3.6-9.6 RBC 5.08 x10^6/UL 3.90-5.70 HGB 15.2 g/dL 12.1-17.2 HCT 45 % 36-50 MCV 88.0 fL 82.2-97.4 MCH 29.9 pg 27.6-33.3 MCHC 34.2 g/dL 33.0-35.5 RDW 14.3 % High 11.6-13.7 PLT 286 x10^3/UL 150-400 MPV 6.2 fL Low 7.4-10.4 Gran # 7.7 x10^3/UL High 1.5-7.2 Lymph# 1.5 x10^3/UL 0.7-4.9 [place]# 0.3 x10^3/UL 0.1-0.9 Gran % 80.3 % High 42.2-75.2 Lymph % 16.2 % Low 20.5-51.1 [place]% 3.5 % 1.7-9.3 Laboratory test finding 03/24/2016 PSA 0.3 ng/mL 0.0-4.0 Lipid Profile 03/24/2016 Cholesterol 138 mg/dL 120-200 Triglycerides 47 mg/dL 30-200 HDL Cholesterol 51 mg/dL 30-70 LDL (Calculated) 78 CALC 0-129 VLDL Cholesterol 9 mg/dL 0-50 HDL Risk Factor 2.7 CALC 0.0-4.4 Laboratory test finding 03/24/2016 TSH 1.06 mIU/L 0.50-6.00 Comprehensive Metabolic Prof 03/24/2016 Sodium 141 mEq/L [...] >60 ml/min/1.73m^ >=60 GFR >60 ml/min/1.73m^ >=60 Comprehensive Metabolic Prof 03/21/2015 Sodium 136 mEq/L [...] 3.9 x10^3/UL 1.5-7.2 Lymph# 1.8 x10^3/UL 0.7-4.9 [place]# 0.4 x10^3/UL 0.1-0.9 Gran % 62.3 % 42.2-75.2 Lymph % 30.0 % 20.5-51.1 [place]% 7.7 % 1.7-9.3 Laboratory test finding 03/21/2015 PSA 0.4 ng/mL 0.0-4.0 9 Laboratory test finding 07/22/2014 Quickstrep neg Negative Throat - Beta Strep Fma NEG@48HRS Laboratory test finding 05/17/2013 B12 789 pg/mL 230-1050 Folate 6.41 ng/mL 3.00-16.00 Vitamin D25 35.3 ng/mL 30.0-100.0 Ferritin 69 ng/mL 22-415 Lipid Profile 05/17/2013 Cholesterol 150 mg/dL 120-200 HDL 36 mg/dL 30-70 Triglycerides 84 mg/dL 30-200 HDL Risk Factor 4.2 CALC 0.0-4.4 LDL (Calculated) 98 CALC 0-129 VLDL (Calculated) 17 mg/dL 0-50 Comprehensive Metabolic Prof 05/17/2013 Albumin 4.8 g/dL 3.8-5.5 Alk. Phos. 102 U/L High 22-95 Alt [...] Calc 0.6-2.3 BUN/Creat Ratio 16.1 Calc 8.0-36.0 Laboratory test finding 05/17/2013 Hemoglobin A1c (a/CMC,CX) 5.8 % High 4.1-5.7 CBC Electronic ([facility]) 05/17/2013 WBC 6.6 3.6-9.6 RBC 5.71 High 3.90-5.70 Hemoglobin (a/CMC/CTX) 16.9 g/dL 12.1 - 17.2 Hematocrit (a/CMC/CTX) 51.7 % High 36.1 - 50.3 Platelets 220 10^3/ul 150-400 Lymph% 23.3 20.5-51.1 Mixed% 5.6 Neutrophils % 71.1 Mean Corpuscular Vol 90 82.2-97.4 Mean Corpuscular Hemoglobin 29.6 27.6-33.3 Mean Corpuscular Hemo Concen 32.7 32.0-36.0 RDW 11.4 Low 11.6-13.7 Mean Platelet Volume 6.3 Low 6.5-11.0 Laboratory test finding 01/06/2012 Hemoglobin A1c (a/CMC,CX) 5.5 % 4.1- 5.7 Ua - Non Micro ([facility]) 01/06/2012 Appearance clear Color yellow Glucose neg Bilirubin neg Ketones neg SP Grav 1.020 Blood neg PH 6.0 Protein neg Urobil 0.2 Nitrite neg Leukocytes (a/CMC/Centrex) neg Laboratory test finding 12/31/2011 Quickstrep negative Negative Comprehensive Metabolic Prof 12/31/2011 Albumin 4.4 g/dL 3.8-5.5 Alk. Phos. 103 U/L High 22-95 10 Alt (SGPT) 28 U/L 10-40 Ast (Sgot) [...] Profile 12/31/2011 Cholesterol 110 mg/dL Low 120-200 11 HDL 38 mg/dL 30-70 Triglycerides 50 mg/dL 30-200 HDL Risk Factor 2.9 CALC 0.0-4.0 LDL (Calculated) 63 CALC 0-129 VLDL (Calculated) 10 mg/dL 0-50 Laboratory test finding 12/31/2011 PSA 0.30 ng/mL 0.00-4.00 Laboratory test finding 11/29/2011 Vitamin B1 Whole 151 nmol/L 70-180 12 , 13 Blood Vitamin E 6.9 mg/L 5.5 - 17.0 12, 14 Vitamin D, 25 Hydroxy 11/29/2011 25-Hydroxy Vitamin D2 <4.0 ng/mL () 12 25-Hydroxy Vitamin D3 26 ng/mL () 12 25-Hydroxy Vitamin D Total 26 ng/mL () 12, 15 Laboratory test finding 11/29/2011 Ferritin 186 NG/ML 24-336 12 Vitamin B12 > 1500 pg/mL High 180-914 12 Folic Acid > 25.8 NG/ML See Below 12, 16 Iron & Iron Binding Capacity 11/29/2011 Iron Total 165 g/dL 45-182 12 Unsaturated Iron Binding 141 g/dL 12 Total Iron Binding Capacity 306 g/dL 250-450 12 % Iron Saturation 54 % 15-55 12 Comp Metabolic Panel 11/29/2011 Sodium 138 mmol/L 135-145 12 Potassium 4.4 mmol/L 3.5-5.0 12 Chloride 107 mmol/L 101-111 12 Co2 (Carbon Dioxide) 28.0 mmol/L 22-32 12 Anion Gap 3.0 mmol/L 2-11 12, 17 Glucose 93 mg/dL 70-100 12 BUN 22 mg/dL 6-24 12 Creatinine 0.9 mg/dL 0.50-1.40 12 One Over Creatinine 1.11 12 BUN/Creatinine Ratio 24.4 High 8-20 12 Calcium 9.5 mg/dL 8.1-9.9 12 Total Protein 6.7 GM/DL 6.2-8.1 12 Albumin 4.1 GM/DL 3.6-5.4 12 Globulin 2.6 GM/DL 2-4 12 Albumin/Globulin Ratio 1.6 1-3 12 Bilirubin Total 1.0 mg/dL 0.4-1.5 12, 18 Alkaline Phosphatase 73 U/L 39-117 12 Alt (SGPT) 39 U/L 17-63 12 Ast (Sgot) 27 U/L 12-42 12 eGFR Non- 89.3 > 60 12 eGFR 114.9 > 60 12, 19 CBC Auto Diff 11/29/2011 White Blood Count 5.9 CUMM 4.8-10.8 12 Red Cell Count 4.64 CUMM 4.6-6.2 12 Hemoglobin 14.9 g/dL 14.0-18.0 12 Hematocrit 42 % 42-52 12 Mean Corpuscular Volume 90 um3 80-94 12 Mean Corpuscular Hemoglob 32 pg High 27-31 12 Mean Corpuscular HGB Cone 36 g/dL 32-36 12 Redcell Distribution WDTH 13 % 10.5-15 12 Platelet Count 162 CUMM 150-450 12 Mean Platelet Volume 8.3 um3 7.4-10.4 12 Gran % 58.8 % 38-83 12 Lymph % 30.6 % 20-45 12 Mononuclear % 8.4 % 1-9 12 Eosinophil % 1.9 % 0-6 12 Basophil % 0.3 % 0-2 12 Abs Lymphs 1.8 1.0-4.8 12 Abs Mononuclear 0.5 0-0.8 12 Absolute Neutrophil Count 3.5 1.5-7.7 12 Abs Eosinophils 0.1 0-0.6 12 Abs Basophils 0 0-0.2 12 Comments 1 12, 20 Laboratory test finding 07/30/2011 Vitamin E, Serum 9.7 mg/L 4.6-17.8 21 , 22 Iron/Tibc,%Sat Group 07/30/2011 Iron 64 g/dL 46-155 21 Total Iron Binding Cap. 319 g/dL 250-450 21 % Iron Saturation 20.1 % 13.0-45.0 21 Laboratory test finding 07/30/2011 Vitamin B1, Plasma 22.9 nmol/L 5.2- 76.1 21, 23 Vitamin D, 25 Oh 30.0 ng/mL 30.0-100.0 21, 24 CBC Electronic (Fma) 07/30/2011 WBC 7.5 3.6-9.6 RBC 5.03 3.90-5.70 [...] 3.8-5.5 Alk. Phos. 103 U/L High 22-95 25 Alt (SGPT) 39 U/L 10-40 Ast (Sgot) 29 U/L 5-34 BUN 15 mg/dL 6-26 Calcium 9.8 mg/dL 8.6-10.2 Chloride 100 mEq/L 94-112 Creatinine 1.0 mg/dL 0.6-1.4 Carbon Dioxide 28 mEq/L 21-32 Glucose 107 mg/dL High 70-105 26 Sodium 137 mEq/L 134-149 Total Bilirubin 0.4 mg/dL 0.2-1.3 Total Protein 7.4 g/dL 6.3-8.1 Potassium 4.1 mEq/L 3.6-5.5 Globulin 2.5 g/dL 2.0-4.8 A/G Ratio 1.9 Calc 0.6-2.2 BUN/Creat Ratio 14.9 Calc 8.0-36.0 Laboratory test finding 06/14/2011 Amylase 44 U/L 20-120 27 Lipase 26 U/L 22-51 C Reactive Protein 0.5 mg/dL Less Than 0.5 Comp Metabolic Panel 06/14/2011 Sodium 139 mmol/L 135-145 Potassium 4.7 mmol/L 3.5-5.0 Chloride 101 mmol/L 101-111 Co2 (Carbon Dioxide) 30.0 mmol/L 22-32 Anion Gap 8.0 mmol/L 2-11 28 Glucose 102 mg/dL High 70-100 BUN 13 mg/dL 6-24 Creatinine 0.8 mg/dL 0.50-1.40 One Over Creatinine 1.25 BUN/Creatinine Ratio 16.3 8-20 Calcium 9.5 mg/dL 8.1-9.9 Total Protein 7.3 GM/DL 6.2-8.1 Albumin 4.7 GM/DL 3.6-5.4 Globulin 2.6 GM/DL 2-4 Albumin/Globulin Ratio 1.8 1-3 Bilirubin Total 0.8 mg/dL 0.4-1.5 29 Alkaline Phosphatase 96 U/L 39-117 Alt (SGPT) 35 U/L 17-63 Ast (Sgot) 28 U/L 12-42 eGFR Non- 102.7 > 60 eGFR 132.1 > 60 30 Manual Differential 06/14/2011 Polysegmented Neutrophil 76 % [...] 150-450 Mean Platelet Volume 8.3 um3 7.4-10.4 31 Comprehensive Metabolic Prof 04/19/2011 Albumin 4.5 g/dL 3.8-5.5 Alk. Phos. 110 U/L High 22-95 32 Alt (SGPT) 20 U/L 10-40 Ast (Sgot) [...] 04/19/2011 B12 > 2100 pg/mL High 230-1050 33 Folate >22.00 ng/mL High 3.00-16.00 Ferritin 115 ng/mL 22-415 Laboratory test finding 04/19/2011 Vitamin B1, Plasma 50.1 nmol/L 5.2- 76.1 34, 35 Vitamin E, Serum 12.8 mg/L 3.0-15.8 34 Iron/Tibc,%Sat Group 04/19/2011 Iron 90 g/dL 46-155 34 Total Iron Binding Cap. 303 g/dL 250-450 34 % Iron Saturation 29.7 % 13.0-45.0 34 Laboratory test finding 04/19/2011 Vitamin D, 25 Oh 26.4 ng/mL Low 30.0- 100.0 34, 36 CBC Electronic ([facility]) 04/19/2011 WBC 7.2 3.6-9.6 RBC 4.57 3.90-5.70 [...] test finding 01/14/2011 Amylase 40 U/L 20-120 37 Lipase 35 U/L 22-51 Liver Function Panel 01/14/2011 Bilirubin Direct 0.5 mg/dL 0.1-0.5 Indirect Bilirubin 1.4 mg/dL High 0.3-1.0 38 Comp Metabolic Panel 01/14/2011 Sodium 138 mmol/L 135-145 Potassium 4.1 mmol/L 3.5-5.0 Chloride 101 mmol/L 101-111 Co2 (Carbon Dioxide) 27.0 mmol/L 22-32 Anion Gap 10.0 mmol/L 2-11 39 Glucose 101 mg/dL High 70-100 BUN 12 mg/dL 6-24 Creatinine 0.9 mg/dL 0.50-1.40 One Over Creatinine 1.11 BUN/Creatinine Ratio 13.3 8-20 Calcium 9.6 mg/dL 8.1-9.9 Total Protein 7.8 GM/DL 6.2-8.1 Albumin 4.7 GM/DL 3.6-5.4 Globulin 3.1 GM/DL 2-4 Albumin/Globulin Ratio 1.5 1-3 Bilirubin Total 1.9 mg/dL High 0.4-1.5 40 Alkaline Phosphatase 73 U/L 39-117 Alt (SGPT) 30 U/L 17-63 Ast (Sgot) 29 U/L 12-42 eGFR Non- 89.7 > 60 eGFR 115.3 > 60 41 CBC Auto Diff 01/14/2011 White Blood Count [...] Eosinophils 0.1 0-0.6 Abs Basophils 0 0-0.2 42 Laboratory test finding 01/14/2011 Clotest NEGATIVE Laboratory test finding 11/24/2010 Hemoglobin A1c 5.8 % High 4.1-5.7 (a/CMC,CX) Type & Screen 11/10/2010 Patient Blood Type A NEGATIVE Antibody Screen NEGATIVE Type And Screen 10/27/2010 Patient Blood Type A NEGATIVE Antibody Screen NEGATIVE Specimen Discard Date 11/10/10 43 Basic Metabolic Profile 10/01/2010 BUN 19 mg/dL 6-26 Calcium 9.9 mg/dL 8.6-10.2 Chloride 102 mEq/L 94-112 Creatinine 1.1 mg/dL 0.6-1.4 Carbon Dioxide 28 mEq/L 21-32 Glucose 103 mg/dL 70-105 Sodium 137 mEq/L 134-149 Potassium 4.5 mEq/L 3.6-5.5 BUN/Creat Ratio 18.2 Calc 8.0-36.0 CBC Electronic ([facility]) 10/01/2010 WBC 11.7 High 3.6-9.6 RBC 5.31 3.90-5.70 Hemoglobin ([facility]/CMC/CTX) 15.4 g/dL 12.1 - 17.2 Hematocrit (a/CMC/CTX) 45.7 % 36.1 - 50.3 Platelets 259 10^3/ul 150-400 Lymph% 18.4 Low 20.5-51.1 Mixed% 2.7 Neutrophils % 78.9 Mean Corpuscular Vol 86.1 82.2-97.4 Mean Corpuscular Hemoglobin 29.0 27.6-33.3 Mean Corpuscular Hemo Concen 33.7 32.0-36.0 RDW 14.0 High 11.6-13.7 Mean Platelet Volume 9.6 6.5-11.0 PT + PTT No Therpy/Unkn 10/01/2010 PTT 32.7 seconds 23.7-35.5 44 PT (No Therapy/Unknown) 13.1 seconds 11.7-14.5 44, 45 Inr 1.0 44, 46 Laboratory test 07/21/2010 Hemoglobin A1c 6.5 % High 4.1-5.7 finding (a/CMC,CX) Surgical Pathology 06/10/2010 Surgical Pathology 47 - <SEE NOTE> Laboratory test 06/10/2010 Clotest POSITIVE finding Laboratory test 05/29/2010 Cortisol (Am) 12.8 g/dL 4.3-22.4 48 finding Laboratory test 05/29/2010 TSH 4.26 mIU/L 0.50-6.00 finding Comprehensive 05/29/2010 Albumin 4.8 g/dL 3.8-5.5 Metabolic Prof Alk. Phos. 58 U/L 22-95 Alt (SGPT) 24 U/L 10-40 Ast (Sgot) 19 U/L 5-34 BUN 21 mg/dL 6-26 Calcium 10.2 mg/dL 8.6-10.2 Chloride 102 mEq/L 94-112 Creatinine 0.9 mg/dL 0.6-1.4 Carbon Dioxide 26 mEq/L 21-32 Glucose 122 mg/dL High 70-105 49 Sodium 136 mEq/L 134-149 Total Bilirubin 0.4 mg/dL 0.2-1.3 Total Protein 7.6 g/dL 6.3-8.1 Potassium 4.1 mEq/L 3.6-5.5 Globulin 2.8 g/dL 2.0-4.8 A/G Ratio 1.7 Calc 0.6-2.2 BUN/Creat Ratio 22.6 Calc 8.0-36.0 Laboratory test finding 04/30/2010 Sed Rate (a/CMC/[facility]) 9mm CBC ([facility]) 04/30/2010 WBC 9.2 3.6-9.6 RBC 5.44 3.90-5.70 Hemoglobin (a/CMC/CTX) 14.8 g/dL 12.1 - 17.2 Hematocrit (a/CMC/CTX) 45.8 % 36.1 - 50.3 Platelets 250 10^3/ul 150-400 Lymph% 19.9 Low 20.5-51.1 Mixed% 5.6 Neutrophils % 74.5 Mean Corpuscular Vol 84 82.2-97.4 Mean Corpuscular Hemoglobin 27.2 Low 27.6-33.3 Mean Corpuscular Hemo Concen 32.3 32.0-36.0 RDW 12.6 11.6-13.7 Mean Platelet Volume 7.9 6.5-11.0 Laboratory test finding 04/30/2010 Uric Acid 7.5 mg/dL 2.5-9.2 50 Laboratory test finding 10/06/2009 Alpha 1 Antitrypsin,Ser 97 mg/dL 90- 200 Lipid Profile 10/06/2009 Cholesterol 133 mg/dL 120-200 HDL 28 mg/dL Low 30-70 51 Triglycerides 116 mg/dL 30-200 HDL Risk Factor [...] mEq/L 21-32 Glucose 122 mg/dL High 70-105 52 Sodium 141 mEq/L 134-149 Total Bilirubin 0.3 mg/dL 0.2-1.3 Total Protein 7.5 g/dL 6.3-8.1 Potassium 4.6 mEq/L 3.6-5.5 Globulin 2.9 g/dL 2.0-4.8 A/G Ratio 1.6 Calc 0.6-2.2 BUN/Creat Ratio 13.5 Calc 8.0-36.0 Laboratory test finding 10/06/2009 Hemoglobin A1c 6.6 % High 4.1-5.7 ([place] [place] Laboratory test finding 07/30/2009 Hemoglobin A1c 6.8 % High 4.1-5.7 (a[place] [place] Laboratory test finding 04/16/2009 Hemoglobin A1c 6.9 % High 4.1-5.7 (a[place] [place] Comprehensive Metabolic 04/16/2009 Glucose 146 mg/dL High 70-105 53 Prof BUN 22 mg/dL 6-26 Creatinine 1.0 [...] mg/dL 120-200 HDL 26 mg/dL Low 30-70 54 Triglycerides 222 mg/dL High 30-200 HDL Risk Factor 4.9 CALC 4.2-7.0 LDL (Calculated) 56 CALC 0-129 VLDL (Calculated) 44 mg/dL 0-50 Laboratory test finding 12/25/2008 Hemoglobin A1c 7.0 % High 4.1-5.7 (a[place] [place] Comprehensive Metabolic 11/28/2008 Albumin 4.4 g/dL 3.8-5.5 55 Prof Alk. Phos. 65 U/L - 55 Alt (SGPT) 28 U/L 10-40 55 Ast (Sgot) 25 U/L 5-34 55 BUN 17 mg/dL 6-26 55 Calcium 9.7 mg/dL 8.6-10.2 55 Chloride 99 mEq/L 94-112 55 Creatinine 1.0 mg/dL 0.6-1.4 55 Carbon Dioxide 28 mEq/L 21-32 55 Glucose 117 mg/dL High 70-105 55 Sodium 137 mEq/L 134-149 55 Total Bilirubin 0.5 mg/dL 0.2-1.3 55 Total Protein 7.5 g/dL 6.3-8.1 55 Potassium 4.4 mEq/L 3.6-5.5 55 Globulin 3.1 g/dL 2.0-4.8 55 A/G Ratio 1.4 Calc 0.6-2.2 55 BUN/Creat Ratio 16.3 Calc 8.0-36.0 55 Comprehensive Metabolic Prof 06/04/2006 Albumin 4.6 g/dL 3.8-5.5 55 Alk. Phos. 63 U/L 22-95 55 Alt (SGPT) 24 U/L 10-40 55 Ast (Sgot) 20 U/L 5-34 55 BUN 14 mg/dL 6-26 55 Calcium 9.6 mg/dL 8.6-10.2 55 Chloride 102 mEq/L 94-112 55 Creatinine 1.0 mg/dL 0.6-1.4 55 Carbon Dioxide 29 mEq/L 21-32 55 Glucose 126 mg/dL High 70-105 55 Sodium 140 mEq/L 134-149 55 Total Bilirubin 0.6 mg/dL 0.2-1.3 55 Total Protein 8.1 g/dL 6.3-8.1 55 Potassium 4.7 mEq/L 3.6-5.5 55 Globulin 3.4 g/dL 2.0-4.8 55 A/G Ratio 1.3 Calc 0.6-2.2 55 BUN/Creat Ratio 14.0 Calc 8.0-36.0 55 Lipid Profile 06/04/2006 Cholesterol 131 mg/dL 120-200 55 HDL 26 mg/dL Low 30-70 55 Triglycerides 137 mg/dL 30-200 55 HDL Risk Factor 5.0 CALC 4.2-7.0 55 LDL (Calculated) 77 CALC 0-129 55 VLDL (Calculated) 27 mg/dL 0-50 55 Laboratory test finding 06/04/2006 PSA 0.27 ng/mL 0.00-4.00 55 Ua - Micro (Fma) 06/03/2006 Appearance CLEAR Color YELLOW Glucose NEG Bilirubin NEG Ketones TRACE SP Grav >=1.030 Blood 1+ PH 5.0 Protein, Random Urine SSA NEG Urobil 0.2 Nitrite NEG Leukocytes (Fma/CMC/[facility]rex) NEG Hyaline - /Lpf Granular - /Lpf WBC (Fma,Centrex) 0-3 RBC, Fluid 3-5 Mucus - /Lpf Epith RARE /Lpf Bacteria TRACE /Hpf Amorphous - /Lpf Crystals, Urine (Fma/CMC/CTX) - /Lpf Misc - Comp Metabolic ([facility]) 11/14/2003 Glucose, Serum (a/CMC/CTX) 100 mg/dL 70 -118 BUN (a/CMC/[facility]rex) 22 mg/dL 6-26 Creatinine (Fma/CMC/CTX) 0.9 mg/dL 0.6-1.4 BUN/Creatinin Ratio 25.3 8.0-36 Sodium 134 134-149 Potassium 4.3 3.6-5.5 Chloride 94 mEq/L 94-112 Co2 24 21-32 Calcium (Fma/CMC/[facility]rex) 9.3 mg/dL 8.6-10.0 Total Protein 7.8 g/dL 6.3-8.1 Albumin ([facility]) 4.4 3.8-5.5 Globulin 3.3 2.0-4.8 A/G Ratio (a/[facility] [place]) 1.3 0.6-2.2 Alkaline Phosphatase (F/C/CTX) 54 U/L 30-110 Alt (SGPT) 22 10-40 Ast (Sgot) (a/CMC/[facility]) 18 U/mL 5-34 Bilirubin, Total 0.9 mg/dL 0.2-1.3 Lipid Profile ([facility]) 11/14/2003 Cholesterol 157 mg/dL 120-200 Triglyceride 189 mg/dL 30-200 HDL-Chol 31 30-85 LDL, Calculated ([facility] [place] 88 CALC 0-129 VLDL 38 0-50 HDL Risk Factor ([facility]) 5.0 CALC 4.2-7.0 Free T4/TSH 11/14/2003 TSH ([facility] [place]) 1.41 uIU/ml 0.5-6.0 ([facility] [place]) Free T4 0.99 ng/dL 0.75-1.54 Comp Metabolic ([facility]) 10/16/1999 Albumin 4.5 GM/DL 3.80 - 5.50 [...] pg/mL 7.0-15.5 TSH 1.17 uIU/ML 0.4-4.2 1 Critical Result LACT:3.2 Called to [facility] at: 22:47:43 by:[email or web address] Read back by:[facility] [employer] Severe Sepsis and Septic Shock Management Bundle Measure requires all lactic acids initially measuring >2.0 mmol/L be repeated. 2 >100 to <200 pg/mL: likely compensated congestive heart failure (CHF) 200 to 400 pg/mL: likely moderate CHF >400 pg/mL: likely moderate to severe CHF 3 Because ethnic data is not always readily [...] 15-29 5 Kidney failure <15 (or dialysis) 4 Acute inflammation: >10.00 5 1 sst 6 Non-immune <0.90 Equivocal 0.90 - 0.99 Immune >0.99 7 Negative <25.0 Equivocal 25.0 - 29.9 Positive >29.9 Presence of antibodies to Rubeola is presumptive evidence of immunity except when acute infection is suspected. 8 Negative <9.0 Equivocal 9.0 - 10.9 Positive >10.9 A positive result generally indicates past exposure to Mumps virus or previous vaccination. 9 FASTING 10 RESULT ROSIO'D 11 RESULT ROSIO'D 12 FASTING 13 Test Performed by: [place] [address] Food Safety Coordinator: Sosa Laughlin, Ph.D. 14 Test Performed by: [place] [address] Food Safety Coordinator: Sosa Laughlin, Ph.D. 15 -- REFERENCE VALUE -- 25-HYDROXY D TOTAL (D2+D3) Optimum levels in the normal population are 25-80 Test Performed by: [place] [address] Food Safety Coordinator: Jacoby Hernandez III, M.D. 16 Please note: New reference range, effective 05/06/11 NORMAL REFERENCE RANGE: GREATER THAN 4.1 NG/ML 17 Anion gap measurement may be of limited value in the presence of any alkalosis, especially in a combined acid base disorder. . 18 A metabolite of Naproxen, O-desmethylnaproxen, has been shown to interfere with the Jendrassik-Sanibel method for measuring total bilirubin. Samples from patients who have taken Naproxen have shown spurious elevation in total bilirubin levels. 19 Because ethnic data is not always readily [...] 15-29 5 Kidney failure <15 (or dialysis) 20 [id number] 21 SPLIT SPECIMEN; 2 SSTS 1 POURED OFF SERUM PROTECTED FROM LIGHT 1 EDTA PLASMA FROZEN AND PROTECTED FROM LIGHT 22 Please note reference interval change 23 Whole blood is the preferred specimen for thiamine assessment since thiamine diphosphate (TDP) is the biologically active form of the vitamin and is not measurably found in plasma. Plasma thiamine levels show only recent intake rather than body stores. Results for this test are for research purposes only by the assay's tool grinder set up operator gear. The performance characteristics of this product have not been established. Results should not be used as a diagnostic procedure without confirmation of the diagnosis by another medically established diagnostic product or procedure. . Effective August 30, 2011 the reference interval will be changing to: 8.1 - 32.9 24 Vitamin D deficiency has been defined by the [place] of [employer] and an Endocrine Society practice guideline as a level of serum 25-OH vitamin D less than 20 ng/mL (1,2). The Endocrine Society went on to further define vitamin D insufficiency as a level between 21 and 29 ng/mL (2). 1. IOM ([place] [employer]). 2010. Dietary reference intakes for calcium and D. [place]: The National Academies Press. 2. Zuleyka MF, Gail NC, Demetrice VALADEZ, et al. Evaluation, treatment, and prevention of vitamin D deficiency: an Endocrine Society clinical practice guideline. JCEM. 2010; 96(7):1911-30. . Effective July 19, 2011, Vitamin D, 25 Hydroxy specimen requirements will change to serum only. 25 result rosio'd 26 result rosio'd 27 PLEASE NOTE NEW REFERENCE RANGE. 28 Anion gap measurement may be of limited value in the presence of any alkalosis, especially in a combined acid base disorder. . 29 A metabolite of Naproxen, O-desmethylnaproxen, has been shown to interfere with the Jendrassik-Sanibel method for measuring total bilirubin. Samples from patients who have taken Naproxen have shown spurious elevation in total bilirubin levels. 30 Because ethnic data is not always readily [...] 15-29 5 Kidney failure <15 (or dialysis) 31 Lymphopenia % 32 result miquel'd 33 takes b12 supplements 34 1POUR OFF PLASMA FROM LAV TOP FROZEN AND PROTECTED BY LIGHT. 1POUR OFF SERUM PROTECTED FROM LIGHT.; 1SST 35 Whole blood is the preferred specimen for thiamine assessment since thiamine diphosphate (TDP) is the biologically active form of the vitamin and is not measurably found in plasma. Plasma thiamine levels show only recent intake rather than body stores. Results for this test are for research purposes only by the assay's tool grinder set up operator gear. The performance characteristics of this product have not been established. Results should not be used as a diagnostic procedure without confirmation of the diagnosis by another medically established diagnostic product or procedure. 36 Vitamin D deficiency has been defined by the [place] [employer] and an Endocrine Society practice guideline as a level of serum 25-OH vitamin D less than 20 ng/mL (1,2). The Endocrine Society went on to further define vitamin D insufficiency as a level between 21 and 29 ng/mL (2). 1. IOM ([place] of [employer]). 2011. Dietary reference intakes for calcium and D. [place]: The National Academies Press. 2. Zuleyka MF, Gail NC, Demetrice VALADEZ, et al. Evaluation, treatment, and prevention of vitamin D deficiency: an Endocrine Society clinical practice guideline. JCEM. 2010; 96(7):1911-30. Please note reference interval change 37 PLEASE NOTE NEW REFERENCE RANGE. 38 Please note updated reference range, effective 12/04/09 39 Anion gap measurement may be of limited value in the presence of any alkalosis, especially in a combined acid base disorder. . 40 A metabolite of Naproxen, O-desmethylnaproxen, has been shown to interfere with the Jendrassik-Sanibel method for measuring total bilirubin. Samples from patients who have taken Naproxen have shown spurious elevation in total bilirubin levels. 41 Because ethnic data is not always readily [...] 15-29 5 Kidney failure <15 (or dialysis) 42 Lymphopenia % 43 PREADMISSION TESTING SAMPLES FOR BLOOD BANK WILL [...] WITHIN 3 DAYS OF THE SURGERY DATE. 44 FASTING 2 FROZEN POURED OFF PLASMA FROM BLUE TOP TUBES 45 . 46 INTERNATIONAL NORMALIZED RATIO(INR) INDICATIONS INR RANGE PATIENTS [...] WITH AN UNACCEPTABLY HIGH RISK OF BLEEDING. 47 ---- RUN DATE: 06/12/10 [facility] LIVE PAGE 1 RUN TIME: 1037 Specimen Inquiry RUN USER: INTERFACE -- Name: TALI HOWARD Gabo Acckenzie#: [id number] Status: REG REF Re06/10/10 Age/Sex: 49/M Unit#: [id number] Location: [facility]. : 62 -- Specimen: [id number] SOUT Spec Date: 06/10/[address]: Stalin cortes MD Spec Type: SURGICAL P Received: 06/10/10-5749 Copies to: Mack hunt MD SPECIMEN STOMACH [...] in an addendum. ADDENDUM Addendum #1 Entered: 06/12/10 An immunohistochemical stain was performed with appropriate control for Helicobacter pylori and is negative. -- DEPARTMENT OF PATHOLOGY, [address] [place] [address] [facility] Permit #[id number] Otilio Everett M.D. [employer] Dir mckenzie -- -- RUN DATE: 06/12/10 [facility] NMI LIVE PAGE 2 RUN TIME: 1037 Specimen Inquiry RUN USER: INTERFACE -- Name: TALI HOWARD Status: REG REF Re06/10/10 Age/Sex: 49/M Unit#: [id number] Location: [facility] : 62 -- -- CONTINUED -- ADDENDUM (Continued) Addendum Review (signature on file) RICKY PERALTA 06/12/10 -- Signed Electronically by: YANIV MATUTE MD 06/11/10 1442 -- -- DEPARTMENT OF PATHOLOGY, [address] [place] [address] [facility] Permit #[id number] Otilio Everett M.D. [employer] Builder Dir magaly -- 49 FASTING; pour off serum 49 RESULT ROSIO'D 50 FASTING 51 result rosio'd 52 result roiso'd 53 RESULT ROSIO'D 54 RESULT ROSIO'D 55 FASTING Procedures Date CPT Code Description Status 08/08/2012 50174 Pulse Oximetry Completed 08/08/2012 46177 Nebulizer Treatment Completed 02/14/2012 Colonoscopy Completed 01/06/2012 17156 Finger Or Heel Stick Completed 11/24/2010 70162 Finger Or Heel Stick Completed 10/01/2010 81535 Electrocardiogram Complete Completed 08/27/2010 36454 Nebulizer Treatment Completed 11/14/2003 29917 Electrocardiogram Complete Completed Encounters Type Date Location Provider CPT E/M Dx Office Visit 11/07/2017 4:30p [facility] Office Roni Yoo, 26805 I71.4 MD Office Visit 07/29/2017 11:15a Main Office Gabriela Desai, [facility] 55893 N39.0 Office Visit 03/24/2016 9:20a [facility] Sonia Han M.D. 91451 E11.9 F41.1 I10 Z00.00 J45.20 Z23 Office Visit 02/04/2016 1:30p [facility] Celia SaucedoBrigidanp-C 17891 R68.84 Office Visit 12/03/2015 10:45a [facility] Celia SaucedoSaritha-C 15086 F41.1 J45.20 J30.2 Z23 Office Visit 08/15/2015 9:30a [place] [address] S46.911A J06.9 Office Visit 05/02/2015 2:00p [facility] Raz De La Rosa M.D. 21658 K40.90 Office Visit 04/02/2015 8:00a Main Office Raz De La Rosa M.D. 31511 Z00.00 F41.1 J45.20 Z23 Office Visit 02/26/2015 4:00p Main Office Raz De La Rosa M.D. 78186 B34.9 F41.1 B35.4 Office Visit 07/22/2014 9:45a Main Office Gabriela Desai [facility] 54936 465.9 Office Visit 05/28/2014 11:10a [facility] Yung Bryan M.D. 06208 708.1 Office Visit 02/14/2014 4:30p Main Office Yung Bryan M.D. 65822 692.6 Office Visit 10/24/2013 2:30p Main Office Linda KleinSaritha ellis-C 59990 692.6 Office Visit 06/27/2013 8:30a [facility] Mack Mejía M.D. 85401 300.00 790.21 493.90 Office Visit 05/17/2013 10:00a [facility] Gabriela Desai [facility] 26835 300.00 V17.49 250.00 V45.86 272.4 268.9 Office Visit 11/24/2012 1:45p [place] [address] 692.6 Office Visit 08/08/2012 11:15a Main Office Oumou Sandovalbhart, [facility] 11707 466.0 461.8 786.2 Office Visit 05/23/2012 3:40p Main Office Zay Candelario M.D. 33975 466.0 461.8 493.90 Office Visit 02/03/2012 9:20a Main Office Mack Mejía M.D. 58525 300.00 Office Visit 01/06/2012 8:00a Main Office Mack Mejía M.D. 40361 V70.0 250.00 493.90 300.00 V17.49 V77.91 V76.41 Office Visit 12/31/2011 1:00p Main Office Roni Solomon M.D. 41923 462 Office Visit 02/15/2011 1:10p Main Office Roni Solomon M.D. 22137 708.0 Office Visit 11/24/2010 9:40a [facility] Mack Mejía M.D. 97990 250.00 278.00 493.90 401.1 780.59 Office Visit 10/01/2010 3:00p Main Office Mack Mejía M.D. 42950 V72.83 278.00 250.00 493.90 401.1 Office Visit 08/27/2010 3:15p [facility] Gabriela Desai, [facility] 26380 493.00 Office Visit 07/21/2010 9:30a [facility] Mack Mejía M.D. 37124 250.00 278.00 401.1 787.91 493.00 Office Visit 04/30/2010 10:40a Main Office Mack Mejía M.D. 93817 719.47 278.00 250.00 401.1 780.59 Office Visit 03/19/2010 3:10p Main Office Mack Mejía M.D. 58454 V65.8 250.00 493.90 401.1 278.00 780.59 V05.3 Office Visit 12/17/2009 10:15a Main Office Saritha Hamilton-C 30990 883.0 V58.32 Office Visit 12/06/2009 11:50a Main Office Oumousherie Quintero, 56703 883.0 M.D. Office Visit 10/06/2009 9:40a [facility] Office Mack Mejía M.D. 71860 250.00 493.90 401.1 278.00 272.4 Office Visit 08/13/2009 10:00a [facility] Office Mack Mejía M.D. 08155 465.9 493.90 250.00 401.1 Office Visit 07/30/2009 3:00p [facility] Office Mack Mejía M.D. 00969 465.9 493.90 250.00 401.1 Office Visit 07/08/2009 9:40a [facility] Office Mack Mejía M.D. 01921 493.90 250.00 401.1 278.00 272.4 V03.82 Office Visit 07/02/2009 4:10p [facility] Office Mack Mejía M.D. 93224 465.9 493.90 250.00 401.1 278.00 Office Visit 04/29/2009 10:30a [facility] Office Skyla Mckeon 71802 465.9 493.90 Office Visit 04/08/2009 9:00a [facility] Office Mack Mejía M.D. 02308 250.00 401.1 278.00 493.90 V04.81 Office Visit 12/25/2008 10:40a [facility] Office Mack Mejía M.D. 28731 790.21 278.00 Office Visit 11/28/2008 10:20a Main Office Mack Mejía M.D. 48741 780.59 401.1 278.00 Office Visit 10/25/2008 1:00p Main Office Skyla Mckeon 30898 401.9 Office Visit 09/26/2008 2:40p Main Office Mack Mejía M.D. 96144 401.1 Office Visit 08/27/2008 8:10a Main Office Mack Mejía M.D. 20424 784.0 780.2 401.1 493.90 600.00 Office Visit 08/15/2008 8:40a Main Office Mack Mejía M.D. 21092 401.1 493.90 727.43 780.2 Office Visit 07/25/2008 11:00a [facility] Zay Candelario M.D. 44280 465.9 493.90 466.0 Office Visit 2007 3:10p [facility] Mack Mejía M.D. 36013 465.9 493.90 Office Visit 08/25/2007 3:40p [facility] Mack Mejía M.D. 68856 466.0 493.90 Office Visit 02/02/2007 3:00p [facility] SUHA Stewart 84003 466.0 Office Visit 07/28/2006 2:40p [facility] Zay Candelario M.D. 98224 401.1 346.20 726.32 493.90 Office Visit 07/06/2006 8:40a Main Office Zay Candelario M.D. 63588 401.1 790.6 780.4 346.20 Office Visit 06/03/2006 3:20p Main Office Zay Candelario M.D. 48973 599.7 401.1 493.90 278.00 783.5 V17.3 600.00 Office Visit 04/21/2006 9:00a Main Office Linda SoniSarithaLeonardo 69458 465.9 490 Office Visit 03/31/2005 3:40p Main Office Zay Candelario M.D. 29218 466.0 465.9 493.90 Office Visit 03/23/2004 12:10p Main Office Zay Candelario M.D. 54395 466.0 786.2 Office Visit 03/10/2004 1:30p Main Office SUHA Stewart 76579 493.90 Office Visit 11/14/2003 10:25a Main Office Zay Candelario M.D. 02028 V77.91 278.00 V17.4 786.50 V18.0 V77.0 Office Visit 07/22/2003 2:45p Main Office SUHA Stewart 47989 465.9 783.21 Office Visit 05/23/2003 2:00p [facility] SUHA Stewart 06411 473.9 Office Visit 08/31/2001 11:00a [facility] Zay Candelario M.D. 94554 Office Visit 05/13/2000 3:00p Main Office Zay Candelario M.D. 94469 Plan of Care 12/14/2017 - Roni Yoo MDN39.0 Urinary tract infection, site not specifiedNew Medication:Bactrim DS 800-160 mgK40.00 Bi inguinal hernia, w obst, w/o gangrene, not spcf as ieunmQ45.2 Drug-induced erectile dysfunctionComments: stop the Lisinopril completely.AllComments:~B_~U_Medication Management~b_~u_ Patient Understands medications he's taking? Yes No Are there Barriers to Adherence? Yes No Has the patient been asked about herbal supplements and therapies, and OTC meds? Yes No
[2018-01-14 13:32] VITALS: BP 137/80
--- NOTE | 2018-01-16 07:09 | UC ---
Discharge - Sign-Out/Discharge Documenting (check all that apply): Post-Discharge Follow Up All imaging exams completed and their final reports reviewed: No Studies - Discharge Plan Disposition: LEFT WITHOUT BEING SEEN Referrals: No Primary Care Phys,NOPCP [Primary Care Provider] - - Billing Disposition and Condition Disposition: Left Without Being Seen
== END 2018-01-14 14:45 | disposition left against medical advice (07) ==
LOC: UCEAST 13:01
DX: S49.90XA Unspecified injury of shoulder and upper arm, unspecified arm, initial encounter (principal); X58.XXXA Exposure to other specified factors, initial encounter; Y93.9 Activity, unspecified; Y92.9 Unspecified place or not applicable; Z53.21 Procedure and treatment not carried out due to patient leaving prior to being seen by health care provider

== ENCOUNTER 2018-01-15 08:27 | Emergency (ER) | payer OTHER ==
[2018-01-15] MEDS ORDERED: Albuterol/Ipratropium NEB.SOL* Albuterol 2.5 MG/Ipratropium 0.5 MG 3 ML INH ONE (08:48)
[2018-01-15] MEDS ORDERED: Iodixanol* (CONTRAST) 320 MG/ML 100 ML SDV IV ONE (09:01)
--- NOTE | 2018-01-15 09:12 | RAD ---
INDICATION: Increasing chest pain and shortness of breath 2 days after a "client fall into anterior chest wall" COMPARISON: Most recent comparison chest x-rays dated October 10, 2017 TECHNIQUE: PA and lateral views of the chest were obtained. FINDINGS: The heart and mediastinum are normal in size and contour. Relative to the previous chest x-ray the left lung appears hypoplastic. There is a linear density at the lateral aspect of the left lung base that appears to be localized posteriorly on the lateral view chest x-ray. Otherwise the lungs are adequately aerated. There is no evidence of large pleural effusion. Visualized bones are normal for the patient's age. There is no radiographic evidence of free air beneath the diaphragm IMPRESSION: DENSITY SEEN IN THE LEFT LUNG BASE COULD BE ATELECTASIS, POTENTIALLY COLLAPSE OF THE LEFT LOWER LOBE. IF IT WILL INFLUENCE CLINICAL MANAGEMENT SUPERIOR CHARACTERIZATION COULD BE MADE WITH CT OF THE CHEST.
[2018-01-15 09:18] LABS: ABS Basophils 0.1 10^3/ul (0-0.2); ABS Eosinophils 0.3 10^3/ul (0-0.6); ABS Lymphocytes 1.4 10^3/ul (1.0-4.8); ABS Monocytes 1.2 10^3/ul (0-0.8); ABS Neutrophils 14.5 10^3/ul (1.5-7.7); ABS Nucleated RBC 0 10^3/ul; Eosinophil % 1.7 % (0-6); Hematocrit 39 % (42-52); Hemoglobin 13.1 g/dl (14.0-18.0); Lymphocyte % 7.8 % (25-47); Mean Corpuscular HGB Conc 34 g/dl (31-36); Mean Corpuscular Hemoglobin 28 pg (27-31); Mean Corpuscular Volume 84 fL (80-94); Mean Platelet Volume 6.8 um3 (7.4-10.4); Nucleated Red Blood Cells % 0; Platelet Count 296 10^3/ul (150-450); Red Blood Count 4.66 10^6/ul (4.00-5.40); Red Cell Distribution Width 15 % (10.5-15); White Blood Count 17.5 10^3/ul (3.5-10.8)
[2018-01-15] MEDS ORDERED: Ondansetron INJ* 2 MG/ML VIAL IV ONE (09:18)
[2018-01-15] MEDS ORDERED: Morphine VIAL* 4 MG/ML VIAL (1 ml vial) IV ONE (09:18)
[2018-01-15] MEDS ORDERED: Morphine INJ* 2 MG/ML 1 ML SYRINGE (TWO MG - NEW SYRINGE VERSION) ONE (09:23)
[2018-01-15] MEDS ORDERED: Iodixanol 320 (CONTRAST) 100 ML SDV IV ONE (09:23)
[2018-01-15 09:26] LABS: INR 1.09 (0.77-1.02)
[2018-01-15 09:37] LABS: EGFR Non-African American 88.4 (>60)
[2018-01-15] MEDS ORDERED: Levofloxacin 750 MG IVPREMIX(* 750 MG/150 ML BAG IVPB ONE (09:38)
[2018-01-15] MEDS ORDERED: Ketorolac INJ* 30 MG/ML 1 ML VIAL IV PUSH ONE (09:40)
--- NOTE | 2018-01-15 10:00 | RAD ---
INDICATION: Difficulty breathing. COMPARISON: Most recent CTA there is dated December 05, 2017 TECHNIQUE: Axial source images were acquired following the administration of 99 mL of Visipaque [address] angiographic technique. Coronal and sagittal reconstructed images were constructed and reviewed. FINDINGS: Unless otherwise specified comparisons below reference 2 December 05, 2017 CTA. Again seen is a type B aortic dissection beginning immediately beyond the branch point of the left subclavian artery. At the origin of the dissection there is eccentric mural thrombus. The aorta measures 4.7 cm in greatest diameter (series 2 image 37). This appears to have increased slightly from 4.3 cm on the previous CTA. In the sagittal plane the aneurysmal thoracic aorta measures 4.7 cm in greatest AP dimension (image 79 of 139), previously 4.4 cm. The aortic dissection extends inferiorly along the posterior margin of the thoracic aorta. More inferiorly the true lumen of the dissection begins off the celiac trunk and superior mesenteric artery. The right renal artery ostial branches from the true lumen. The false lumen oriented bilaterally along the left and right margins of the abdominal aorta communicates with the left renal artery. At the level of the branch point of the celiac trunk the abdominal aorta measures 3.5 x 4.5 cm in the axial plane not significantly changed since the previous CTA. There there are no filling defects in the pulmonary arteries to indicate acute pulmonary embolic disease. There is complete collapse of the left lower lobe. There is mild groundglass opacification of the remaining lung but the lung is overall well aerated. There is a pleural-based density at the dependent-most portion of the right lower lobe compatible with atelectasis. The heart is normal in size. There is no evidence of pericardial effusion. There is no evidence of aortic aneurysm or dissection. There is no mediastinal, hilar, or axillary lymphadenopathy. The visualized osseous structures appear normal. Limited views of the upper abdomen show no abnormalities. IMPRESSION: 1. Complete collapse of the left lower lobe. 2. Again seen is a type B aortic dissection. There has been interval widening at the aortic arch immediately beyond the branch point of the subclavian artery with the aneurysm now measuring 4.7 cm, increased slightly from 4.3 cm on the most recent December 05, 2017 CTA. Surgical consultation/evaluation is advised. Findings were discussed with Zaina WILCOX over the telephone at 0950 hours on January 15, 2018.
--- NOTE | 2018-01-15 10:07 | ED ---
Progress - Progress Note Progress Note: Per Dr. 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 He reports that an individual near him fell backwards and he caught him with his left arm/chest and helped him stay up. Patient reports chest pain onset after this incident. PE: Appearance: Well appearing, no pain distress Skin: warm, dry, reflects adequate perfusion Head/face: normal Eyes: EOMI, FLAVIA ENT: normal Neck: supple, non-tender Respiratory: breath sounds present; coarse in left base Cardiovascular: RRR, pulses symmetrical Abdomen: non-tender, soft Bowel Sounds: present Musculoskeletal: strength/ROM intact; extreme tenderness in left chest wall and pectoral muscle Neuro: normal, sensory motor intact, A&Ox3 Plan: get CT chest, start resp. therapy for patient; plan to admit patient at time 1103 -- patient is more comfortable with vapotherm. 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 He is also hypoxic, but his work of breathing and hypoxia is improved on Vapotherm. Re-Evaluation - Re-Evaluation First Eval Re-Evaluation Time: 11:03 Change: Improved Comment: 1103 -- patient is more comfortable with vapotherm. He understands that he will be transferred. Course/Dx - Diagnoses Provider Diagnoses: Aortic dissection, Pneumonia - Provider Notifications Instructed by Provider To: Other - JERI Hernandez consulted Dr. Munoz from [facility] at around 1120. Dr. Munoz accepts patient for transfer. - Critical Care Time Critical Care Time: 30-74 min - Critical care time is exclusive of separately billable procedures Discharge - Sign-Out/Discharge Documenting (check all that apply): Patient Departure - transfer - Discharge Plan Condition: Fair Disposition: TRANS HIGHER LVL OF CARE FAC Referrals: No Primary Care Phys,NOPCP [Primary Care Provider] - - Billing Disposition and Condition Condition: FAIR Disposition: Trans Higher Lvl of Care Fac - Attestation Statements Document Initiated by Scribe: Yes Documenting Scribe: Oscar Bridges Provider For Whom Scribe is Documenting (Include Credential): Martín Velazquez MD Scribe Attestation: IOscar, scribed for Martín Velazquez MD on 01/15/18 at 1237. Scribe Documentation Reviewed: Yes Provider Attestation: The documentation as recorded by the scribe, Oscar Bridges accurately reflects the service I personally performed and the decisions made by me, Martín Velazquez MD
--- NOTE | 2018-01-15 10:31 | ED ---
Shortness of Breath - HPI Summary HPI Summary: Patient is a 57yo M with a complicated PMH including aortic dissection as recent as 3x months ago and COPD. Patient arrives with CC of SOB, severe L sided chest pain and syncopal episodes secondary to prolonged coughing. Presents with sweats and chills, but denies fever. Patient states this feels like his previous pneumonia due to sweats chills. He has not taken anything at home for relief. 3 months ago he was noted to have a tight be aortic dissection starting at the left subclavian measuring 4.0 cm not involving the aortic arch. Denies pain to the abdomen or back. - History of Current Complaint Chief Complaint: EDShortnessOfBreath Time Seen by Provider: 01/15/18 08:33 Hx Obtained From: Patient Onset/Duration: Gradual Onset Timing: Constant Current Severity: Severe Dyspnea At: Rest Aggrevating Factors: Movement, Deep Breaths Alleviating Factors: Oxygen Associated Signs & Symptoms: Cough (Nonproductive), Wheezing, Chest Pain Unrelated to Cough, Chills, Diaphoresis, Dizzy - Risk Factors Pseudomonas: Repeated Antibiotics Past 3 Months - Allergy/Home Medications Allergies/Adverse Reactions: Allergies Allergy/AdvReac Type Severity Reaction Status Date / Time Adhesive Tape Allergy BURNING, Verified 01/15/18 10:12 IRRITATION TO SKIN bee venom protein (honey bee) Allergy Anaphylatic Verified 01/15/18 10:12 Shock clindamycin Allergy Diarrhea Verified 01/15/18 10:12 Penicillins Allergy Unknown Verified 01/15/18 10:12 Reaction Details BEE STING Allergy Anaphylatic Uncoded 01/15/18 10:12 Shock seasonal allergies Allergy Eyes Uncoded 01/15/18 10:12 Itchy/Swollen/Red/Watery PMH/Surg Hx/FS Hx/Imm Hx Previously Healthy: No - dissection Endocrine/Hematology History: Denies: Hx Diabetes - HX OF BEFORE WEIGHT LOSS, Hx Thyroid Disease Cardiovascular History: Reports: Hx Hypertension - was not on meds prior to Denies: Hx Congestive Heart Failure Respiratory History: Reports: Hx Asthma - USES INHALER, Hx Chronic Bronchitis, Hx Chronic Obstructive Pulmonary Disease (COPD), Hx Pneumonia, Hx Sleep Apnea - HX OF GI History: Reports: Hx Gastroesophageal Reflux Disease - ACID REFLUX, Other GI Disorders - gastric bypass surgery, 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 Denies: Hx Ulcer History: Denies: Hx Renal Disease Sensory History: Reports: Hx Contacts or Glasses - GLASSES Denies: Hx Hearing Aid Opthamlomology History: Reports: Hx Contacts or Glasses - GLASSES Neurological History: Reports: Hx Headaches - CLUSTER HEADACHES, Hx Migraine - EVERY 2 WEEKS - Surgical History Surgery Procedure, Year, and Place: 2010 LAPAROSCOPIC GASTRIC BYPASS[place] [facility] , [facility] [place] LAPAROSCOPIC REDUCTION AND REPAIR INTERNAL HERNIA, [facility] [place] Hx Anesthesia Reactions: No - Immunization History Hx Pertussis Vaccination: No Immunizations Up to Date: Yes Infectious Disease History: No Infectious Disease History: Denies: Hx Hepatitis, Hx Human Immunodeficiency Virus (HIV), Traveled Outside the US in Last 30 Days - Family History Known Family History: Positive: Cardiac Disease - Father: [place] Family History: Father: stroke. Sister: liver and stomach [place] - Social History Occupation: Employed Part-time Lives: Alone Alcohol Use: Rare Alcohol Amount: wine Hx Substance Use: No Substance Use Type: Reports: None Hx Tobacco Use: Yes - not currently Smoking Status (MU): Former Smoker Type: Cigarettes Amount Used/How Often: 1PPD Have You Smoked in the Last Year: No Review of Systems Positive: Fever, Chills. Negative: Fatigue, Skin Diaphoresis Negative: Photophobia, Blurred Vision, Diplopia, Drainage Positive: Chest Pain. Negative: Palpitations Positive: Shortness Of Breath, Cough Negative: Abdominal Pain, Vomiting, Diarrhea Genitourinary: Negative Positive: no symptoms reported, see HPI Negative: Arthralgia, Myalgia Negative: Rash, Bruising Positive: Weakness, Syncope. Negative: Headache, Paresthesia, Numbness, Slurred Speech Psychological: Normal All Other Systems Reviewed And Are Negative: Yes Physical Exam Triage Information Reviewed: Yes Vital Signs On Initial Exam: Initial Vitals Temp Pulse Resp BP Pulse Ox 99.2 F 79 18 144/69 86 01/15/18 08:30 01/15/18 08:30 01/15/18 08:30 01/15/18 08:30 01/15/18 08:30 Vital Signs Reviewed: Yes Appearance: Positive: Ill-Appearing Skin: Positive: Skin Color Reflects Adequate Perfusion Head/Face: Positive: Normal Head/Face Inspection Eyes: Positive: EOMI, FLAVIA, Conjunctiva Clear Neck: Positive: No Lymphadenopathy Respiratory/Lung Sounds: Positive: Rhonchi, Unable to speak in full sentences, Fatigue Cardiovascular: Positive: RRR, Pulses are Symmetrical in both Upper and Lower Extremities. Negative: IRR, Tachycardia, Leg Edema Left, Leg Edema Right Abdomen Description: Positive: Nontender, Soft Musculoskeletal: Positive: Strength/ROM Intact Neurological: Positive: Sensory/Motor Intact, Alert, Oriented to Person Place, Time, Speech Normal Psychiatric: Positive: Affect/Mood Appropriate AVPU Assessment: Alert Diagnostics - Vital Signs Vital Signs Temp Pulse Resp BP Pulse Ox 01/15/18 10:00 69 18 98 01/15/18 09:30 25 01/15/18 09:23 70 17 92 01/15/18 09:00 25 01/15/18 08:37 81 82 01/15/18 08:30 99.2 F 79 18 144/69 86 - Laboratory Lab Results: Lab Results 01/15/18 01/15/18 01/15/18 Range/Units 09:07 09:07 09:07 WBC 17.5 H (3.5-10.8) 10^3/ul RBC 4.66 (4.00-5.40) 10^6/ul Hgb 13.1 L (14.0-18.0) g/dl Hct 39 L (42-52) % MCV 84 (80-94) fL MCH 28 (27-31) pg MCHC 34 (31-36) g/dl RDW 15 (10.5-15) % Plt Count 296 (150-450) 10^3/ul MPV 6.8 L (7.4-10.4) um3 Neut % (Auto) 83.0 (38-83) % Lymph % (Auto) 7.8 L (25-47) % [place] % (Auto) 7.1 H (0-7) % Eos % (Auto) 1.7 (0-6) % Baso % (Auto) 0.4 (0-2) % Absolute Neuts (auto) 14.5 H (1.5-7.7) 10^3/ul Absolute Lymphs (auto) 1.4 (1.0-4.8) 10^3/ul Absolute Monos (auto) 1.2 H (0-0.8) 10^3/ul Absolute Eos (auto) 0.3 (0-0.6) 10^3/ul Absolute Basos (auto) 0.1 (0-0.2) 10^3/ul Absolute Nucleated RBC 0 10^3/ul Nucleated RBC % 0 INR (Anticoag Therapy) (0.77-1.02) Sodium 131 L (135-145) mmol/L Potassium 3.6 (3.5-5.0) mmol/L Chloride 96 L (101-111) mmol/L Carbon Dioxide 29 (22-32) mmol/L Anion Gap 6 (2-11) mmol/L BUN 13 (6-24) mg/dL Creatinine 0.89 (0.67-1.17) mg/dL Est GFR ( Amer) 107.0 (>60) Est GFR (Non-Af Amer) 88.4 (>60) BUN/Creatinine Ratio 14.6 (8-20) Glucose 130 H (70-100) mg/dL Lactic Acid 0.8 (0.5-2.0) mmol/L Calcium 9.1 (8.6-10.3) mg/dL Total Bilirubin 1.10 H (0.2-1.0) mg/dL AST 13 (13-39) U/L ALT 13 (7-52) U/L Alkaline Phosphatase 97 (34-104) U/L Troponin I 0.00 (<0.04) ng/mL C-Reactive Protein 163.63 H (<8.01) mg/L Total Protein 7.2 (6.4-8.9) g/dL Albumin 3.8 (3.2-5.2) g/dL Globulin 3.4 (2-4) g/dL Albumin/Globulin Ratio 1.1 (1-3) 01/15/18 Range/Units 09:07 WBC (3.5-10.8) 10^3/ul RBC (4.00-5.40) 10^6/ul Hgb (14.0-18.0) g/dl Hct (42-52) % MCV (80-94) fL MCH (27-31) pg MCHC (31-36) g/dl RDW (10.5-15) % Plt Count (150-450) 10^3/ul MPV (7.4-10.4) um3 Neut % (Auto) (38-83) % Lymph % (Auto) (25-47) % [place] % (Auto) (0-7) % Eos % (Auto) (0-6) % Baso % (Auto) (0-2) % Absolute Neuts (auto) (1.5-7.7) 10^3/ul Absolute Lymphs (auto) (1.0-4.8) 10^3/ul Absolute Monos (auto) (0-0.8) 10^3/ul Absolute Eos (auto) (0-0.6) 10^3/ul Absolute Basos (auto) (0-0.2) 10^3/ul Absolute Nucleated RBC 10^3/ul Nucleated RBC % INR (Anticoag Therapy) 1.09 H (0.77-1.02) Sodium (135-145) mmol/L Potassium (3.5-5.0) mmol/L Chloride (101-111) mmol/L Carbon Dioxide (22-32) mmol/L Anion Gap (2-11) mmol/L BUN (6-24) mg/dL Creatinine (0.67-1.17) mg/dL Est GFR ( Amer) (>60) Est GFR (Non-Af Amer) (>60) BUN/Creatinine Ratio (8-20) Glucose (70-100) mg/dL Lactic Acid (0.5-2.0) mmol/L Calcium (8.6-10.3) mg/dL Total Bilirubin (0.2-1.0) mg/dL AST (13-39) U/L ALT (7-52) U/L Alkaline Phosphatase (34-104) U/L Troponin I (<0.04) ng/mL C-Reactive Protein (<8.01) mg/L Total Protein (6.4-8.9) g/dL Albumin (3.2-5.2) g/dL Globulin (2-4) g/dL Albumin/Globulin Ratio (1-3) Result Diagrams: 01/15/18 09:07 01/15/18 09:07 Lab Statement: Any lab studies that have been ordered have been reviewed, and results considered in the medical decision making process. - Radiology No standard instances Xray Interpretation: Positive (See Comments) Radiology Interpretation Completed By: Radiologist - IMPRESSION: DENSITY SEEN IN THE LEFT LUNG BASE COULD BE ATELECTASIS, POTENTIALLY COLLAPSE OF THE LEFT LOWER LOBE. IF IT WILL INFLUENCE CLINICAL MANAGEMENT SUPERIOR CHARACTERIZATION COULD BE MADE WITH CT OF THE CHEST. - CT No standard instances CT Interpretation: Positive (See Comments) CT Interpretation Completed By: Radiologist - IMPRESSION: 1. Complete collapse of the left lower lobe. 2. Again seen is a type B aortic dissection. There has been interval widening at the aortic arch immediately beyond the branch point of the subclavian artery with the aneurysm now measuring 4.7 cm, increased slightly from 4.3 cm on the most recent December 05, 2017 CTA. Surgical consultation /evaluation is advised. Findings were discussed with Zaina WILCOX over the telephone at 0950 hours on January 15, 2018. - EKG No standard instances Cardiac Rate: NL EKG Rhythm: Sinus Rhythm ST Segment: Non-Specific EKG Comparison: No Significant Change Course/Dx - Course Course Of Treatment: Xray obtained immediatley on arrival which shows a LLL PNA. Chest CT obtained: IMPRESSION: 1. Complete collapse of the left lower lobe. 2. Again seen is a type B aortic dissection. There has been interval widening at the. aortic arch immediately beyond the branch point of the subclavian artery with the aneurysm. now measuring 4.7 cm, increased slightly from 4.3 cm on the most recent December 05, 2017 CTA. Surgical consultation/ evaluation is advised. Labs obtained which shows an elevated WBC. Morphine, zofran and NS given. Patient placed on vapotherm with good effect. Sxs significant improved. D/t worsening dissection, collapsed lung and PNA, will transfer to [facility]. Patient is fair and stable on discharge. - Diagnoses Differential Diagnosis/HQI/PQRI: Positive: Chest Wall Pain, COPD Exacerbation, UT, Pneumonia, Other - aortic dissection Provider Diagnoses: Aortic dissection, Pneumonia - Physician Notifications Discussed Care of Patient With: Martín Velazquez - ED - agrees to see patient Instructed by Provider To: Transfer Reason For Transfer: Patient not appropriate for [facility] [place]. - Critical Care Time Critical Care Time: 30-74 min Discharge - Sign-Out/Discharge Documenting (check all that apply): Patient Departure - Discharge Plan Condition: Fair Disposition: TRANS HIGHER LVL OF CARE FAC Referrals: No Primary Care Phys,NOPCP [Primary Care Provider] - - Billing Disposition and Condition Condition: FAIR Disposition: Trans Higher Lvl of Care Fac
[2018-01-15] MEDS ORDERED: Morphine INJ* 2 MG/ML 1 ML SYRINGE (TWO MG - NEW SYRINGE VERSION) IV ONE (11:10)
[2018-01-15] MEDS ORDERED: Morphine INJ** 4 MG/ML 1 ML CARPUJECT IV ONE (11:20)
[2018-01-15 11:44] VITALS: BP 130/67
== END 2018-01-15 11:44 | disposition short-term general hospital (02) ==
LOC: ED 08:27
DX: I71.00 Dissection of unspecified site of aorta (principal); J18.9 Pneumonia, unspecified organism; J44.9 Chronic obstructive pulmonary disease, unspecified; I10 Essential (primary) hypertension; J45.909 Unspecified asthma, uncomplicated; K21.9 Gastro-esophageal reflux disease without esophagitis; Z87.891 Personal history of nicotine dependence
CPT/HCPCS: 36415; 71046; 71275; 80053; 83605; 84484; 85025; 85610; 86140; 93005; 96374; 96375; 96376; 99284; A9270-GY; J1885; J2270; J2405; Q9967

== ENCOUNTER 2018-10-17 20:06 | Emergency (ER) | payer OTHER ==
[2018-10-17] MEDS ORDERED: NS 0.9% 1000 ML** 2,000 ML IV ONE (20:18)
[2018-10-17] MEDS ORDERED: Iodixanol* (CONTRAST) 320 MG/ML 100 ML SDV IV ONE (20:35)
[2018-10-17] MEDS ORDERED: Morphine 4 MG/ML VIAL (1 ml) 4 MG/ML VIAL IV ONE (20:44)
--- NOTE | 2018-10-17 20:47 | ED ---
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 The patient rates the pain an 8/10 in severity and states that he has been urinating a lot of blood. The pt reports that after the pain started he drove to the ED. He also reports that he has nausea, vomiting, headaches, and lightheadedness. The pt reports a Hx of AAA which was removed in [place] approximately one year ago. he had similar symptoms last starting last week but was not Dx with any acute or chronic illnesses. - History of Current Complaint Chief Complaint: EDChestPainROMI Stated Complaint: ABD AND CHEST PAIN PER PT Time Seen by Provider: 10/17/18 20:22 Hx Obtained From: Patient Onset/Duration: Sudden Onset, Lasting Hours - one hour and thrity minutes BUSINESS PRACTICES SUPERVISOR, Still Present, Worse Since Timing: Constant Severity Initially: Severe Severity Currently: Severe Pain Intensity: 8 Pain Scale Used: 0-10 Numeric Location: Diffuse Radiates: No Aggravating Factor(s): Nothing Alleviating Factor(s): Nothing Associated Signs And Symptoms: Positive: Back Pain, Urinary Symptoms - Hematuria , Nausea, Vomiting, Other - Headache and lightheaded - Allergies/Home Medications Allergies/Adverse Reactions: Allergies Allergy/AdvReac Type Severity Reaction Status Date / Time Adhesive Tape Allergy BURNING, Verified 10/17/18 20:09 IRRITATION TO SKIN bee venom protein (honey bee) Allergy Anaphylatic Verified 10/17/18 20:09 Shock clindamycin Allergy Diarrhea Verified 10/17/18 20:09 Penicillins Allergy Unknown Verified 10/17/18 20:09 Reaction Details BEE STING Allergy Anaphylatic Uncoded 10/17/18 20:09 Shock seasonal allergies Allergy Eyes Uncoded 10/17/18 20:09 Itchy/Swollen/Red/Watery PMH/Surg Hx/FS Hx/Imm Hx Previously Healthy: No Endocrine/Hematology History: Denies: Hx Diabetes - HX OF BEFORE WEIGHT LOSS, Hx Thyroid Disease Cardiovascular History: Reports: Hx Hypertension - was not on meds prior to Denies: Hx Congestive Heart Failure Respiratory History: Reports: Hx Asthma - USES INHALER, Hx Chronic Bronchitis, Hx Chronic Obstructive Pulmonary Disease (COPD), Hx Pneumonia, Hx Sleep Apnea - HX OF GI History: Reports: Hx Gastroesophageal Reflux Disease - ACID REFLUX, Other GI Disorders - gastric bypass surgery, 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 Denies: Hx Ulcer History: Denies: Hx Renal Disease Sensory History: Reports: Hx Contacts or Glasses - GLASSES Denies: Hx Hearing Aid Opthamlomology History: Reports: Hx Contacts or Glasses - GLASSES Neurological History: Reports: Hx Headaches - CLUSTER HEADACHES, Hx Migraine - EVERY 2 WEEKS - Surgical History Surgery Procedure, Year, and Place: 2010 LAPAROSCOPIC GASTRIC BYPASS- [facility] , [facility] [place]. 2011 LAPAROSCOPIC REDUCTION AND REPAIR INTERNAL HERNIA, [facility] [place] Hx Anesthesia Reactions: No Infectious Disease History: No Infectious Disease History: Denies: Hx Hepatitis, Hx Human Immunodeficiency Virus (HIV), Traveled Outside the [place] in Last 30 Days - Family History Known Family History: Positive: Cardiac Disease - Father: [place] Family History: Father: stroke. Sister: liver and stomach CA - Social History Alcohol Use: Rare Alcohol Amount: wine Hx Substance Use: No Substance Use Type: Reports: None Hx Tobacco Use: Yes - not currently Smoking Status (MU): Former Smoker Type: Cigarettes Amount Used/How Often: 1PPD Have You Smoked in the Last Year: No Review of Systems Positive: Abdominal Pain, Vomiting, Nausea. Negative: Diarrhea Positive: hematuria Neurological: Other - lightheaded Positive: Headache All Other Systems Reviewed And Are Negative: Yes Physical Exam Triage Information Reviewed: Yes Vital Signs On Initial Exam: Initial Vitals Temp Pulse Resp BP Pulse Ox 98.0 F 40 18 124/83 96 10/17/18 20:08 10/17/18 20:08 10/17/18 20:08 10/17/18 20:08 10/17/18 20:08 Vital Signs Reviewed: Yes Diagnostics - Vital Signs Vital Signs Temp Pulse Resp BP Pulse Ox 10/17/18 20:39 98 10/17/18 20:34 52 14 127/77 97 10/17/18 20:33 47 15 97 10/17/18 20:08 98.0 F 40 18 124/83 96 - Laboratory Result Diagrams: 10/17/18 20:55 Lab Statement: Any lab studies that have been ordered have been reviewed, and results considered in the medical decision making process. 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 The patient rates the pain an 8/10 in severity and states that he has been urinating a lot of blood. The pt reports that after the pain started he drove to the ED. He also reports that he has nausea, vomiting, headaches, and lightheadedness. The pt reports a Hx of AAA which was removed in [place] approximately one year ago. he had similar symptoms last starting last week but was not Dx with any acute or chronic illnesses. The patient was immediately evaluated by me on arrival to his room and sent for emergent CTA of his chest abdomen and pelvis given the history of aortic dissection. This did show an aortic dissection so I began making arrangements to have him transferred emergently by air to [facility]. However on researching further records and speaking with the covering vascular surgeon at [facility], the patient has a long history of aortic dissection with a number presentations both here and in [place] and has always been treated medically. He had a follow-up CTA done about a week ago here, and I reviewed those images and compare them to today's, and they look grossly similar to me. Nonetheless he was a symptomatically then , but is now quite symptomatically with abrupt onset of pain so I am concerned that he may have some complication of his chronic dissection. Accordingly arrangements are being made to send him emergently to [place], I spoke to the covering vascular surgeon as well as the emergency physician, and the patient presently is stable with a blood pressure in the 120-140 systolic range, and a heart rate in the 50s. - Diagnoses Provider Diagnoses: Thoracic aortic dissection Discharge - Sign-Out/Discharge Documenting (check all that apply): Patient Departure - Transfered to [facility], accepting physician is Dr. Castillo - Discharge Plan Condition: Guarded Disposition: TRANS HIGHER LVL OF CARE FAC Referrals: Rajan London DO [Primary Care Provider] - - Billing Disposition and Condition Condition: GUARDED Disposition: Trans Higher Lvl of Care Fac - Attestation Statements Document Initiated by Karen: Yes Documenting Scribe: Barber Donahue Provider For Whom Karen is Documenting (Include Credential): Max Rainey MD Scribe Attestation: Barber Lee, scribed for Max Rainey MD on 10/17/18 at 2105. Scribe Documentation Reviewed: Yes Provider Attestation: The documentation as recorded by the scribe, Barber Godfrey accurately reflects the service I personally performed and the decisions made by me, Max Rainey MD Status of Scribe Document: Viewed
[2018-10-17 21:05] LABS: ABS Basophils 0.1 10^3/ul (0-0.2); ABS Eosinophils 0.3 10^3/ul (0-0.6); ABS Lymphocytes 2.5 10^3/ul (1.0-4.8); ABS Monocytes 0.8 10^3/ul (0-0.8); ABS Neutrophils 3.9 10^3/ul (1.5-7.7); Eosinophil % 3.7 %; Hematocrit 39 % (42-52); Hemoglobin 12.5 g/dL (14.0-18.0); Lymphocyte % 32.8 %; Mean Corpuscular HGB Conc 32 g/dL (31-36); Mean Corpuscular Hemoglobin 26 pg (27-31); Mean Corpuscular Volume 82 fL (80-94); Mean Platelet Volume 7.9 fL (7.4-10.4); Nucleated Red Blood Cells % 0.1; Platelet Count 195 10^3/uL (150-450); Red Blood Count 4.75 10^6 /uL (4.18-5.48); Red Cell Distribution Width 15 % (10.5-15); White Blood Count 7.5 10^3/uL (3.5-10.8)
[2018-10-17 21:19] VITALS: BP 148/84
[2018-10-17 21:21] LABS: Albumin 3.7 g/dL (3.2-5.2); Albumin/Globulin Ratio 1.2 (1-3); BUN/Creatinine Ratio 9.9 (8-20); Calcium 8.7 mg/dL (8.6-10.3); EGFR African American 82.6 (>60); EGFR Non-African American 68.3 (>60); Potassium 4.4 mmol/L (3.5-5.0); Total Bilirubin 0.5 mg/dL (0.2-1.0); Total Protein 6.7 g/dL (6.4-8.9)
--- NOTE | 2018-10-18 00:11 | ED ---
Progress - Progress Note Progress Note: Progress note being made due to the PE not being placed in the original chart prior to transfer. Appearance: Laying on stretcher with slight discomfort. Skin: Warm, dry, no obvious rash Eyes: sclera anicteric, no conjunctival pallor ENT: mucous membranes moist, pharynx appears normal Neck: Supple, nontender Respiratory: Clear to auscultation, no signs of respiratory distress Cardiovascular: Bradycardia, BP is normal. Perfusion is normal. Normal S1, S2. No murmurs. Normal distal pulses in tibial and radial bilaterally. Abdomen: Soft, diffuse tenderness, normal active bowel sounds present Musculoskeletal: Normal, Strength/ROM Intact, Chest is nontender Neurological: A&Ox3, awake and alert, mentation is normal, speech is fluent and appropriate Psychiatric: affect is normal, anxious - Consult/PCP Time Called: 20:00 Consult/PCP: Dr. Castillo at [facility] Consult Reason/Comments: Pt was transfered to [facility], Dr. Castillo is the accepting physician Re-Evaluation - Re-Evaluation First Eval Re-Evaluation Time: 20:00 Comment: I told the pt about the decision to transfer him via helicopter to [facility] to receive treatment from Dr. aCstillo. Pt is agreeable and will be transfered. 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 The patient rates the pain an 8/10 in severity and states that he has been urinating a lot of blood. The pt reports that after the pain started he drove to the ED. He also reports that he has nausea, vomiting, headaches, and lightheadedness. The pt reports a Hx of AAA which was removed in [place] approximately one year ago. he had similar symptoms last starting last week but was not Dx with any acute or chronic illnesses. The patient was immediately evaluated by me on arrival to his room and sent for emergent CTA of his chest abdomen and pelvis given the history of aortic dissection. This did show an aortic dissection so I began making arrangements to have him transferred emergently by air to [facility]. However on researching further records and speaking with the covering vascular surgeon at [facility], the patient has a long history of aortic dissection with a number presentations both here and in [place] and has always been treated medically. He had a follow-up CTA done about a week ago here, and I reviewed those images and compare them to today's, and they look grossly similar to me. Nonetheless he was a symptomatically then , but is now quite symptomatically with abrupt onset of pain so I am concerned that he may have some complication of his chronic dissection. Accordingly arrangements are being made to send him emergently to [place], I spoke to the covering vascular surgeon as well as the emergency physician, and the patient presently is stable with a blood pressure in the 120-140 systolic range, and a heart rate in the 50s. - Diagnoses Provider Diagnoses: Thoracic aortic dissection Discharge - Sign-Out/Discharge Documenting (check all that apply): Patient Departure - transfer to [facility] Receiving patient FROM: Ruth Cunha Patient Received Moderate/Deep Sedation with Procedure: No - Discharge Plan Condition: Guarded Disposition: TRANS HIGHER LVL OF CARE FAC Referrals: Rajan London DO [Primary Care Provider] - - Billing Disposition and Condition Condition: GUARDED Disposition: Trans Higher Lvl of Care Fac - Attestation Statements Document Initiated by Karen: Yes Documenting Scribe: Barber Donahue Provider For Whom Karen is Documenting (Include Credential): Max Rainey MD Scribe Attestation: I, Barber Donahue, ollieed for Max Rainey MD on 10/18/18 at 0511. Scribe Documentation Reviewed: Yes Provider Attestation: The documentation as recorded by the Barber ariza accurately reflects the service I personally performed and the decisions made by me, Max Rainey MD Status of Scribe Document: Viewed
== END 2018-10-17 21:26 | disposition short-term general hospital (02) ==
LOC: ED 20:06
DX: I71.01 Dissection of thoracic aorta (principal); R10.9 Unspecified abdominal pain; M54.9 Dorsalgia, unspecified; R31.9 Hematuria, unspecified; R11.2 Nausea with vomiting, unspecified; Z88.0 Allergy status to penicillin; I10 Essential (primary) hypertension; Z87.891 Personal history of nicotine dependence
CPT/HCPCS: 36415; 71275; 74174; 80053; 83605; 84484; 85025; 93005; 96374; 99285; J2270; Q9967

== ENCOUNTER → 2018-11-09 16:56 | Emergency (ER) | payer OTHER ==
[~2018-11-09 16:56] MED LIST: HYDROmorphone INJ1* 1 MG/ML SYRINGE IV SLOW PU ONE; Iohexol 350* (CONTRAST) 500 ML MDV IV ONE; Ondansetron INJ* 2 MG/ML VIAL IV ONE; Sucralfate TAB* 1 GM PO ONE
--- NOTE | 2018-11-09 17:35 | ED ---
Abdominal Pain/Male - HPI Summary HPI Summary: This patient is a 58 year old M w/ PMHx of AAA with dissection who presents to [facility] by EMS with a chief complaint of intermittent epigastric pain. He characterizes the pain as a "burning" sensation. He states that he has had two episodes of such pain. The first episode was two days ago. Today, patient was in [place] when he felt what he describes as a "normal stomach ache". Afterwards, it began to be a burning pain which radiated to back when he stood upon. During episodes pt reports severity of 8/10. At present, he rates pain 3-4/10. Pt has a PMHx of abdominal aortic aneurism which occurred in 2017. He states that he gets a CT every three months for his AAA w/ dissection and notes that he has an appointment with his surgeon in the next few weeks. - History of Current Complaint Chief Complaint: EDAbdPain Stated Complaint: ABD AND BACK PER EMS Time Seen by Provider: 11/09/18 17:20 Hx Obtained From: Patient Onset/Duration: Sudden Onset, Lasting Minutes Timing: Intermittent, Lasting Minutes Severity Initially: Severe Severity Currently: Mild Pain Intensity: 3 Pain Scale Used: 0-10 Numeric Location: Epigastric Character: Burning Associated Signs And Symptoms: Positive: Back Pain - Allergies/Home Medications Allergies/Adverse Reactions: Allergies Allergy/AdvReac Type Severity Reaction Status Date / Time Adhesive Tape Allergy BURNING, Verified 10/17/18 20:09 IRRITATION TO SKIN bee venom protein (honey bee) Allergy Anaphylatic Verified 10/17/18 20:09 Shock clindamycin Allergy Diarrhea Verified 10/17/18 20:09 Penicillins Allergy Unknown Verified 10/17/18 20:09 Reaction Details BEE STING Allergy Anaphylatic Uncoded 10/17/18 20:09 Shock seasonal allergies Allergy Eyes Uncoded 10/17/18 20:09 Itchy/Swollen/Red/Watery Home Medications: Home Medications Fluticasone NASAL SPRAY 50MCG* [Flonase NASAL SPRAY 50MCG*] 2 spray BOTH NARES DAILY 11/09/18 [History Confirmed 11/09/18] Lisinopril [Lisinopril 2.5 MG-] 2.5 mg PO DAILY 11/09/18 [History Confirmed ] Rosuvastatin Calcium 20 mg PO DAILY 11/09/18 [History Confirmed 11/09/18] Tenofovir/Emtricitab 200/300 * [Truvada 200/300 mg*] 1 tab PO BEDTIME 11/09/18 [ History Confirmed 11/09/18] PMH/Surg Hx/FS Hx/Imm Hx Endocrine/Hematology History: Denies: Hx Diabetes - HX OF BEFORE WEIGHT LOSS, Hx Thyroid Disease Cardiovascular History: Reports: Hx Hypertension - was not on meds prior to Denies: Hx Congestive Heart Failure Respiratory History: Reports: Hx Asthma - USES INHALER, Hx Chronic Bronchitis, Hx Chronic Obstructive Pulmonary Disease (COPD), Hx Pneumonia, Hx Sleep Apnea - HX OF GI History: Reports: Hx Gastroesophageal Reflux Disease - ACID REFLUX, Other GI Disorders - gastric bypass surgery, 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 Denies: Hx Ulcer History: Denies: Hx Renal Disease Sensory History: Reports: Hx Contacts or Glasses - GLASSES Denies: Hx Hearing Aid Opthamlomology History: Reports: Hx Contacts or Glasses - GLASSES Neurological History: Reports: Hx Headaches - CLUSTER HEADACHES, Hx Migraine - EVERY 2 WEEKS - Surgical History Surgery Procedure, Year, and Place: 2010 LAPAROSCOPIC GASTRIC BYPASS- [facility] , [facility] [place] 2011 LAPAROSCOPIC REDUCTION AND REPAIR INTERNAL HERNIA, [facility] [place]x Anesthesia Reactions: No Infectious Disease History: No Infectious Disease History: Denies: Hx Hepatitis, Hx Human Immunodeficiency Virus (HIV), Traveled Outside the [place] in Last 30 Days - Family History Known Family History: Positive: Cardiac Disease - Father: [place] Family History: Father: stroke. Sister: liver and stomach CA - Social History Alcohol Use: Rare Alcohol Amount: wine Hx Substance Use: No Substance Use Type: Reports: None Hx Tobacco Use: Yes - not currently Smoking Status (MU): Former Smoker Type: Cigarettes Amount Used/How Often: 1PPD Have You Smoked in the Last Year: No Review of Systems Positive: Abdominal Pain Positive: Other - Positive: Back Pain All Other Systems Reviewed And Are Negative: Yes Physical Exam - Summary Physical Exam Summary: Appearance: The patient is well-nourished in no acute distress and in no acute pain. Skin: The skin is warm and dry and skin color reflects adequate perfusion. HEENT: The head is normocephalic and atraumatic. The pupils are equal and reactive. The conjunctivae are clear and without drainage. Nares are patent and without drainage. Mouth reveals moist mucous membranes and the throat is without erythema and exudate. The external ears are intact. The ear canals are patent and without drainage. The tympanic membranes are intact. Neck: The neck is supple with full range of motion and non-tender. There are no carotid bruits. There is no neck vein distemension. Respiratory: Chest is non-tender. Lungs are clear to auscultation and breath sounds are symmetrical and equal. Cardiovascular: Heart is regular rate and rhythm. There is no murmur or rub auscultated. There is no peripheral edema and pulses are symmetrical and equal. Abdomen: The abdomen is soft and tender in epigastric region. There are normal bowel sounds heard in all four quadrants and there is no organomegaly palpated. Musculoskeletal: There is no back tenderness noted. Extremities are non-tender with full range of motion. There is good capillary refill. There is no peripheral edema or calf tenderness elicited. No brewery. No mass Neurological: Patient is alert and oriented to person, place and time. The patient has symmetrical motor strength in all four extremities. Cranial nerves are grossly intact. Deep tendon reflexes are symmetrical and equal in all four extremities. Psychiatric: The patient has an appropriate affect and does not exhibit any anxiety or depression. Triage Information Reviewed: Yes Vital Signs On Initial Exam: Initial Vitals Temp Pulse Resp BP Pulse Ox 98.8 F 45 16 116/80 97 11/09/18 17:01 11/09/18 17:01 11/09/18 17:01 11/09/18 17:01 11/09/18 17:01 Vital Signs Reviewed: Yes Diagnostics - Vital Signs Vital Signs Temp Pulse Resp BP Pulse Ox 11/09/18 17:01 98.8 F 45 16 116/80 97 - Laboratory Result Diagrams: 11/09/18 17:59 11/09/18 17:59 Lab Statement: Any lab studies that have been ordered have been reviewed, and results considered in the medical decision making process. - CT CT ABD/PEL CT Interpretation Completed By: Radiologist Summary of CT Findings: CT CHEST IMPRESSION: Stable type B thoracic aortic dissection with associated fusiform aneurysm of. the distal arch and descending aorta. No rupture. See concurrently obtained abdomen and pelvis CT for further details. CT ABD/PEL IMPRESSION: 1. Stable abdominal aortic dissection with fusiform aneurysm of the aorta. No. rupture. 2. 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 3. Findings suggesting abnormal arterial flow to the left kidney, although the. left renal artery arises from the true lumen. 4. 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 Consider. Doppler ultrasound evaluation of the celiac artery. THIS REPORT WAS REVIEWED BY ED PHYSICIAN. Re-Evaluation - Re-Evaluation First Eval Re-Evaluation Time: 22:07 Comment: Results of labs and tests discussed with the patient, patient to be discharged to home with PCP follow up as soon as possible. Abdominal Pain Male Course/Dx - Course Course Of Treatment: Mr. Howard presented with the sudden onset of epigastric pain. It happened the day or so ago and then again today. It initiated and then rapidly escalated to severe pain. He went and sat in his car as he had been in a store. He had called a friend and by the time the friend got there his pain was improved and he got out of the car to speak with his friend while waiting for the ambulance and the pain returned. By the time I see him it is improved some again although he still has pain. He also has epigastric tenderness. He reports that he has a AAA that is scheduled to be surgically repaired in a couple weeks. He was nontoxic in appearance with stable vitals. I couldn't convincingly feel the AAA or hear any bruit. CTA was obtained and was read as unchanged from his previous CTA by the radiologist. I discussed results with him and recommended trying a dose of sucralfate as he reported that he hadn't had anything to eat and his stomach felt acidic. Apparently his primary nurse was very busy and it took a long time for him to get that medication. He became frustrated and refused to stay to see if it worked. He also began to complain of the fact that he had been transferred up to [place] when his dissection initially occurred and he felt that was inappropriate. He insisted on leaving and certainly seem to be stable although I could not tell him for certain that it was not his aneurysm that was causing the pain, there was certainly no evidence for leakage or rapidly expanding - Diagnoses Provider Diagnoses: Epigastric pain Discharge - Sign-Out/Discharge Documenting (check all that apply): Patient Departure - discharge Patient Received Moderate/Deep Sedation with Procedure: No - Discharge Plan Condition: Stable Disposition: HOME Patient Education Materials: Epigastric Pain (ED) Referrals: Rajan London, [Primary Care Provider] - As Soon As Possible Additional Instructions: RETURN TO ED FOR ANY NEW OR WORSENING SYMPTOMS. FOLLOW UP WITH YOUR PRIMARY CARE PHYSICIAN SOON POSSIBLE. - Billing Disposition and Condition Condition: STABLE Disposition: Home - Attestation Statements Document Initiated by Annita: Yes Documenting Scribe: TIM KEANE Provider For Whom Annita is Documenting (Include Credential): ELVA HARDY MD Scribe Attestation: ILENYN GAYATRI PRAKASH, scribed for ELVA HARDY MD on 11/09/18 at 2232. Scribe Documentation Reviewed: Yes Provider Attestation: The documentation as recorded by the annita, TIM KEANE accurately reflects the service I personally performed and the decisions made by me, ELVA HARDY MD Status of Scribe Document: Viewed
[2018-11-09 18:05] LABS: ABS Eosinophils 0.5 10^3/ul (0-0.6); ABS Lymphocytes 1.7 10^3/ul (1.0-4.8); ABS Monocytes 0.7 10^3/ul (0-0.8); ABS Neutrophils 4.2 10^3/ul (1.5-7.7); Eosinophil % 6.4 %; Hematocrit 36 % (42-52); Hemoglobin 11.8 g/dL (14.0-18.0); Lymphocyte % 23.8 %; Mean Corpuscular HGB Conc 33 g/dL (31-36); Mean Corpuscular Hemoglobin 27 pg (27-31); Mean Corpuscular Volume 82 fL (80-94); Mean Platelet Volume 7.2 fL (7.4-10.4); Platelet Count 492 10^3/uL (150-450); Red Blood Count 4.32 10^6 /uL (4.18-5.48); Red Cell Distribution Width 16 % (10-15)
[2018-11-09 18:23] LABS: ALT 49 U/L (7-52); AST 82 U/L (13-39); Albumin 3.7 g/dL (3.2-5.2); Albumin/Globulin Ratio 1.3 (1-3); Alkaline Phosphatase 152 U/L (34-104); Anion Gap 3 mmol/L (2-11); BUN/Creatinine Ratio 11.2 (8-20); Blood Urea Nitrogen 11 mg/dL (6-24); C Reactive Protein < 1.00 mg/L (<8.01); CO2 Carbon Dioxide 27 mmol/L (22-32); Calcium 8.9 mg/dL (8.6-10.3); Chloride 107 mmol/L (101-111); EGFR African American 95.4 (>60); EGFR Non-African American 78.8 (>60); Globulin 2.9 g/dL (2-4); Glucose 101 mg/dL (70-100); Potassium 4.8 mmol/L (3.5-5.0); Sodium 137 mmol/L (135-145); Total Protein 6.6 g/dL (6.4-8.9)
[2018-11-09 20:21] LABS: Urine Appearance Cloudy; Urine Bacteria Absent (Absent); Urine Bilirubin Negative (Negative); Urine Blood 2+ (Negative); Urine Color Yellow; Urine Glucose Negative (Negative); Urine Ketones Negative (Negative); Urine Nitrite Negative (Negative); Urine Protein Negative (Negative); Urine Red Blood Cell 3+(>10/hpf) (Absent); Urine Squamous Epithelial Cell Present (Absent); Urine Urobilinogen Negative (Negative); Urine White Blood Cell 3+(>20/hpf) (Absent)
[2018-11-09 22:32] VITALS: BP 123/70
== END | disposition home or self-care (01) ==
LOC: ED 16:56
DX: R10.13 Epigastric pain (principal); I10 Essential (primary) hypertension; Z79.899 Other long term (current) drug therapy; Z87.891 Personal history of nicotine dependence
CPT/HCPCS: 36415; 71275; 74174; 80053; 81003; 81015; 83605; 83690; 85025; 86140; 87086; 99283; A9270-GY; J1170; J2405; Q9967